=== PATIENT | female | born 1955 | race Caucasian/White ===

== ENCOUNTER 2017-12-06 12:02 | Inpatient (IN) | payer OTHER ==
[2017-12-06] MEDS ORDERED: SODIUM CHLORIDE 1,000 ML IV STA (12:22)
[2017-12-06] MEDS ORDERED: morphine CARPU-JECT 4 MG/1 ML DISP.SYRIN IVPUSH ONE ×3 (12:22→14:38)
[2017-12-06] MEDS ORDERED: ONDANSETRON 4 MG/2 ML VIAL IVPUSH ONE (12:22)
[2017-12-06] MEDS ORDERED: CIPROFLOXACIN 400 MG/D5W 400 MG/200 ML IVPB IVPB ONE (12:23)
--- NOTE | 2017-12-06 12:42 | PDOC ---
Attending Attestation - Resident Resident Name: Baron Galaviz - ED Attending Attestation I have performed the following: I have examined & evaluated the patient, The case was reviewed & discussed with the resident, I agree w/resident's findings & plan, Exceptions are as noted - HPI HPI: 12/06/17 12:42 Ms Pierre is a 62-year-old female with a history of recurrent diverticulitis who presents emergency department with a complaint of left lower quadrant pain. No fever or chills. She's noticed abdominal distention. - Physicial Exam PE: 12/06/17 12:50 GENERAL: The patient is in no acute distress. LUNGS: Breath sounds equal, clear to auscultation bilaterally. No wheezes, and no crackles. HEART:Regular rate and rhythm, normal S1 and S2 without murmur, rub or gallop. ABDOMEN: Soft, distended, LLQ tenderness to palpation EXTREMITIES: Normal range of motion NEUROLOGICAL: Cranial nerves II through XII grossly intact. Normal speech. No focal neurological deficits. MUSCULOSKELETAL: Back non-tender to palpation, no CVA tenderness SKIN: Warm, Dry, normal turgor, no rashes or lesions noted. - Medical Decision Making 12/06/17 12:51 62 yo F presenting to the ER with a complaint of abdominal pain H/o diverticulosis DD: Complicated vs Uncomplicated diverticulitis, SBO, Colitis, Will do: Labs CT Re assess 12/06/17 13:50 EKG: Sinus rhythm, rate of 71 bpm, axis is normal, intervals are normal, no ST elevations or depressions, T waves upright 12/06/17 13:52 Laboratory Tests 12/06/17 12/06/17 12/06/17 12:49 12:49 12:49 WBC 14.7 H Hgb 13.0 Hct 39.0 Plt Count 206 INR 0.99 BUN 14 Creatinine 0.5 L Lipase [address] P[address] CT demonstrates uncomplicated diverticulitis Will admit Given Abx
--- NOTE | 2017-12-06 12:58 | PDOC ---
History of Present Illness - General Chief Complaint: Pain, Acute Stated Complaint: ABD PAIN (PCP SENT) Time Seen by Provider: 12/06/17 12:12 History Source: Patient Exam Limitations: No Limitations - History of Present Illness Initial Comments: 12/06/17 12:52 Patient is a 62F with history of diverticulitis (x2, treated with outpatient abx by Dr Pinto, GI) and hysterectomy here today complaining of LLQ abdominal pain that started at midnight last night. Patient states that the pain onset insidiously and gradually worsened. She states that this feels like her prior episodes of diverticulitis. Patient denies fevers, chills, vomiting. Endorses nausea and abdominal distention. Denies pain with urination. Last bowel movement this morning. Pain is worse with inspiration, cough, movement. Past History - Past Medical History Allergies/Adverse Reactions: Allergies Allergy/AdvReac Type Severity Reaction Status Date / Time No Known Allergies Allergy Verified 12/06/17 12:06 COPD: No GI Disorders: Yes (diverticulitis) Hypercholesterolemia: Yes - Immunization History Immunization Up to Date: Yes - Suicide/Smoking/Psychosocial Hx Smoking History: Current every day smoker Number of Cigarettes Smoked Daily: 5 Information on smoking cessation initiated: No Review of Systems - Review of Systems Comments:: 12/06/17 12:55 GENERAL/CONSTITUTIONAL: No fever or chills. No weakness. HEAD, EYES, EARS, NOSE AND THROAT: No change in vision. No sore throat. CARDIOVASCULAR: No chest pain or shortness of breath RESPIRATORY: Positive for cough. Negative for wheezing, or hemoptysis. GASTROINTESTINAL: Positive for nausea. Negative for vomiting, diarrhea or constipation. GENITOURINARY: No dysuria, frequency, or change in urination. MUSCULOSKELETAL: No joint or muscle swelling or pain. No neck or back pain. SKIN: No rash NEUROLOGIC: No headache, vertigo, loss of consciousness, or change in strength/ sensation. HEMATOLOGIC/LYMPHATIC: No anemia, easy bleeding, or history of blood clots. ALLERGIC/IMMUNOLOGIC: No hives or skin allergy. *Physical Exam - Vital Signs Last Vital Signs Temp Pulse Resp BP Pulse Ox 97.8 F 90 18 177/98 100 12/06/17 12:06 12/06/17 12:06 12/06/17 12:06 12/06/17 12:06 12/06/17 12:06 - Physical Exam Comments: 12/06/17 12:58 GENERAL: Awake, alert, and fully oriented, in no acute distress HEAD: No signs of trauma, normocephalic, atraumatic EYES: PERRLA, EOMI, sclera anicteric, conjunctiva clear ENT: Auricles normal inspection, hearing grossly normal, nares patent, oropharynx clear without exudates. Moist mucosa NECK: Normal ROM, supple, no lymphadenopathy, JVD, or masses LUNGS: No distress, speaks full sentences, clear to auscultation bilaterally HEART: Regular rate and rhythm, normal S1 and S2, no murmurs, rubs or gallops, peripheral pulses normal and equal bilaterally. ABDOMEN: Distended, tender in LLQ, no rebound, positive for voluntary guarding. EXTREMITIES: Normal inspection, Normal range of motion, no edema. No clubbing or cyanosis. 2+ pulses bilaterally. NEUROLOGICAL: Cranial nerves II through XII grossly intact. Normal speech, no focal sensorimotor deficits SKIN: Warm, Dry, normal turgor, no rashes or lesions noted. ED Treatment Course - LABORATORY CBC & Chemistry Diagram: 12/06/17 12:49 12/06/17 12:49 - RADIOLOGY Radiology Studies Ordered: Category Date Time Status ABDOMEN & PELVIS CT WITH CONTR [CT] Stat CT Scan 12/06/17 12:25 Ordered CXRPORT [CHEST X-RAY PORTABLE*] [RAD] Stat Radiology 12/06/17 12:23 Ordered Medical Decision Making - Medical Decision Making 12/06/17 12:59 Patient is 62F with history of diverticulitis and hysterectomy here today complaining of 12 hours of LLQ pain. Pain consistent with prior episodes of diverticulitis. Exam consistent with diverticulitis, but also concerned for possible perforation. Will do abdominal workup, cxr, ekg. Will treat with fluids , morphine, zofran, metronidazole and cipro. Treating empirically for diverticulitis. 12/06/17 14:21 Laboratory Tests 12/06/17 12/06/17 12:49 12:49 WBC 14.7 H Hgb 13.0 Plt Count 206 BUN 14 Creatinine 0.5 L CBC shows leukocytosis to 15. CMP reassuring. Lipase negative. CXR shows no free air, no acute cardiopulmonary process. CT scan pending. 12/06/17 14:38 Pt reassessed, still having significant pain. Given 4mg more of morphine. 12/06/17 17:15 CT shows extensive diverticulitis. No evidence of perforation or diverticulitis. Will admit hospitalist. Consult put in for Dr Pinto. *DC/Admit/Observation/Transfer Diagnosis at time of Disposition: Diverticulitis - Discharge Dispostion Condition at time of disposition: Stable Decision to Admit order: Yes - Referrals Referrals: Joaquim Jackson [Primary Care Provider] - - Patient Instructions - Post Discharge Activity
[2017-12-06 13:03] LABS: BASO % 0.4 % (0-2.0); EOS % 2.5 % (0-4.5); LYMPH % 13.5 % (8-40); MCH 29.8 pg (25.7-33.7); MCHC 33.4 g/dl (32.0-36.0); MEAN CELL VOLUME 89.2 fl (80-96); MEAN PLT VOLUME 9.2 fl (7.5-11.1); MONO % 10.1 % (3.8-10.2); NEUT % 73.5 % (42.8-82.8); PLATELET COUNT 206 K/MM3 (134-434); RBC 4.37 M/mm3 (3.60-5.2); RDW 13.8 % (11.6-15.6); WHITE BLOOD COUNT 14.7 K/mm3 (4.0-10.0)
[2017-12-06] MEDS ORDERED: morphine SULFATE 4 MG/ML VIAL ONE ×3 (13:04→19:04)
[2017-12-06] MEDS ORDERED: ONDANSETRON 4 MG/2 ML VIAL ONE (13:04)
[2017-12-06 13:25] LABS: INR 0.99 (0.82-1.09); PROTHROMBIN TIME (PATIENT) 11.2 SEC (9.7-13.0)
[2017-12-06 13:41] LABS: ALBUMIN 3.8 g/dl (3.4-5.0); ANION GAP 7 (8-16); BLOOD UREA NITROGEN 14 mg/dL (7-18); CALCIUM 9.1 mg/dL (8.5-10.1); CHLORIDE 101 mmol/L (98-107); CO2 30 mmol/L (21-32); CREATININE 0.5 mg/dL (0.55-1.02); GLUCOSE,RANDOM 113 mg/dL (74-106); LIPASE 174 U/L (73-393); POTASSIUM 4.1 mmol/L (3.5-5.1); SGOT/AST 19 U/L (15-37); SGPT/ALT 27 U/L (12-78); SODIUM 138 mmol/L (136-145)
[2017-12-06 13:43] LABS: ALK PHOS 123 U/L (45-117); BILIRUBIN,TOTAL 0.3 mg/dL (0.2-1.0); TOT PROT 7.5 g/dl (6.4-8.2)
--- NOTE | 2017-12-06 15:04 | EKG ---
Test Reason : Blood Pressure : / mmHG Vent. Rate : 071 BPM Atrial Rate : 071 BPM P-R Int : 194 ms QRS Dur : 078 ms QT Int : 416 ms P-R-T Axes : 057 022 038 degrees QTc Int : 452 ms NORMAL SINUS RHYTHM POSSIBLE LEFT ATRIAL ENLARGEMENT BORDERLINE ECG NO PREVIOUS ECGS AVAILABLE Confirmed by SIMONE STEWART MD ([id number]) on 12/06/2017 3:03:30 PM Referred By: Confirmed By:SIMONE STEWART MD
[2017-12-06] MEDS ORDERED: morphine CARPU-JECT 4 MG/1 ML DISP.SYRIN IVPUSH PRN (18:26)
--- NOTE | 2017-12-06 20:06 | HP ---
Admitting History and Physical - Primary Care Physician PCP: Emre Grande - Admission Chief Complaint: abd pain History of Present Illness: 62F with history of diverticulitis (x2, treated with outpatient abx by Dr Pinto, GI) and hysterectomy here today complaining of LLQ abdominal pain that started at midnight last night. Patient states that the pain onset insidiously and gradually worsened. She states that this feels like her prior episodes of diverticulitis. Patient denies fevers, chills, vomiting. Endorses nausea and abdominal distention. Denies pain with urination. Last bowel movement this morning. Pain is worse with inspiration, cough, movement. - Past Medical History Gastrointestinal: Yes: Diverticulitis - Smoking History Smoking history: Current every day smoker Aproximately how many cigarettes per day: 5 Home Medications - Allergies Allergies/Adverse Reactions: Allergies Allergy/AdvReac Type Severity Reaction Status Date / Time No Known Allergies Allergy Verified 12/06/17 12:06 - Home Medications Home Medications: Ambulatory Orders Atorvastatin Ca [Lipitor] 10 mg PO HS 12/07/17 Physical Examination Vital Signs: Vital Signs Temperature 97.8 F 12/06/17 12:06 Pulse Rate 90 12/06/17 12:06 Respiratory Rate 18 12/06/17 12:06 Blood Pressure 177/98 12/06/17 12:06 O2 Sat by Pulse Oximetry (%) 100 12/06/17 12:06 Constitutional: Yes: No Distress HENT: Yes: Atraumatic Neck: Yes: Supple Cardiovascular: Yes: Regular Rate and Rhythm Respiratory: Yes: CTA Bilaterally Gastrointestinal: Yes: Normal Bowel Sounds, Tenderness (llq) Extremities: Yes: WNL Edema: No Peripheral Pulses WNL: Yes Neurological: Yes: Alert, Oriented Labs: CBC, BMP 12/06/17 12:49 12/06/17 12:49 Imaging - Results Cat Scan: Report Reviewed Problem List - Problems (1) Diverticulitis Assessment/Plan: npo, ivf, iv abx iv protonix gi consult id consult Code(s): K57.92 - DVTRCLI OF INTEST, PART UNSP, W/O PERF OR ABSCESS W/O BLEED Assessment/Plan Laboratory Tests 12/06/17 12/06/17 12/06/17 12:49 12:49 12:49 WBC 14.7 H RBC 4.37 Hgb 13.0 Hct 39.0 MCV 89.2 MCH 29.8 MCHC 33.4 RDW 13.8 Plt Count 206 MPV 9.2 Neutrophils % 73.5 Lymphocytes % 13.5 Monocytes % 10.1 Eosinophils % 2.5 Basophils % 0.4 PT with INR INR Sodium 138 Potassium 4.1 Chloride 101 Carbon Dioxide 30 Anion Gap 7 L BUN 14 Creatinine 0.5 L Creat Clearance w eGFR > 60 Random Glucose 113 H Calcium 9.1 Total Bilirubin 0.3 AST 19 ALT 27 Alkaline Phosphatase 123 H Total Protein 7.5 Albumin 3.8 Lipase 174 Blood Type B POSITIVE Antibody Screen Negative 12/06/17 12:49 WBC RBC Hgb Hct MCV MCH MCHC RDW Plt Count MPV Neutrophils % Lymphocytes % Monocytes % Eosinophils % Basophils % PT with INR 11.20 INR 0.99 Sodium Potassium Chloride Carbon Dioxide Anion Gap BUN Creatinine Creat Clearance w eGFR Random Glucose Calcium Total Bilirubin AST ALT Alkaline Phosphatase Total Protein Albumin Lipase Blood Type Antibody Screen Active Medications Generic Name Dose Route Start Last Admin Trade Name Freq PRN Reason Stop Dose Admin Morphine Sulfate 4 mg 12/06/17 18:26 12/06/17 19:06 Morphine Injection - IVPUSH 4 mg Q4H PRN Administration PAIN LEVEL 6-10 Active Medications Generic Name Dose Route Start Last Admin Trade Name Freq PRN Reason Stop Dose Admin Sodium Chloride 1,000 mls @ 75 mls/hr 12/06/17 20:15 12/08/17 15:49 Normal Saline - IV 75 mls/hr ASDIR NICOLE Administration Piperacillin Sod/Tazobactam 50 mls @ 100 mls/hr 12/06/17 21:15 12/08/17 09:19 Sod 3.375 gm/ Dextrose IVPB 100 mls/hr Q8H-IV NICOLE Administration Protocol Morphine Sulfate 2 mg 12/06/17 23:15 12/08/17 15:48 Morphine Sulfate IVPUSH 2 mg Q3H PRN Administration PAIN LEVEL 4-10
[2017-12-06 20:44] LABS: URINE APPEARANCE CLEAR; URINE BILIRUBIN NEGATIVE (<2.0 mg/dL); URINE BLOOD NEGATIVE (NEGATIVE); URINE COLOR STRAW; URINE GLUCOSE (UA) NEGATIVE (NEGATIVE); URINE KETONE NEGATIVE (NEGATIVE); URINE LEUK ESTERASE TRACE (NEGATIVE); URINE NITRITE NEGATIVE (NEGATIVE); URINE PROTEIN NEGATIVE (NEGATIVE); URINE UROBILINOGEN NEGATIVE mg/dL (0.2-1.0)
[2017-12-06 20:49] LABS: EPI CELLS RARE /HPF (FEW)
[2017-12-06] MEDS: SODIUM CHLORIDE 1,000 ML IV SCH (21:16)
[2017-12-06] MEDS ORDERED: PIPERACILLIN/TAZOBACTAM 3.375 GM VIAL IVPB ONE (21:20)
[2017-12-06] MEDS ORDERED: DEXTROSE 5%-WATER - 50 ML IVPB ONE (21:20)
[2017-12-06] MEDS: PIPERACILLIN/TAZOB 3.375 GM 3.375 GM in DEXTROSE 5%-WATER - 50 ML IVPB SCH (21:23)
[2017-12-06 21:52] VITALS: BMI 23.1
[2017-12-06] MEDS: morphine SULFATE 4 MG/ML VIAL IVPUSH PRN (23:21)
[2017-12-07] MEDS ORDERED: PIPERACILLIN/TAZOBACTAM 3.375 GM VIAL IVPB ONE ×3 (02:25→15:56)
[2017-12-07] MEDS ORDERED: DEXTROSE 5%-WATER - 50 ML IVPB ONE ×3 (02:26→15:56)
[2017-12-07] MEDS: PIPERACILLIN/TAZOB 3.375 GM 3.375 GM in DEXTROSE 5%-WATER - 50 ML IVPB SCH ×3 (03:10→17:18)
[2017-12-07 07:27] LABS: BASO % 0.3 % (0-2.0); EOS % 3.6 % (0-4.5); HEMOGLOBIN 12.6 GM/dL (10.7-15.3); LYMPH % 15.1 % (8-40); MCH 30.2 pg (25.7-33.7); MCHC 34.1 g/dl (32.0-36.0); MEAN CELL VOLUME 88.7 fl (80-96); MEAN PLT VOLUME 9.4 fl (7.5-11.1); MONO % 9.3 % (3.8-10.2); NEUT % 71.7 % (42.8-82.8); PLATELET COUNT 222 K/MM3 (134-434); RBC 4.17 M/mm3 (3.60-5.2); RDW 13.7 % (11.6-15.6); WHITE BLOOD COUNT 12.5 K/mm3 (4.0-10.0)
[2017-12-07 07:53] LABS: CHLORIDE 104 mmol/L (98-107); POTASSIUM 4.1 mmol/L (3.5-5.1); SODIUM 139 mmol/L (136-145)
[2017-12-07 08:04] LABS: ALBUMIN 3.4 g/dl (3.4-5.0); ALK PHOS 116 U/L (45-117); ANION GAP 8 (8-16); BILIRUBIN,TOTAL 0.7 mg/dL (0.2-1.0); BLOOD UREA NITROGEN 9 mg/dL (7-18); CALCIUM 8.7 mg/dL (8.5-10.1); CO2 27 mmol/L (21-32); CREATININE 0.7 mg/dL (0.55-1.02); GLUCOSE,RANDOM 108 mg/dL (74-106); SGOT/AST 14 U/L (15-37); SGPT/ALT 23 U/L (12-78); TOT PROT 6.8 g/dl (6.4-8.2)
[2017-12-07] MEDS: morphine SULFATE 4 MG/ML VIAL IVPUSH PRN ×3 (08:10→23:57)
--- NOTE | 2017-12-07 14:44 | CON.ID ---
Consult Consult Specialty:: infectious diseases Reason for Consultation:: diverticulitis - History of Present Illness Chief Complaint: abd pain History of Present Illness: 62F with history of diverticulitis x2, and hysterectomy here today complaining of LLQ abdominal pain that started at midnight last night. Patient states that the pain onset insidiously and gradually worsened. patient mentions that she had distension of her abdomen currently she is feeling a little better,but she is very tender . Patient denies fevers, chills, vomiting. Endorses nausea and abdominal distention. Denies pain with urination. Pain is worse with inspiration, cough, movement. otherwise patient is stable - History Source History Provided By: Patient Limitations to Obtaining History: No Limitations - Past Medical History Gastrointestinal: Yes: Diverticulitis - Alcohol/Substance Use Hx Alcohol Use: No - Smoking History Smoking history: Current every day smoker Aproximately how many cigarettes per day: 5 Home Medications - Allergies Allergies/Adverse Reactions: Allergies Allergy/AdvReac Type Severity Reaction Status Date / Time No Known Allergies Allergy Verified 12/06/17 12:06 - Home Medications Home Medications: Ambulatory Orders Atorvastatin Ca [Lipitor] 10 mg PO HS 12/07/17 Review of Systems - Review of Systems Constitutional: reports: No Symptoms Eyes: reports: No Symptoms HENT: reports: No Symptoms Neck: reports: No Symptoms Cardiovascular: reports: No Symptoms Respiratory: reports: No Symptoms Gastrointestinal: reports: Abdominal Pain, Bloating, Other Genitourinary: reports: No Symptoms Musculoskeletal: reports: No Symptoms Integumentary: reports: No Symptoms Neurological: reports: No Symptoms Endocrine: reports: No Symptoms Hematology/Lymphatic: reports: No Symptoms Psychiatric: reports: No Symptoms Physical Exam Vital Signs: Vital Signs Temperature 99.1 F 12/07/17 13:58 Pulse Rate 74 12/07/17 13:58 Respiratory Rate 18 12/07/17 13:58 Blood Pressure 147/76 12/07/17 13:58 O2 Sat by Pulse Oximetry (%) 98 12/06/17 20:40 Constitutional: Yes: Well Nourished, Calm, Moderate Distress Eyes: Yes: Conjunctiva Clear HENT: Yes: Atraumatic, Normocephalic Neck: Yes: Supple, Trachea Midline Cardiovascular: Yes: Regular Rate and Rhythm Respiratory: Yes: Regular, CTA Bilaterally Gastrointestinal: Yes: Soft, Hypoactive Bowel Sounds, Tenderness. No: Tenderness, Rebound Musculoskeletal: Yes: WNL Extremities: Yes: WNL Neurological: Yes: Alert, Oriented Psychiatric: Yes: Alert, Oriented Labs: CBC, BMP 12/07/17 06:30 12/07/17 06:30 Imaging - Results Chest X-ray: Report Reviewed, Image Reviewed Cat Scan: Report Reviewed, Image Reviewed Assessment/Plan Problem List - Problems (1) Diverticulitis Code(s): K57.92 - DVTRCLI OF INTEST, PART UNSP, W/O PERF OR ABSCESS W/O BLEED abd pain plan will start patient on zosyn npo hydration gi to see the patient rest continue as per the team
--- NOTE | 2017-12-07 18:25 | CON.GI ---
Consult Consult Specialty:: GI: Dr. Chan covering for Dr. Vega who resumes care Referred by:: Dr. Kwon Reason for Consultation:: Recurrent diverticulitis - History of Present Illness Chief Complaint: "This is my 3rd episode of Diverticulitis" History of Present Illness: 62F admitted through [facility] ER yesterday for progressively worsening left lower abdominal pain and bloating. She states that she has loose BM's last week that resolved and otherwise was in her usual state of health. She had been on antibiotics a month ago for dental work. In ER triage vitals revealed Ms. Pierre to be afebrile and hypertensive. Blood work revealed a WBC of 14.[address] scan of the abdomen and pelvis revealed an extensive diverticulitis of the mid to distal descending colon. She was admitted, started on Abx and IV fluids. She explains that she is followed by Dr. Jonas Joyce, [facility] who has treated her in the past for diverticulitis. She has had two other episodes , one 6 months ago and the other 6 months prior to that. She says that these episodes were treated on an outpatient basis with cipro and flagyl and that this most recent episode if the most severe in terms of pain. She had a colonoscopy [address] Joyce that was "OK". There is no family history of colorectal cancer or inflammatory bowel disease. Overall Ms. Pierre still describes the pain as intense but somewhat improved from admission. She denies rectal bleeding. Her last bowel movement was this past monday and was formed. - History Source History Provided By: Patient, Family Member ( present at bedside) Limitations to Obtaining History: No Limitations - Past Medical History Cardio/Vascular: Yes: Hyperlipdemia Gastrointestinal: Yes: Diverticulitis (recurrent with 2 epispdes prior to the over the last 1.5 years), Diverticulosis - Past Surgical History Past Surgical History: Yes: Hysterectomy (RAVI/BSO) Additional Surgical History: bone graft to gums - Alcohol/Substance Use Hx Alcohol Use: Yes (occasional) History of Substance Use: reports: None - Smoking History Smoking history: Current every day smoker Have you smoked in the past 12 months: Yes Aproximately how many cigarettes per day: 5 - Social History Usual Living Arrangement: With Spouse ADL: Independent Occupation: Works for [employer] - [employer] Place of : Other ([place]) History of Recent Travel: No Home Medications - Allergies Allergies/Adverse Reactions: Allergies Allergy/AdvReac Type Severity Reaction Status Date / Time No Known Allergies Allergy Verified 12/06/17 12:06 - Home Medications Home Medications: Ambulatory Orders Atorvastatin Ca [Lipitor] 10 mg PO HS 12/07/17 Family Disease History - Family Disease History Family Disease History: Other: Father (: 76: CAD/CT), Mother (: 80: fall with intracranial bleed), Brother (None), Sister (1, alive: healthy), Son ( None), Daughter (None) Other Family History: No family history of colorectal cancer or other GI malignancy Review of Systems - Review of Systems Constitutional: denies: Chills, Fever Cardiovascular: denies: Chest Pain Respiratory: denies: Cough, SOB Gastrointestinal: reports: Abdominal Pain, Bloating, Diarrhea (resolved last week), Nausea. denies: Constipation, Dysphagia, Melena, Rectal Bleeding, Vomiting, Vomiting Blood Physical Exam-GI Vital Signs: Vital Signs Temperature 99.1 F 12/07/17 13:58 Pulse Rate 74 12/07/17 13:58 Respiratory Rate 18 12/07/17 13:58 Blood Pressure 147/76 12/07/17 13:58 O2 Sat by Pulse Oximetry (%) 98 12/06/17 20:40 Constitutional: Yes: Calm Eyes: No: Sclera Icterus Cardiovascular: Yes: Regular Rate and Rhythm. No: Murmur Respiratory: Yes: CTA Bilaterally Gastrointestinal Inspection: Yes: Distention (Softly protuberant abdomen). No: Scars ...Auscultate: Yes: Normoactive Bowel Sounds ...Palpate: Yes: Guarding, Soft, Tenderness (marken TTP in the left lower abdomen), Tenderness, Rebound ...Percussion: No: Tympanitic Edema: No (No LE edema) Neurological: Yes: Alert, Oriented Labs: CBC, BMP 12/07/17 06:30 12/07/17 06:30 INR, PTT INR 0.99 (0.82-1.09) 12/06/17 12:49 Imaging - Results Cat Scan: Report Reviewed, Image Reviewed (appears that most extensive inflammatory changes are at the junction of the sigmoid / descending colon.) Problem List - Problems (1) Diverticulitis large intestine Assessment/Plan: Recurrent in nature: This is the 3rd and most significant episode Clinically Ms. Pierre still has a significant amount of abdominal pain on exam with rebound and guarding however describes improvement from initial presentation. Leukocytosis has also improved a bit: Advise: NPO IV hydration with fluid management per PMD. Ms. Pierre could likely handle more maintenance fluid Surgical consult placed to Dr. Zurita to have them on board and given severity of most recent episode, discuss possible elective resection when acute issues are resolved Broad spectrum IV abx: Currently on Zosyn with improving WBC's and ID following If diarrhea, given recent and periodic antibiotics through the year given dental work, check stool for C. Diff Daily labs: CBC, BMP, CRP (ordered for tomorrow) Close monitoring of abdominal exam When acute issues resolve, Ms. Pierre can follow-up with Dr. Jonas Joyce for reevaluation, discuss possible repeat colonoscopy Code(s): K57.32 - DVTRCLI OF LG INT W/O PERFORATION OR ABSCESS W/O BLEEDING Qualifiers: Diverticulitis bleeding: without bleeding Diverticulitis complication: without perforation or abscess Qualified Code(s): K57.32 - Diverticulitis of large intestine without perforation or abscess without bleeding
--- NOTE | 2017-12-07 18:32 | PN ---
Progress Note, Physician History of Present Illness: still has belly pain - Current Medication List Current Medications: Active Medications Sodium Chloride (Normal Saline -) 1,000 mls @ 75 mls/hr IV ASDIR NICOLE Last Admin: 12/06/17 21:16 Dose: 75 mls/hr Piperacillin Sod/Tazobactam (Sod 3.375 gm/ Dextrose) 50 mls @ 100 mls/hr IVPB Q8H-IV NICOLE PRN Reason: Protocol Last Admin: 12/07/17 17:18 Dose: 100 mls/hr Morphine Sulfate (Morphine Sulfate) 2 mg IVPUSH Q3H PRN PRN Reason: PAIN LEVEL 4-10 Last Admin: 12/07/17 16:01 Dose: 2 mg - Objective Vital Signs: Vital Signs Temperature 99.1 F 12/07/17 13:58 Pulse Rate 74 12/07/17 13:58 Respiratory Rate 18 12/07/17 13:58 Blood Pressure 147/76 12/07/17 13:58 O2 Sat by Pulse Oximetry (%) 98 12/06/17 20:40 Constitutional: Yes: No Distress HENT: Yes: Atraumatic Neck: Yes: Supple Cardiovascular: Yes: Regular Rate and Rhythm Respiratory: Yes: CTA Bilaterally Gastrointestinal: Yes: Normal Bowel Sounds, Tenderness (llq) Extremities: Yes: WNL Neurological: Yes: Alert, Oriented Labs: CBC, BMP 12/07/17 06:30 12/07/17 06:30 INR, PTT INR 0.99 (0.82-1.09) 12/06/17 12:49 Problem List - Problems (1) Diverticulitis Assessment/Plan: npo, ivf, iv abx iv protonix Code(s): K57.92 - DVTRCLI OF INTEST, PART UNSP, W/O PERF OR ABSCESS W/O BLEED
[2017-12-07] MEDS: SODIUM CHLORIDE 1,000 ML IV SCH (20:15)
[2017-12-08] MEDS ORDERED: DEXTROSE 5%-WATER - 50 ML IVPB ONE ×3 (00:46→17:30)
[2017-12-08] MEDS ORDERED: PIPERACILLIN/TAZOBACTAM 3.375 GM VIAL IVPB ONE ×3 (00:46→17:30)
[2017-12-08] MEDS: SODIUM CHLORIDE 1,000 ML IV SCH ×2 (02:42→15:49)
[2017-12-08] MEDS: PIPERACILLIN/TAZOB 3.375 GM 3.375 GM in DEXTROSE 5%-WATER - 50 ML IVPB SCH ×3 (02:42→17:41)
[2017-12-08] MEDS: morphine SULFATE 4 MG/ML VIAL IVPUSH PRN ×3 (07:48→22:23)
[2017-12-08 09:02] LABS: BASO % 0.4 % (0-2.0); EOS % 3.4 % (0-4.5); HEMATOCRIT 37.7 % (32.4-45.2); HEMOGLOBIN 12.7 GM/dL (10.7-15.3); LYMPH % 14.2 % (8-40); MCH 29.8 pg (25.7-33.7); MCHC 33.8 g/dl (32.0-36.0); MEAN CELL VOLUME 88.2 fl (80-96); MEAN PLT VOLUME 9.2 fl (7.5-11.1); MONO % 6.4 % (3.8-10.2); NEUT % 75.6 % (42.8-82.8); PLATELET COUNT 219 K/MM3 (134-434); RBC 4.27 M/mm3 (3.60-5.2); RDW 13.6 % (11.6-15.6); WHITE BLOOD COUNT 13.6 K/mm3 (4.0-10.0)
[2017-12-08 09:31] LABS: ANION GAP 9 (8-16); BLOOD UREA NITROGEN 7 mg/dL (7-18); CALCIUM 8.4 mg/dL (8.5-10.1); CHLORIDE 106 mmol/L (98-107); CO2 24 mmol/L (21-32); GLUCOSE,RANDOM 79 mg/dL (74-106); POTASSIUM 3.9 mmol/L (3.5-5.1); SODIUM 139 mmol/L (136-145)
[2017-12-08 09:34] LABS: CREATININE 0.5 mg/dL (0.55-1.02)
--- NOTE | 2017-12-08 13:59 | PN ---
Progress Note, Physician History of Present Illness: patient feeling better pain still present still very tender in the abd but better - Current Medication List Current Medications: Active Medications Sodium Chloride (Normal Saline -) 1,000 mls @ 75 mls/hr IV ASDIR NICOLE Last Admin: 12/08/17 02:42 Dose: 75 mls/hr Piperacillin Sod/Tazobactam (Sod 3.375 gm/ Dextrose) 50 mls @ 100 mls/hr IVPB Q8H-IV NICOLE PRN Reason: Protocol Last Admin: 12/08/17 09:19 Dose: 100 mls/hr Morphine Sulfate (Morphine Sulfate) 2 mg IVPUSH Q3H PRN PRN Reason: PAIN LEVEL 4-10 Last Admin: 12/08/17 07:48 Dose: 2 mg - Objective Vital Signs: Vital Signs Temperature 98 F 12/08/17 07:50 Pulse Rate 62 12/08/17 07:50 Respiratory Rate 18 12/08/17 07:50 Blood Pressure 138/82 12/08/17 07:50 O2 Sat by Pulse Oximetry (%) 97 12/07/17 21:00 Constitutional: Yes: Calm, Mild Distress Cardiovascular: Yes: Regular Rate and Rhythm Respiratory: Yes: Regular, CTA Bilaterally Gastrointestinal: Yes: Soft, Hypoactive Bowel Sounds, Tenderness. No: Tenderness, Rebound Musculoskeletal: Yes: WNL Extremities: Yes: WNL Neurological: Yes: Alert, Oriented Psychiatric: Yes: Alert, Oriented Labs: CBC, BMP 12/08/17 08:25 12/08/17 08:25 INR, PTT INR 0.99 (0.82-1.09) 12/06/17 12:49 Assessment/Plan Problem List - Problems (1) Diverticulitis Code(s): K57.92 - DVTRCLI OF INTEST, PART UNSP, W/O PERF OR ABSCESS W/O BLEED abd pain plan conitnue abx npo hydration monitor wbc rest continue as per the team
--- NOTE | 2017-12-08 17:03 | PN ---
Progress Note, Physician History of Present Illness: pain is better hungry - Current Medication List Current Medications: Active Medications Sodium Chloride (Normal Saline -) 1,000 mls @ 75 mls/hr IV ASDIR NICOLE Last Admin: 12/08/17 15:49 Dose: 75 mls/hr Piperacillin Sod/Tazobactam (Sod 3.375 gm/ Dextrose) 50 mls @ 100 mls/hr IVPB Q8H-IV NICOLE PRN Reason: Protocol Last Admin: 12/08/17 09:19 Dose: 100 mls/hr Morphine Sulfate (Morphine Sulfate) 2 mg IVPUSH Q3H PRN PRN Reason: PAIN LEVEL 4-10 Last Admin: 12/08/17 15:48 Dose: 2 mg - Objective Vital Signs: Vital Signs Temperature 98.7 F 12/08/17 14:11 Pulse Rate 68 12/08/17 14:11 Respiratory Rate 68 H 12/08/17 14:11 Blood Pressure 148/71 12/08/17 14:11 O2 Sat by Pulse Oximetry (%) 97 12/07/17 21:00 Constitutional: Yes: No Distress HENT: Yes: Atraumatic Neck: Yes: Supple Cardiovascular: Yes: Regular Rate and Rhythm Respiratory: Yes: CTA Bilaterally Gastrointestinal: Yes: Normal Bowel Sounds, Tenderness (llq ...better) Extremities: Yes: WNL Neurological: Yes: Alert, Oriented Labs: CBC, BMP 12/08/17 08:25 12/08/17 08:25 INR, PTT INR 0.99 (0.82-1.09) 12/06/17 12:49 Problem List - Problems (1) Diverticulitis Assessment/Plan: will give a trial of clear liquid diet Code(s): K57.92 - DVTRCLI OF INTEST, PART UNSP, W/O PERF OR ABSCESS W/O BLEED
--- NOTE | 2017-12-08 17:32 | PN ---
GI Progress Note Subjective: Gi NOte: LLQ pain is less intense. Has hunger. NO BM so far. Remains afebrile and WBC is decreasing. - Objective Vital Signs: Vital Signs Temperature 98.7 F 12/08/17 14:11 Pulse Rate 68 12/08/17 14:11 Respiratory Rate 68 H 12/08/17 14:11 Blood Pressure 148/71 12/08/17 14:11 O2 Sat by Pulse Oximetry (%) 97 12/07/17 21:00 Constitutional: Calm ...Auscultate: Yes: Normoactive Bowel Sounds ...Palpate: Yes: Soft, Tenderness (LLQ but no rebound) Labs: CBC, BMP 12/08/17 08:25 12/08/17 08:25 INR, PTT INR 0.99 (0.82-1.09) 12/06/17 12:49 Problem List - Problems (1) Diverticulitis large intestine Assessment/Plan: Appears to be responding to antibiotics. Clear liquids already ordered. Dr. Mcintosh will be covering this weekend until 12/11. . Code(s): K57.32 - DVTRCLI OF LG INT W/O PERFORATION OR ABSCESS W/O BLEEDING Qualifiers: Diverticulitis bleeding: without bleeding Diverticulitis complication: without perforation or abscess Qualified Code(s): K57.32 - Diverticulitis of large intestine without perforation or abscess without bleeding
--- NOTE | 2017-12-08 18:21 | PN ---
Progress Note (short form) - Note Progress Note: surgery pt seen and examined. full consult dictated 62f with 3rd bout of diverticulitis in 13 months, first hospitalization, non complicated, on liquids. wbc 13. thickened segment of sigmoid colon on ct. plan- multiple bouts within short time and now hospitalized in 62 f. last colonoscopy 2011. Pt wishes to cont medical management. Should consider colonoscopy in 6 weeks to r/o malignancy and elective sigmoid colectomy to prevent recurrence. Any surgery in the acute setting would require a colostomy.
--- NOTE | 2017-12-08 19:27 | CONS ---
DATE OF CONSULTATION: 12/08/2017 REASON FOR CONSULTATION: Recurrent diverticulitis. REQUESTING PHYSICIAN: Trey Chan, This is an inpatient consultation. BRIEF HISTORY: This is a 62-year-old female who has now been admitted for her third bout of diverticulitis since November of 2016. This is the first time she has required hospital admission. She was noted to have diverticulitis on CAT scan. She has been placed on intravenous antibiotics, Zosyn, and is currently being put on liquid diet per the GI service. Her last colonoscopy was in 2011. She denies any recent weight loss. Denies blood in her stool. Denies diarrhea. PAST MEDICAL HISTORY: Significant for hyperlipidemia. HOME MEDICATIONS: Include Lipitor. SOCIAL HISTORY: Positive for occasional alcohol consumption as well as occasional tobacco consumption. She has been encouraged to quit. PAST SURGICAL HISTORY: Includes a hysterectomy for fibroid disease many years ago. FAMILY HISTORY: Negative for malignancy in the immediate family. REVIEW OF SYSTEMS: General: Denies fatigue or malaise. Cardiac: Denies chest pain or palpitations. Respiratory: Denies shortness of breath or wheeze. Gastrointestinal: As in the HPI. Genitourinary: Denies dysuria. Musculoskeletal: Denies joint pain or joint swelling. Psychiatric: Denies anxiety, depression, or hearing voices. PHYSICAL EXAMINATION: General: This is a well-developed, well-nourished, 62-year-old female in no distress. Vital Signs: She is afebrile, has been since admission. HEENT: Her head is normocephalic. Her sclerae are anicteric. Neck: Supple. Chest: Clear. Abdomen: Soft. It is nondistended. She has mild tenderness in the left lower quadrant. She has no rebound. Extremities: No edema. LABORATORY DATA: Her white blood cell count is elevated at 13.6. There is no shift. Her chemistries are unremarkable with the exception of a C-reactive protein that is minimally elevated at 3.8. On review of her imaging, she has a CAT scan of her abdomen and pelvis which shows extensive diverticulitis of the descending colon without abscess formation, at its junction with the sigmoid colon. There is no perforation. There is no abscess noted. ASSESSMENT: This is a 62-year-old female with now 3 bouts of diverticulitis in a 13-month period, now becoming more serious, requiring hospitalization. She has an elevated white blood cell count and is being treated with intravenous antibiotics and already been by the medical service. At this point, the patient is not interested in operative management acutely because this would require a colostomy, and she wishes to continue with medical management. Her last colonoscopy was in 2011; so, there is a small possibility that this is actually a malignancy and not diverticulitis, but she is willing to take that risk. At this point, patient should strongly consider elective surgical resection in 6 weeks' time after colonoscopy if medical management is successful. This could be done to prevent future recurrences. I suspect her surgery could be done laparoscopically, although likely she will require a splenic flexure takedown in order to allow enough length in order to reconnect. Patient currently appears nontoxic and would recommend followup with myself or Dr. Eber Zurita after discharge to discuss possible elective surgery. Obviously, if she fails medical management, she will require surgery with an open sigmoid colectomy and colostomy. DO EVRE CAT/[id number] MTDD
[2017-12-09] MEDS ORDERED: PIPERACILLIN/TAZOBACTAM 3.375 GM VIAL IVPB ONE ×3 (00:49→16:16)
[2017-12-09] MEDS ORDERED: DEXTROSE 5%-WATER - 50 ML IVPB ONE ×3 (00:49→16:16)
[2017-12-09] MEDS: PIPERACILLIN/TAZOB 3.375 GM 3.375 GM in DEXTROSE 5%-WATER - 50 ML IVPB SCH ×3 (01:32→17:07)
[2017-12-09 08:22] LABS: BASO % 0.7 % (0-2.0); EOS % 3.8 % (0-4.5); HEMATOCRIT 34.6 % (32.4-45.2); HEMOGLOBIN 12.1 GM/dL (10.7-15.3); LYMPH % 17.9 % (8-40); MCH 30.8 pg (25.7-33.7); MCHC 34.8 g/dl (32.0-36.0); MEAN CELL VOLUME 88.3 fl (80-96); MEAN PLT VOLUME 9.1 fl (7.5-11.1); MONO % 9.4 % (3.8-10.2); NEUT % 68.2 % (42.8-82.8); PLATELET COUNT 199 K/MM3 (134-434); RBC 3.92 M/mm3 (3.60-5.2); RDW 13.6 % (11.6-15.6); WHITE BLOOD COUNT 8.4 K/mm3 (4.0-10.0)
[2017-12-09 08:35] LABS: ANION GAP 6 (8-16); BLOOD UREA NITROGEN 7 mg/dL (7-18); CALCIUM 8.4 mg/dL (8.5-10.1); CHLORIDE 106 mmol/L (98-107); CO2 28 mmol/L (21-32); CREATININE 0.5 mg/dL (0.55-1.02); GLUCOSE,RANDOM 88 mg/dL (74-106); POTASSIUM 4.1 mmol/L (3.5-5.1); SODIUM 140 mmol/L (136-145)
[2017-12-09] MEDS: SODIUM CHLORIDE 1,000 ML IV SCH ×3 (09:41→21:23)
--- NOTE | 2017-12-09 11:58 | PN ---
Progress Note, Physician History of Present Illness: No events overnight. +loose stool and mild, sharp, postprandial pain in LLQ last night. No pain this am. Tolerating full liquid diet otherwise. Leukocytosis resolved. Tmax 97.8. Mild LLQ tenderness on palpation w/o guarding , or rebound. - Current Medication List Current Medications: Active Medications Sodium Chloride (Normal Saline -) 1,000 mls @ 75 mls/hr IV ASDIR NICOLE Last Admin: 12/09/17 09:41 Dose: 75 mls/hr Piperacillin Sod/Tazobactam (Sod 3.375 gm/ Dextrose) 50 mls @ 100 mls/hr IVPB Q8H-IV NICOLE PRN Reason: Protocol Last Admin: 12/09/17 09:41 Dose: 100 mls/hr Morphine Sulfate (Morphine Sulfate) 2 mg IVPUSH Q3H PRN PRN Reason: PAIN LEVEL 4-10 Last Admin: 12/08/17 22:23 Dose: 2 mg - Objective Vital Signs: Vital Signs Temperature 97.8 F 12/09/17 06:00 Pulse Rate 76 12/09/17 09:00 Respiratory Rate 18 12/09/17 09:00 Blood Pressure 155/98 12/09/17 09:00 O2 Sat by Pulse Oximetry (%) 99 12/08/17 19:57 Constitutional: Yes: Well Nourished, No Distress, Calm Labs: CBC, BMP 12/09/17 07:30 12/09/17 07:30 INR, PTT INR 0.99 (0.82-1.09) 12/06/17 12:49 Laboratory Last Values WBC 8.4 K/mm3 (4.0-10.0) D 12/09/17 07:30 RBC 3.92 M/mm3 (3.60-5.2) 12/09/17 07:30 Hgb 12.1 GM/dL (10.7-15.3) 12/09/17 07:30 Hct 34.6 % (32.4-45.2) 12/09/17 07:30 MCV 88.3 fl (80-96) 12/09/17 07:30 MCH 30.8 pg (25.7-33.7) 12/09/17 07:30 MCHC 34.8 g/dl (32.0-36.0) 12/09/17 07:30 RDW 13.6 % (11.6-15.6) 12/09/17 07:30 Plt Count 199 K/MM3 (134-434) 12/09/17 07:30 MPV 9.1 fl (7.5-11.1) 12/09/17 07:30 Neutrophils % 68.2 % (42.8-82.8) 12/09/17 07:30 Lymphocytes % 17.9 % (8-40) D 12/09/17 07:30 Monocytes % 9.4 % (3.8-10.2) 12/09/17 07:30 Eosinophils % 3.8 % (0-4.5) 12/09/17 07:30 Basophils % 0.7 % (0-2.0) 12/09/17 07:30 PT with INR 11.20 SEC (9.7-13.0) 12/06/17 12:49 INR 0.99 (0.82-1.09) 12/06/17 12:49 Sodium 140 mmol/L (136-145) 12/09/17 07:30 Potassium 4.1 mmol/L (3.5-5.1) 12/09/17 07:30 Chloride 106 mmol/L (98-107) 12/09/17 07:30 Carbon Dioxide 28 mmol/L (21-32) 12/09/17 07:30 Anion Gap 6 (8-16) L 12/09/17 07:30 BUN 7 mg/dL (7-18) 12/09/17 07:30 Creatinine 0.5 mg/dL (0.55-1.02) L 12/09/17 07:30 Creat Clearance w eGFR > 60 (>60) 12/07/17 06:30 Random Glucose 88 mg/dL (74-106) 12/09/17 07:30 Calcium 8.4 mg/dL (8.5-10.1) L 12/09/17 07:30 Total Bilirubin 0.7 mg/dL (0.2-1.0) D 12/07/17 06:30 AST 14 U/L (15-37) L 12/07/17 06:30 ALT 23 U/L (12-78) 12/07/17 06:30 Alkaline Phosphatase 116 U/L (45-117) 12/07/17 06:30 C-Reactive Protein 1.8 MG/DL (0.00-0.3) H 12/09/17 07:30 Total Protein 6.8 g/dl (6.4-8.2) 12/07/17 06:30 Albumin 3.4 g/dl (3.4-5.0) 12/07/17 06:30 Lipase 174 U/L (73-393) 12/06/17 12:49 Urine Color Straw 12/06/17 20:30 Urine Appearance Clear 12/06/17 20:30 Urine pH 7.0 (5.0-8.0) 12/06/17 20:30 Ur Specific [place] 1.030 (1.001-1.035) 12/06/17 20:30 Urine Protein Negative (NEGATIVE) 12/06/17 20:30 Urine Glucose (UA) Negative (NEGATIVE) 12/06/17 20:30 Urine Ketones Negative (NEGATIVE) 12/06/17 20:30 Urine Blood Negative (NEGATIVE) 12/06/17 20:30 Urine Nitrite Negative (NEGATIVE) 12/06/17 20:30 Urine Bilirubin Negative (<2.0 mg/dL) 12/06/17 20:30 Urine Urobilinogen Negative mg/dL (0.2-1.0) 12/06/17 20:30 Ur Leukocyte Esterase Trace (NEGATIVE) 12/06/17 20:30 Urine WBC (Auto) 3 /hpf (3-5) 12/06/17 20:30 Urine RBC (Auto) 1 /hpf (0-3) 12/06/17 20:30 Ur Epithelial Cells Rare /HPF (FEW) 12/06/17 20:30 Blood Type B POSITIVE 12/06/17 12:49 Antibody Screen Negative 12/06/17 12:49 Problem List - Problems (1) Diverticulitis Code(s): K57.92 - DVTRCLI OF INTEST, PART UNSP, W/O PERF OR ABSCESS W/O BLEED (2) Diverticulitis large intestine Code(s): K57.32 - DVTRCLI OF LG INT W/O PERFORATION OR ABSCESS W/O BLEEDING Qualifiers: Diverticulitis bleeding: without bleeding Diverticulitis complication: without perforation or abscess Qualified Code(s): K57.32 - Diverticulitis of large intestine without perforation or abscess without bleeding Assessment/Plan As discussed with the patient and her nurse, will advance this evening and observe. CBC in am.
--- NOTE | 2017-12-09 13:48 | PN ---
Progress Note, Physician History of Present Illness: patient feeling better pain still present tenderness improving patient started on soft diet not very hungry - Current Medication List Current Medications: Active Medications Sodium Chloride (Normal Saline -) 1,000 mls @ 75 mls/hr IV ASDIR NICOLE Last Admin: 12/09/17 09:41 Dose: 75 mls/hr Piperacillin Sod/Tazobactam (Sod 3.375 gm/ Dextrose) 50 mls @ 100 mls/hr IVPB Q8H-IV NICOLE PRN Reason: Protocol Last Admin: 12/09/17 09:41 Dose: 100 mls/hr Morphine Sulfate (Morphine Sulfate) 2 mg IVPUSH Q3H PRN PRN Reason: PAIN LEVEL 4-10 Last Admin: 12/08/17 22:23 Dose: 2 mg - Objective Vital Signs: Vital Signs Temperature 97.8 F 12/09/17 06:00 Pulse Rate 76 12/09/17 09:00 Respiratory Rate 18 12/09/17 09:00 Blood Pressure 155/98 12/09/17 09:00 O2 Sat by Pulse Oximetry (%) 99 12/08/17 19:57 Constitutional: Yes: No Distress, Calm Cardiovascular: Yes: Regular Rate and Rhythm Respiratory: Yes: Regular, CTA Bilaterally Gastrointestinal: Yes: Soft, Hypoactive Bowel Sounds, Tenderness (improving) Musculoskeletal: Yes: WNL Extremities: Yes: WNL Neurological: Yes: Alert, Oriented Psychiatric: Yes: Alert, Oriented Labs: CBC, BMP 12/09/17 07:30 12/09/17 07:30 INR, PTT INR 0.99 (0.82-1.09) 12/06/17 12:49 Assessment/Plan Problem List - Problems (1) Diverticulitis Code(s): K57.92 - DVTRCLI OF INTEST, PART UNSP, W/O PERF OR ABSCESS W/O BLEED abd pain plan conitnue abx diet as tolerated wbc has normalized continue monitoring
--- NOTE | 2017-12-09 16:33 | PN ---
Progress Note, Physician History of Present Illness: feeling good - Current Medication List Current Medications: Active Medications Sodium Chloride (Normal Saline -) 1,000 mls @ 75 mls/hr IV ASDIR NICOLE Last Admin: 12/09/17 09:41 Dose: 75 mls/hr Piperacillin Sod/Tazobactam (Sod 3.375 gm/ Dextrose) 50 mls @ 100 mls/hr IVPB Q8H-IV NICOLE PRN Reason: Protocol Last Admin: 12/09/17 09:41 Dose: 100 mls/hr Morphine Sulfate (Morphine Sulfate) 2 mg IVPUSH Q3H PRN PRN Reason: PAIN LEVEL 4-10 Last Admin: 12/08/17 22:23 Dose: 2 mg - Objective Vital Signs: Vital Signs Temperature 98.3 F 12/09/17 15:03 Pulse Rate 58 L 12/09/17 15:03 Respiratory Rate 18 12/09/17 15:03 Blood Pressure 133/76 12/09/17 15:03 O2 Sat by Pulse Oximetry (%) 99 12/08/17 19:57 Constitutional: Yes: No Distress HENT: Yes: Atraumatic Neck: Yes: Supple Cardiovascular: Yes: Regular Rate and Rhythm Respiratory: Yes: CTA Bilaterally Gastrointestinal: Yes: Normal Bowel Sounds Extremities: Yes: WNL Peripheral Pulses WNL: Yes Neurological: Yes: Alert, Oriented Labs: CBC, BMP 12/09/17 07:30 12/09/17 07:30 INR, PTT INR 0.99 (0.82-1.09) 12/06/17 12:49 Problem List - Problems (1) Diverticulitis Assessment/Plan: on lactose free diet iv abx prn painmeds Code(s): K57.92 - DVTRCLI OF INTEST, PART UNSP, W/O PERF OR ABSCESS W/O BLEED
[2017-12-09] MEDS: morphine SULFATE 4 MG/ML VIAL IVPUSH PRN (21:23)
[2017-12-10] MEDS ORDERED: PIPERACILLIN/TAZOBACTAM 3.375 GM VIAL IVPB ONE ×3 (01:23→18:06)
[2017-12-10] MEDS ORDERED: DEXTROSE 5%-WATER - 50 ML IVPB ONE ×3 (01:23→18:06)
[2017-12-10] MEDS: PIPERACILLIN/TAZOB 3.375 GM 3.375 GM in DEXTROSE 5%-WATER - 50 ML IVPB SCH ×3 (01:26→18:09)
[2017-12-10 07:29] LABS: BASO % 0.7 % (0-2.0); EOS % 4.7 % (0-4.5); HEMATOCRIT 35.6 % (32.4-45.2); HEMOGLOBIN 11.9 GM/dL (10.7-15.3); LYMPH % 20.6 % (8-40); MCH 29.7 pg (25.7-33.7); MCHC 33.5 g/dl (32.0-36.0); MEAN CELL VOLUME 88.6 fl (80-96); MEAN PLT VOLUME 9.6 fl (7.5-11.1); MONO % 11.6 % (3.8-10.2); NEUT % 62.4 % (42.8-82.8); PLATELET COUNT 208 K/MM3 (134-434); RBC 4.01 M/mm3 (3.60-5.2); RDW 13.8 % (11.6-15.6); WHITE BLOOD COUNT 7.6 K/mm3 (4.0-10.0)
[2017-12-10] MEDS: morphine SULFATE 4 MG/ML VIAL IVPUSH PRN ×2 (10:18→21:30)
--- NOTE | 2017-12-10 11:36 | PN ---
Progress Note, Physician History of Present Illness: continues to improve no complaints - Current Medication List Current Medications: Active Medications Sodium Chloride (Normal Saline -) 1,000 mls @ 75 mls/hr IV ASDIR NICOLE Last Admin: 12/09/17 21:23 Dose: Not Given Piperacillin Sod/Tazobactam (Sod 3.375 gm/ Dextrose) 50 mls @ 100 mls/hr IVPB Q8H-IV NICOLE PRN Reason: Protocol Last Admin: 12/10/17 09:15 Dose: 100 mls/hr Morphine Sulfate (Morphine Sulfate) 2 mg IVPUSH Q3H PRN PRN Reason: PAIN SCALE 6-10 Last Admin: 12/10/17 10:18 Dose: 2 mg - Objective Vital Signs: Vital Signs Temperature 98.0 F 12/10/17 06:00 Pulse Rate 61 12/10/17 10:00 Respiratory Rate 18 12/10/17 10:00 Blood Pressure 142/77 12/10/17 10:00 O2 Sat by Pulse Oximetry (%) 99 12/09/17 22:00 Constitutional: Yes: No Distress, Calm Cardiovascular: Yes: Regular Rate and Rhythm Respiratory: Yes: Regular, CTA Bilaterally Gastrointestinal: Yes: Soft, Hypoactive Bowel Sounds Musculoskeletal: Yes: WNL Extremities: Yes: WNL Neurological: Yes: Alert, Oriented Psychiatric: Yes: Alert, Oriented Labs: CBC, BMP 12/10/17 06:00 12/09/17 07:30 INR, PTT INR 0.99 (0.82-1.09) 12/06/17 12:49 Assessment/Plan Problem List - Problems (1) Diverticulitis Code(s): K57.92 - DVTRCLI OF INTEST, PART UNSP, W/O PERF OR ABSCESS W/O BLEED abd pain plan conitnue abx diet as tolerated wbc has normalized continue monitoring will switch to oral abx tomorrow
--- NOTE | 2017-12-10 14:22 | PN ---
Progress Note, Physician History of Present Illness: not having good bm..nothing today - Current Medication List Current Medications: Active Medications Sodium Chloride (Normal Saline -) 1,000 mls @ 75 mls/hr IV ASDIR NICOLE Last Admin: 12/09/17 21:23 Dose: Not Given Piperacillin Sod/Tazobactam (Sod 3.375 gm/ Dextrose) 50 mls @ 100 mls/hr IVPB Q8H-IV NICOLE PRN Reason: Protocol Last Admin: 12/10/17 09:15 Dose: 100 mls/hr Morphine Sulfate (Morphine Sulfate) 2 mg IVPUSH Q3H PRN PRN Reason: PAIN SCALE 6-10 Last Admin: 12/10/17 10:18 Dose: 2 mg - Objective Vital Signs: Vital Signs Temperature 98.0 F 12/10/17 06:00 Pulse Rate 61 12/10/17 10:00 Respiratory Rate 18 12/10/17 10:00 Blood Pressure 142/77 12/10/17 10:00 O2 Sat by Pulse Oximetry (%) 99 12/09/17 22:00 Constitutional: Yes: No Distress HENT: Yes: Atraumatic Neck: Yes: Supple Cardiovascular: Yes: Regular Rate and Rhythm Respiratory: Yes: CTA Bilaterally Gastrointestinal: Yes: Distention, Hyperactive Bowel Sounds, Tenderness (minimal ) Extremities: Yes: WNL Edema: No Neurological: Yes: Alert, Oriented Labs: CBC, BMP 12/10/17 06:00 12/09/17 07:30 INR, PTT INR 0.99 (0.82-1.09) 12/06/17 12:49 Problem List - Problems (1) Diverticulitis Assessment/Plan: on lactose free diet iv abx prn painmeds Code(s): K57.92 - DVTRCLI OF INTEST, PART UNSP, W/O PERF OR ABSCESS W/O BLEED
--- NOTE | 2017-12-10 14:39 | PN ---
Progress Note, Physician History of Present Illness: No events overnight. +loose stool. Tolerated Chicken and rice last night. - Current Medication List Current Medications: Active Medications Sodium Chloride (Normal Saline -) 1,000 mls @ 75 mls/hr IV ASDIR NICOLE Last Admin: 12/09/17 21:23 Dose: Not Given Piperacillin Sod/Tazobactam (Sod 3.375 gm/ Dextrose) 50 mls @ 100 mls/hr IVPB Q8H-IV NICOLE PRN Reason: Protocol Last Admin: 12/10/17 09:15 Dose: 100 mls/hr Morphine Sulfate (Morphine Sulfate) 2 mg IVPUSH Q3H PRN PRN Reason: PAIN SCALE 6-10 Last Admin: 12/10/17 10:18 Dose: 2 mg - Objective Vital Signs: Vital Signs Temperature 98.0 F 12/10/17 06:00 Pulse Rate 61 12/10/17 10:00 Respiratory Rate 18 12/10/17 10:00 Blood Pressure 142/77 12/10/17 10:00 O2 Sat by Pulse Oximetry (%) 99 12/09/17 22:00 Constitutional: Yes: No Distress, Calm Gastrointestinal: Yes: Normal Bowel Sounds, Soft, Distention. No: Tenderness, Vomiting Labs: CBC, BMP 12/10/17 06:00 12/09/17 07:30 INR, PTT INR 0.99 (0.82-1.09) 12/06/17 12:49 Laboratory Last Values WBC 7.6 K/mm3 (4.0-10.0) 12/10/17 06:00 RBC 4.01 M/mm3 (3.60-5.2) 12/10/17 06:00 Hgb 11.9 GM/dL (10.7-15.3) 12/10/17 06:00 Hct 35.6 % (32.4-45.2) 12/10/17 06:00 MCV 88.6 fl (80-96) 12/10/17 06:00 MCH 29.7 pg (25.7-33.7) 12/10/17 06:00 MCHC 33.5 g/dl (32.0-36.0) 12/10/17 06:00 RDW 13.8 % (11.6-15.6) 12/10/17 06:00 Plt Count 208 K/MM3 (134-434) 12/10/17 06:00 MPV 9.6 fl (7.5-11.1) 12/10/17 06:00 Neutrophils % 62.4 % (42.8-82.8) 12/10/17 06:00 Lymphocytes % 20.6 % (8-40) 12/10/17 06:00 Monocytes % 11.6 % (3.8-10.2) H 12/10/17 06:00 Eosinophils % 4.7 % (0-4.5) H 12/10/17 06:00 Basophils % 0.7 % (0-2.0) 12/10/17 06:00 PT with INR 11.20 SEC (9.7-13.0) 12/06/17 12:49 INR 0.99 (0.82-1.09) 12/06/17 12:49 Sodium 140 mmol/L (136-145) 12/09/17 07:30 Potassium 4.1 mmol/L (3.5-5.1) 12/09/17 07:30 Chloride 106 mmol/L (98-107) 12/09/17 07:30 Carbon Dioxide 28 mmol/L (21-32) 12/09/17 07:30 Anion Gap 6 (8-16) L 12/09/17 07:30 BUN 7 mg/dL (7-18) 12/09/17 07:30 Creatinine 0.5 mg/dL (0.55-1.02) L 12/09/17 07:30 Creat Clearance w eGFR > 60 (>60) 12/07/17 06:30 Random Glucose 88 mg/dL (74-106) 12/09/17 07:30 Calcium 8.4 mg/dL (8.5-10.1) L 12/09/17 07:30 Total Bilirubin 0.7 mg/dL (0.2-1.0) D 12/07/17 06:30 AST 14 U/L (15-37) L 12/07/17 06:30 ALT 23 U/L (12-78) 12/07/17 06:30 Alkaline Phosphatase 116 U/L (45-117) 12/07/17 06:30 C-Reactive Protein 1.8 MG/DL (0.00-0.3) H 12/09/17 07:30 Total Protein 6.8 g/dl (6.4-8.2) 12/07/17 06:30 Albumin 3.4 g/dl (3.4-5.0) 12/07/17 06:30 Lipase 174 U/L (73-393) 12/06/17 12:49 Urine Color Straw 12/06/17 20:30 Urine Appearance Clear 12/06/17 20:30 Urine pH 7.0 (5.0-8.0) 12/06/17 20:30 Ur Specific [place] 1.030 (1.001-1.035) 12/06/17 20:30 Urine Protein Negative (NEGATIVE) 12/06/17 20:30 Urine Glucose (UA) Negative (NEGATIVE) 12/06/17 20:30 Urine Ketones Negative (NEGATIVE) 12/06/17 20:30 Urine Blood Negative (NEGATIVE) 12/06/17 20:30 Urine Nitrite Negative (NEGATIVE) 12/06/17 20:30 Urine Bilirubin Negative (<2.0 mg/dL) 12/06/17 20:30 Urine Urobilinogen Negative mg/dL (0.2-1.0) 12/06/17 20:30 Ur Leukocyte Esterase Trace (NEGATIVE) 12/06/17 20:30 Urine WBC (Auto) 3 /hpf (3-5) 12/06/17 20:30 Urine RBC (Auto) 1 /hpf (0-3) 12/06/17 20:30 Ur Epithelial Cells Rare /HPF (FEW) 12/06/17 20:30 Blood Type B POSITIVE 12/06/17 12:49 Antibody Screen Negative 12/06/17 12:49 Problem List - Problems (1) Diverticulitis Code(s): K57.92 - DVTRCLI OF INTEST, PART UNSP, W/O PERF OR ABSCESS W/O BLEED (2) Diverticulitis large intestine Code(s): K57.32 - DVTRCLI OF LG INT W/O PERFORATION OR ABSCESS W/O BLEEDING Qualifiers: Diverticulitis bleeding: without bleeding Diverticulitis complication: without perforation or abscess Qualified Code(s): K57.32 - Diverticulitis of large intestine without perforation or abscess without bleeding Assessment/Plan Reports improvement. Abdomen distended, but soft. +BMs and tolerating regular diet. Continue current care, ambulate, observe. Complete Abx as per ID. Colonoscopy in 6-8 weeks. Discussed with the patient.
[2017-12-10] MEDS: SODIUM CHLORIDE 1,000 ML IV SCH ×2 (18:10→21:29)
[2017-12-11] MEDS ORDERED: PIPERACILLIN/TAZOBACTAM 3.375 GM VIAL IVPB ONE ×3 (02:31→16:41)
[2017-12-11] MEDS ORDERED: DEXTROSE 5%-WATER - 50 ML IVPB ONE ×3 (02:31→16:41)
[2017-12-11] MEDS: PIPERACILLIN/TAZOB 3.375 GM 3.375 GM in DEXTROSE 5%-WATER - 50 ML IVPB SCH ×3 (02:37→17:03)
[2017-12-11] MEDS: SODIUM CHLORIDE 1,000 ML IV SCH ×3 (06:25→23:00)
[2017-12-11] MEDS: morphine SULFATE 4 MG/ML VIAL IVPUSH PRN ×3 (06:32→21:25)
--- NOTE | 2017-12-11 10:43 | PN ---
GI Progress Note Subjective: GI NOte: Dr. Mcinotsh's coverage is appreciated. Tolerating solids but has become very distended. No vomiting. Has had loose BMs but does not feel as though she is emptying well. - Objective Vital Signs: Vital Signs Temperature 98.1 F 12/11/17 06:00 Pulse Rate 72 12/11/17 06:00 Respiratory Rate 18 12/10/17 23:05 Blood Pressure 149/90 12/11/17 06:00 O2 Sat by Pulse Oximetry (%) 99 12/10/17 21:00 Laboratory Tests 12/08/17 12/09/17 12/10/17 08:25 07:30 06:00 WBC 13.6 H 7.6 C-Reactive Protein 1.8 H Constitutional: Calm Gastrointestinal Inspection: Yes: Distention ...Auscultate: Yes: Normoactive Bowel Sounds ...Palpate: Yes: Soft, Other (nontender) ...Percussion: Yes: Tympanitic Labs: CBC, BMP 12/10/17 06:00 12/09/17 07:30 INR, PTT INR 0.99 (0.82-1.09) 12/06/17 12:49 Problem List - Problems (1) Diverticulitis large intestine Assessment/Plan: Given the distension will get FUA to exclude perforation. Continue antibiotics . Code(s): K57.32 - DVTRCLI OF LG INT W/O PERFORATION OR ABSCESS W/O BLEEDING Qualifiers: Diverticulitis bleeding: without bleeding Diverticulitis complication: without perforation or abscess Qualified Code(s): K57.32 - Diverticulitis of large intestine without perforation or abscess without bleeding
--- NOTE | 2017-12-11 15:32 | PN ---
Progress Note, Physician History of Present Illness: patient was tolerating diet but has become very distended now no flatus according to her abd distended - Current Medication List Current Medications: Active Medications Sodium Chloride (Normal Saline -) 1,000 mls @ 75 mls/hr IV ASDIR NICOLE Last Admin: 12/11/17 06:25 Dose: 75 mls/hr Piperacillin Sod/Tazobactam (Sod 3.375 gm/ Dextrose) 50 mls @ 100 mls/hr IVPB Q8H-IV NICOLE PRN Reason: Protocol Last Admin: 12/11/17 09:03 Dose: 100 mls/hr Morphine Sulfate (Morphine Sulfate) 2 mg IVPUSH Q3H PRN PRN Reason: PAIN SCALE 6-10 Last Admin: 12/11/17 06:32 Dose: 2 mg Polyethylene Glycol (Miralax (For Daily Use) -) 17 gm PO BID NICOLE - Objective Vital Signs: Vital Signs Temperature 98.8 F 12/11/17 14:48 Pulse Rate 62 12/11/17 14:48 Respiratory Rate 18 12/11/17 09:00 Blood Pressure 153/90 12/11/17 14:48 O2 Sat by Pulse Oximetry (%) 99 12/11/17 09:00 Constitutional: Yes: Calm, Mild Distress Cardiovascular: Yes: Regular Rate and Rhythm Respiratory: Yes: Regular, CTA Bilaterally Gastrointestinal: Yes: Soft, Distention, Hypoactive Bowel Sounds Musculoskeletal: Yes: WNL Extremities: Yes: WNL Neurological: Yes: Alert, Oriented Psychiatric: Yes: Alert, Oriented Labs: CBC, BMP 12/10/17 06:00 12/09/17 07:30 INR, PTT INR 0.99 (0.82-1.09) 12/06/17 12:49 Assessment/Plan Problem List - Problems (1) Diverticulitis Code(s): K57.92 - DVTRCLI OF INTEST, PART UNSP, W/O PERF OR ABSCESS W/O BLEED abd pain patient abd distended plan will continue iv untill patient starts passing flatus then switch to oral abx augmentin gi on case repeat xray noted
[2017-12-11] MEDS ORDERED: BISACODYL 10 MG SUPP.RECT RC PRN (19:47)
--- NOTE | 2017-12-11 19:50 | PN ---
Progress Note, Physician History of Present Illness: not having good bm. - Current Medication List Current Medications: Active Medications Bisacodyl (Dulcolax Suppository -) 10 mg RC PRN PRN PRN Reason: CONSTIPATION Sodium Chloride (Normal Saline -) 1,000 mls @ 75 mls/hr IV ASDIR NICOLE Last Admin: 12/11/17 06:25 Dose: 75 mls/hr Piperacillin Sod/Tazobactam (Sod 3.375 gm/ Dextrose) 50 mls @ 100 mls/hr IVPB Q8H-IV NICOLE PRN Reason: Protocol Last Admin: 12/11/17 17:03 Dose: 100 mls/hr Morphine Sulfate (Morphine Sulfate) 2 mg IVPUSH Q3H PRN PRN Reason: PAIN SCALE 6-10 Last Admin: 12/11/17 17:23 Dose: 2 mg Polyethylene Glycol (Miralax (For Daily Use) -) 17 gm PO BID NICOLE - Objective Vital Signs: Vital Signs Temperature 98.8 F 12/11/17 14:48 Pulse Rate 62 12/11/17 14:48 Respiratory Rate 18 12/11/17 09:00 Blood Pressure 153/90 12/11/17 14:48 O2 Sat by Pulse Oximetry (%) 99 12/11/17 09:00 Constitutional: Yes: No Distress HENT: Yes: Atraumatic Neck: Yes: Supple Cardiovascular: Yes: Regular Rate and Rhythm Respiratory: Yes: CTA Bilaterally Gastrointestinal: Yes: Distention, Hyperactive Bowel Sounds Extremities: Yes: WNL Edema: No Peripheral Pulses WNL: Yes Neurological: Yes: Alert, Oriented Labs: CBC, BMP 12/10/17 06:00 12/09/17 07:30 INR, PTT INR 0.99 (0.82-1.09) 12/06/17 12:49 Problem List - Problems (1) Diverticulitis Assessment/Plan: iv abx prn painmeds had fua today will change to clear liquid diet prn dulcolax Code(s): K57.92 - DVTRCLI OF INTEST, PART UNSP, W/O PERF OR ABSCESS W/O BLEED
[2017-12-11] MEDS: POLYETHYLENE GLYCOL 3350 119 GM BTL PO SCH (21:22)
[2017-12-12] MEDS ORDERED: DEXTROSE 5%-WATER - 50 ML IVPB ONE ×3 (00:47→16:53)
[2017-12-12] MEDS ORDERED: PIPERACILLIN/TAZOBACTAM 3.375 GM VIAL IVPB ONE ×3 (00:47→16:53)
[2017-12-12] MEDS: PIPERACILLIN/TAZOB 3.375 GM 3.375 GM in DEXTROSE 5%-WATER - 50 ML IVPB SCH ×3 (01:12→17:33)
[2017-12-12] MEDS: morphine SULFATE 4 MG/ML VIAL IVPUSH PRN ×2 (06:00→22:08)
[2017-12-12 08:16] LABS: EOS % 5.1 % (0-4.5); HEMATOCRIT 37.3 % (32.4-45.2); HEMOGLOBIN 12.7 GM/dL (10.7-15.3); LYMPH % 19.5 % (8-40); MCH 29.8 pg (25.7-33.7); MEAN CELL VOLUME 87.8 fl (80-96); MEAN PLT VOLUME 9.1 fl (7.5-11.1); MONO % 10.7 % (3.8-10.2); NEUT % 63.7 % (42.8-82.8); PLATELET COUNT 225 K/MM3 (134-434); RBC 4.25 M/mm3 (3.60-5.2); WHITE BLOOD COUNT 9.1 K/mm3 (4.0-10.0)
[2017-12-12 08:47] LABS: CHLORIDE 109 mmol/L (98-107); SODIUM 140 mmol/L (136-145)
[2017-12-12] MEDS: POLYETHYLENE GLYCOL 3350 119 GM BTL PO SCH ×2 (09:49→21:15)
[2017-12-12 10:04] LABS: BLOOD UREA NITROGEN 10 mg/dL (7-18); CREATININE 0.6 mg/dL (0.55-1.02); GLUCOSE,RANDOM 97 mg/dL (74-106)
[2017-12-12 10:24] LABS: ANION GAP 5 (8-16); CO2 26 mmol/L (21-32)
--- NOTE | 2017-12-12 14:38 | PN ---
Progress Note, Physician History of Present Illness: stable still with abd distension started on liquid diet no complaints dirrhoea pain much better nearly resolved - Current Medication List Current Medications: Active Medications Bisacodyl (Dulcolax Suppository -) 10 mg RC PRN PRN PRN Reason: CONSTIPATION Sodium Chloride (Normal Saline -) 1,000 mls @ 75 mls/hr IV ASDIR NICOLE Last Admin: 12/11/17 23:00 Dose: 75 mls/hr Piperacillin Sod/Tazobactam (Sod 3.375 gm/ Dextrose) 50 mls @ 100 mls/hr IVPB Q8H-IV NICOLE PRN Reason: Protocol Last Admin: 12/12/17 09:50 Dose: 100 mls/hr Morphine Sulfate (Morphine Sulfate) 2 mg IVPUSH Q3H PRN PRN Reason: PAIN SCALE 6-10 Last Admin: 12/12/17 06:00 Dose: 2 mg Polyethylene Glycol (Miralax (For Daily Use) -) 17 gm PO BID NICOLE Last Admin: 12/12/17 09:49 Dose: 17 gm - Objective Vital Signs: Vital Signs Temperature 97.4 F L 12/12/17 14:00 Pulse Rate 55 L 12/12/17 14:00 Respiratory Rate 17 12/12/17 14:00 Blood Pressure 143/77 12/12/17 14:00 O2 Sat by Pulse Oximetry (%) 99 12/12/17 09:00 Constitutional: Yes: No Distress, Calm Cardiovascular: Yes: Regular Rate and Rhythm Respiratory: Yes: Regular, CTA Bilaterally Gastrointestinal: Yes: Normal Bowel Sounds, Soft, Distention Musculoskeletal: Yes: WNL Extremities: Yes: WNL Neurological: Yes: Alert, Oriented Psychiatric: Yes: Alert, Oriented Labs: CBC, BMP 12/12/17 07:42 12/12/17 07:42 INR, PTT INR 0.99 (0.82-1.09) 12/06/17 12:49 Assessment/Plan Problem List - Problems (1) Diverticulitis Code(s): K57.92 - DVTRCLI OF INTEST, PART UNSP, W/O PERF OR ABSCESS W/O BLEED abd pain patient abd distended plan can switch to oral abx tomorrow if patient continues to tolerate diet augmentin for another 5 days if patient going home tomorrow rest continue current mgmt monitor for abd distension
--- NOTE | 2017-12-12 15:59 | PN ---
Progress Note, Physician History of Present Illness: had 2 bms - Current Medication List Current Medications: Active Medications Bisacodyl (Dulcolax Suppository -) 10 mg RC PRN PRN PRN Reason: CONSTIPATION Sodium Chloride (Normal Saline -) 1,000 mls @ 75 mls/hr IV ASDIR NICOLE Last Admin: 12/11/17 23:00 Dose: 75 mls/hr Piperacillin Sod/Tazobactam (Sod 3.375 gm/ Dextrose) 50 mls @ 100 mls/hr IVPB Q8H-IV NICOLE PRN Reason: Protocol Last Admin: 12/12/17 09:50 Dose: 100 mls/hr Morphine Sulfate (Morphine Sulfate) 2 mg IVPUSH Q3H PRN PRN Reason: PAIN SCALE 6-10 Last Admin: 12/12/17 06:00 Dose: 2 mg Polyethylene Glycol (Miralax (For Daily Use) -) 17 gm PO BID NICOLE Last Admin: 12/12/17 09:49 Dose: 17 gm - Objective Vital Signs: Vital Signs Temperature 97.4 F L 12/12/17 14:00 Pulse Rate 55 L 12/12/17 14:00 Respiratory Rate 17 12/12/17 14:00 Blood Pressure 143/77 12/12/17 14:00 O2 Sat by Pulse Oximetry (%) 99 12/12/17 09:00 Constitutional: Yes: No Distress HENT: Yes: Atraumatic Neck: Yes: Supple Cardiovascular: Yes: Regular Rate and Rhythm Respiratory: Yes: CTA Bilaterally Gastrointestinal: Yes: Normal Bowel Sounds Extremities: Yes: WNL Neurological: Yes: Alert, Oriented Labs: CBC, BMP 12/12/17 07:42 12/12/17 07:42 INR, PTT INR 0.99 (0.82-1.09) 12/06/17 12:49 Problem List - Problems (1) Diverticulitis Assessment/Plan: switch to po abx prn painmeds will change to clear liquid diet prn dulcolax Code(s): K57.92 - DVTRCLI OF INTEST, PART UNSP, W/O PERF OR ABSCESS W/O BLEED
[2017-12-12] MEDS: SODIUM CHLORIDE 1,000 ML IV SCH ×2 (17:33→20:15)
--- NOTE | 2017-12-12 19:33 | PN ---
GI Progress Note Subjective: GI NOte: FUA revealed no obstruction or pneumoperitoneum. Hungry. Less bloated. Having BMs. Pain free. - Objective Vital Signs: Vital Signs Temperature 97.4 F L 12/12/17 14:00 Pulse Rate 55 L 12/12/17 14:00 Respiratory Rate 17 12/12/17 14:00 Blood Pressure 143/77 12/12/17 14:00 O2 Sat by Pulse Oximetry (%) 99 12/12/17 09:00 Laboratory Tests 12/08/17 12/12/17 12/12/17 08:25 07:42 07:42 WBC 9.1 C-Reactive Protein 3.8 H 0.4 H Constitutional: No Distress Gastrointestinal Inspection: Yes: Distention ...Auscultate: Yes: Normoactive Bowel Sounds ...Palpate: Yes: Soft, Other (nontender) ...Percussion: Yes: Tympanitic Labs: CBC, BMP 12/12/17 07:42 12/12/17 07:42 INR, PTT INR 0.99 (0.82-1.09) 12/06/17 12:49 Problem List - Problems (1) Diverticulitis large intestine Assessment/Plan: Resolved diverticulitis. Will restart solids. Advised low fiber x 1 week then reintroduce fiber starting with fruit. Advised to take Miralax BD to kep stools soft and until bloating from retained hard stool resolves. Continue oral antibiotics as outpatient. No GI objections to discharge in AM. Will followup in our office. Code(s): K57.32 - DVTRCLI OF LG INT W/O PERFORATION OR ABSCESS W/O BLEEDING Qualifiers: Diverticulitis bleeding: without bleeding Diverticulitis complication: without perforation or abscess Qualified Code(s): K57.32 - Diverticulitis of large intestine without perforation or abscess without bleeding
[2017-12-13] MEDS ORDERED: AMOX TR/POT CLAV 875MG/125MG TABLETS (FP) PO SCH (08:00)
[2017-12-13 08:33] VITALS: TEMP 97.7
[2017-12-13] MEDS: POLYETHYLENE GLYCOL 3350 119 GM BTL PO SCH (08:53)
[2017-12-13] MEDS: morphine SULFATE 4 MG/ML VIAL IVPUSH PRN (08:54)
--- NOTE | 2017-12-13 10:28 | DS ---
Physical Examination Vital Signs: Vital Signs Temperature 97.7 F 12/13/17 06:00 Pulse Rate 54 L 12/13/17 06:00 Respiratory Rate 18 12/13/17 06:00 Blood Pressure 130/78 12/13/17 06:00 O2 Sat by Pulse Oximetry (%) 99 12/12/17 19:59 Constitutional: Yes: No Distress HENT: Yes: Atraumatic Neck: Yes: Supple Cardiovascular: Yes: Regular Rate and Rhythm Respiratory: Yes: CTA Bilaterally Gastrointestinal: Yes: Normal Bowel Sounds Extremities: Yes: WNL Neurological: Yes: Alert, Oriented Labs: CBC, BMP 12/12/17 07:42 12/12/17 07:42 Discharge Summary Reason For Visit: DIVERTICULITIS Current Active Problems Diverticulitis (Acute) Diverticulitis large intestine (Acute) Condition: Stable - Instructions Diet, Activity, Other Instructions: low fiber diet Referrals: Joaquim Jackson [Primary Care Provider] - Jonas Joyce MD [Staff Physician] - Disposition: HOME - Home Medications Comprehensive Discharge Medication List: Ambulatory Orders Atorvastatin Ca [Lipitor] 10 mg PO HS 12/07/17 Amox-Tr/K Cl [Augmentin 875-125mg Tablet -] 1 tab PO BID@0800,1730 #14 tablet Polyethylene Glycol 3350 [Miralax 119 gm Btl -] 17 gm PO BID #1 bottle 12/12/17
[2017-12-13 11:02] VITALS: BP 146/76; PULSE 68
== END 2017-12-13 11:18 | disposition home or self-care (01) | DRG 392 ==
LOC: JER 12:02 → JERBED 17:17 → J6S 20:57
PROVIDERS: ADMIT Internal Medicine; ATTEND Internal Medicine
DX: K57.32 Diverticulitis of large intestine without perforation or abscess without bleeding (principal); R10.32 Left lower quadrant pain; F17.210 Nicotine dependence, cigarettes, uncomplicated
CPT/HCPCS: 36415; 71045-TC-FY; 74019-TC-FY; 74177-TC; 80048; 80053; 81003; 81015; 83690; 85025; 85610; 86140; 86850; 86900; 86901; 93005; 93010; 99283-25; J7030

== ENCOUNTER 2018-01-29 16:56 | Inpatient (IN) | payer OTHER ==
--- NOTE | 2018-01-29 17:39 | PDOC ---
Rapid Medical Evaluation Time Seen by Provider: 01/29/18 17:38 Medical Evaluation: Allergies Allergy/AdvReac Type Severity Reaction Status Date / Time No Known Allergies Allergy Verified 12/06/17 12:06 01/29/18 17:39 I have performed a brief in-person evaluation of this patient. The patient presents with a chief complaint of: abd pain with diarrhea/nausea, treated for diverticulitis a week ago Pertinent physical exam findings:+ tenderness in lower abd I have ordered the following:labs, saline lock, ua, SL zofran The patient will proceed to the ED for further evaluation. 01/29/18 17:42 Discharge Disposition - Diagnosis Abdominal pain Qualifiers: Abdominal location: generalized Qualified Code(s): R10.84 - Generalized abdominal pain - Referrals - Patient Instructions - Post Discharge Activity
[2018-01-29] MEDS ORDERED: ONDANSETRON *ODT* 4 MG TABLET SL ONE (17:42)
[2018-01-29] MEDS ORDERED: ONDANSETRON 4 MG TABLET PO ONE (17:52)
[2018-01-29 18:22] LABS: HEMATOCRIT 40.3 % (32.4-45.2); HEMOGLOBIN 13.9 GM/dL (10.7-15.3); MCHC 34.5 g/dl (32.0-36.0); MEAN PLT VOLUME 9.3 fl (7.5-11.1); PLATELET COUNT 188 K/MM3 (134-434); RBC 4.63 M/mm3 (3.60-5.2); WHITE BLOOD COUNT 16.8 K/mm3 (4.0-10.0)
--- NOTE | 2018-01-29 19:21 | PDOC ---
History of Present Illness - General Chief Complaint: Pain, Acute Stated Complaint: STOMACH PAIN Time Seen by Provider: 01/29/18 17:38 Past History - Past Medical History Allergies/Adverse Reactions: Allergies Allergy/AdvReac Type Severity Reaction Status Date / Time No Known Allergies Allergy Verified 01/29/18 17:39 Home Medications: Ambulatory Orders Atorvastatin Ca [Lipitor] 10 mg PO HS 12/07/17 Amox-Tr/K Cl [Augmentin 875-125mg Tablet -] 1 tab PO BID@0800,1730 #14 tablet Polyethylene Glycol 3350 [Miralax 119 gm Btl -] 17 gm PO BID #1 bottle 12/12/17 COPD: No GI Disorders: Yes (diverticulitis) Hypercholesterolemia: Yes - Immunization History Immunization Up to Date: Yes - Suicide/Smoking/Psychosocial Hx Smoking History: Current every day smoker Have you smoked in the past 12 months: Yes Number of Cigarettes Smoked Daily: 5 Information on smoking cessation initiated: No 'Breaking Loose' booklet given: 12/06/17 Hx Alcohol Use: No Drug/Substance Use Hx: No Substance Use Type: None Hx Substance Use Treatment: No *Physical Exam - Vital Signs Last Vital Signs Temp Pulse Resp BP Pulse Ox 98.2 F 110 H 19 156/126 99 01/29/18 17:39 01/29/18 17:39 01/29/18 17:39 01/29/18 17:39 01/29/18 17:39 ED Treatment Course - LABORATORY CBC & Chemistry Diagram: 01/29/18 18:10 01/29/18 18:10 - ADDITIONAL ORDERS Additional order review: Laboratory Results 01/29/18 18:10 Sodium Cancelled Potassium Cancelled Chloride Cancelled Carbon Dioxide Cancelled Anion Gap Cancelled BUN Cancelled Creatinine Cancelled Creat Clearance w eGFR Cancelled Random Glucose Cancelled Calcium Cancelled Total Bilirubin Cancelled AST Cancelled ALT Cancelled Alkaline Phosphatase Cancelled Total Protein Cancelled Albumin Cancelled 01/29/18 18:10 RBC 4.63 MCV 87.0 MCHC 34.5 RDW 14.0 MPV 9.3 - Medications Given in the ED: ED Medications Discontinued Medications Generic Name Dose Route Start Last Admin Trade Name Freq PRN Reason Stop Dose Admin Ondansetron HCl 8 mg 01/29/18 17:42 01/29/18 17:54 Zofran Odt - SL 01/29/18 17:43 8 mg ONCE ONE Administration *DC/Admit/Observation/Transfer Diagnosis at time of Disposition: Abdominal pain Qualifiers: Abdominal location: generalized Qualified Code(s): R10.84 - Generalized abdominal pain - Referrals Referrals: Joaquim Jackson [Primary Care Provider] - - Patient Instructions - Post Discharge Activity
--- NOTE | 2018-01-29 19:28 | PDOC ---
History of Present Illness - General Chief Complaint: Pain, Acute Stated Complaint: STOMACH PAIN Time Seen by Provider: 01/29/18 17:38 - History of Present Illness Initial Comments: 62F with history of diverticulitis (multiple episodes treated with PO vanc) and hysterectomy presenting with generalized abdominal pain, nausea, vomiting, and diarrhea that started at 5 days prior approximately two days after completing her PO Vancomycin. Describes the pain as crampy and similar to her C diff symptoms but much worse. She originally had C diff toward the end of November after being treated for diverticulitis but her diarrhea, nausea, and vomiting resolved one day after starting vancomycin and all of her symptoms remained control until the last day of PO vanc treatment one week prior. However, she had sudden onset crampy abdominal pain while on a vacation at the [place] two days later. Patient denies fevers, chills, chest pain, SOB, cough, urinary symptoms, or other issues. Endorses nausea and abdominal distention. Denies pain with urination. Last bowel movement this morning. Pain is worse with inspiration, cough, movement. 01/29/18 19:23 Past History - Past Medical History Allergies/Adverse Reactions: Allergies Allergy/AdvReac Type Severity Reaction Status Date / Time No Known Allergies Allergy Verified 01/29/18 17:39 Home Medications: Ambulatory Orders Atorvastatin Ca [Lipitor] 10 mg PO HS 12/07/17 Amox-Tr/K Cl [Augmentin 875-125mg Tablet -] 1 tab PO BID@0800,1730 #14 tablet Polyethylene Glycol 3350 [Miralax 119 gm Btl -] 17 gm PO BID #1 bottle 12/12/17 COPD: No GI Disorders: Yes (diverticulitis) Hypercholesterolemia: Yes - Immunization History Immunization Up to Date: Yes - Suicide/Smoking/Psychosocial Hx Smoking History: Current every day smoker Have you smoked in the past 12 months: Yes Number of Cigarettes Smoked Daily: 5 Information on smoking cessation initiated: No 'Breaking Loose' booklet given: 12/06/17 Hx Alcohol Use: No Drug/Substance Use Hx: No Substance Use Type: None Hx Substance Use Treatment: No Review of Systems - Review of Systems Constitutional: Yes: Fever, Loss of Appetite, Weakness. No: Chills HEENTM: No: Blurred Vision, Tearing Respiratory: No: Cough, Orthopnea, Shortness of Breath Cardiac (ROS): No: Chest Pain, Edema, Irregular Heart Rate ABD/GI: Yes: Diarrhea, Nausea, Vomiting : No: Dysuria, Discharge, Frequency Musculoskeletal: No: Back Pain Integumentary: No: Flushing, Lesions Neurological: No: Headache *Physical Exam - Vital Signs Last Vital Signs Temp Pulse Resp BP Pulse Ox 98.2 F 110 H 19 156/126 99 01/29/18 17:39 01/29/18 17:39 01/29/18 17:39 01/29/18 17:39 01/29/18 17:39 - Physical Exam General Appearance: Yes: Nourished, Appropriately Dressed. No: Apparent Distress HEENT: positive: EOMI, RAIN, Normal ENT Inspection, Normal Voice Neck: positive: Trachea midline, Normal Thyroid, Supple. negative: Tender, Rigid Respiratory/Chest: positive: Lungs Clear, Normal Breath Sounds. negative: Chest Tender, Respiratory Distress, Accessory Muscle Use Cardiovascular: positive: Regular Rhythm, Regular Rate Gastrointestinal/Abdominal: positive: Normal Bowel Sounds, Tender (mildly diffusely tender but no rebound, guarding, or rigidity), Flat, Soft Lymphatic: negative: Adenopathy, Tenderness Musculoskeletal: positive: Normal Inspection. negative: Decreased Range of Motion Extremity: positive: Normal Capillary Refill, Normal Inspection, Normal Range of Motion. negative: Tender Integumentary: positive: Normal Color, Dry, Warm Neurologic: positive: Fully Oriented, Alert, Normal Mood/Affect, Normal Response , Motor Strength 5/5 ED Treatment Course - LABORATORY CBC & Chemistry Diagram: 01/29/18 18:10 01/29/18 18:10 - ADDITIONAL ORDERS Additional order review: Laboratory Results 01/29/18 18:10 Sodium Cancelled Potassium Cancelled Chloride Cancelled Carbon Dioxide Cancelled Anion Gap Cancelled BUN Cancelled Creatinine Cancelled Creat Clearance w eGFR Cancelled Random Glucose Cancelled Calcium Cancelled Total Bilirubin Cancelled AST Cancelled ALT Cancelled Alkaline Phosphatase Cancelled Total Protein Cancelled Albumin Cancelled 01/29/18 18:10 RBC 4.63 MCV 87.0 MCHC 34.5 RDW 14.0 MPV 9.3 - Medications Given in the ED: ED Medications Discontinued Medications Generic Name Dose Route Start Last Admin Trade Name Freq PRN Reason Stop Dose Admin Ondansetron HCl 8 mg 01/29/18 17:42 01/29/18 17:54 Zoyamile Odt - SL 01/29/18 17:43 8 mg ONCE ONE Administration Medical Decision Making - Medical Decision Making 62 year old with known C diff who is unable to tolerate her home PO vancomycin. Segun culutres and cdiff antigen sent but WBC 16/.8 so will admit the patient. Discussed with Dr. Vega and he agrees that we can defer imaging as VSS and patient is non-toxic appearing. Given Flagyl IV and PO vanc with odansetran + reglan. Patient slightly improvwed but not enough to tllerate PO vanc. Fortunato signed out to [facility] in stable condition. 01/29/18 23:21 *DC/Admit/Observation/Transfer Diagnosis at time of Disposition: Abdominal pain - Referrals - Patient Instructions - Post Discharge Activity
[2018-01-29 19:44] LABS: URINE APPEARANCE SLCLOUDY; URINE BILIRUBIN NEGATIVE (<2.0 mg/dL); URINE COLOR AMBER; URINE GLUCOSE (UA) NEGATIVE (NEGATIVE); URINE KETONE 1+ (NEGATIVE); URINE NITRITE NEGATIVE (NEGATIVE)
[2018-01-29 19:51] LABS: URINE LEUK ESTERASE 1+ (NEGATIVE); URINE PROTEIN 1+ (NEGATIVE)
[2018-01-29 19:54] LABS: EPI CELLS RARE /HPF (FEW); URINE HYALINE CAST 1 /lpf; URINE MUCUS MANY
[2018-01-29] MEDS ORDERED: METOCLOPRAMIDE HCL INJECTION 10 MG/2 ML VIAL IVPUSH ONE (19:58)
[2018-01-29] MEDS ORDERED: ONDANSETRON 4 MG/2 ML VIAL IVPUSH ONE (19:58)
[2018-01-29] MEDS ORDERED: SODIUM CHLORIDE 0.9% 500 ML INFUS.BAG IV ONE (20:11)
[2018-01-29] MEDS ORDERED: METOCLOPRAMIDE HCL INJECTION 10 MG/2 ML VIAL ONE (20:14)
[2018-01-29] MEDS ORDERED: ONDANSETRON 4 MG/2 ML VIAL ONE (20:14)
--- NOTE | 2018-01-29 21:46 | PDOC ---
Attending Attestation - Resident Resident Name: Ban Donato - ED Attending Attestation I have performed the following: I have examined & evaluated the patient, The case was reviewed & discussed with the resident, I agree w/resident's findings & plan, Exceptions are as noted - HPI HPI: 01/29/18 21:45 62 yo female sent in for admission by her family psychologist, Dr. Barajas for C. difficile. She had been having nausea, vomiting, vomiting, diarrhea and abdominal pain 01/29/18 21:47 <BaronMelissa Vandana - Last Filed: 01/29/18 21:47> - HPI HPI: 01/29/18 23:44 The patient is a 62-year-old female with a past medical history of HLD and Diverticulitis presents to the emergency department with abdominal pain. Patient presents with abdominal pain, accompanied with nausea, nonbilious- bloody vomiting, and diarrhea for the past 5 days, states the pain is crampy in character. The patient reports a similar pain in the past and was dx with C- diff a the end of November. Patient reports she was prescribed Vancomycin, with immediate relief of nausea and vomiting. The patient reports the symptoms were managed, until a week prior when she completed the course of Vancomycin. Denies recent trauma or injury. Denies fever, chills, cough or a headache. Denies chest pain or shortness of breath. Denies abdominal pain. Denies constipation. Denies dysuria, hematuria, frequency or urgency to urinate. Denies vertigo or dizziness. Denies numbness, tingling or loss of sensation. Allergies: NKDA Social history: Current everyday smoker. Denies the use of alcohol or recreational drugs. Surgical history: Hysterectomy (RAVI/BSO) PCP: Emre Kruger - Physicial Exam PE: 01/30/18 02:16 GENERAL: Well developed, well nourished. Awake and alert. No acute distress. HEENT: Normocephalic, atraumatic. PERRLA, EOMI. No conjunctival pallor. Sclera are non- icteric. Moist mucous membranes. Oropharynx is clear. NECK: Supple. Full ROM. No JVD. Carotid pulses 2+ and symmetric, without bruits. No thyromegaly. No lymphadenopathy. CARDIOVASCULAR: Regular rate and rhythm. No murmurs, rubs, or gallops. Distal pulses are 2+ and symmetric. PULMONARY: No evidence of respiratory distress. Lungs clear to auscultation bilaterally. No wheezing, rales or rhonchi. ABDOMINAL: (+) LLQ tenderness Soft. Non-distended. No rebound or guarding. No organomegaly. Normoactive bowel sounds. MUSCULOSKELETAL Normal range of motion at all joints. No bony deformities or tenderness. No CVA tenderness. EXTREMITIES: No cyanosis. No clubbing. No edema. No calf tenderness. SKIN: Warm and dry. Normal capillary refill. No rashes. No jaundice. NEUROLOGICAL: Alert, awake, appropriate. Cranial nerves 2-12 intact. No deficits to light touch and temperature in face, upper extremities and lower extremities. No motor deficits in the in face, upper extremities and lower extremities. Normoreflexic in the upper and lower extremities. Normal speech. Toes are down- going bilaterally. Gait is normal without ataxia. PSYCHIATRIC: Cooperative. Good eye contact. Appropriate mood and affect. - Medical Decision Making 01/30/18 02:16 Documentation prepared by Mirta Ferguson, acting as medical physics professor for Melissa Draper MD. <Mirta Ferguson - Last Filed: 01/30/18 02:16>
--- NOTE | 2018-01-29 22:16 | HP ---
Admitting History and Physical - Primary Care Physician PCP: Emre Grande - Admission History of Present Illness: 62F with history of diverticulitis (multiple episodes treated with PO vanc) and hysterectomy presenting with generalized abdominal pain, nausea, vomiting, and diarrhea that started at 5 days prior approximately two days after completing her PO Vancomycin. Describes the pain as crampy and similar to her C diff symptoms but much worse. She originally had C diff toward the end of November after being treated for diverticulitis but her diarrhea, nausea, and vomiting resolved one day after starting vancomycin and all of her symptoms remained control until the last day of PO vanc treatment one week prior. However, she had sudden onset crampy abdominal pain while on a vacation at the [place] two days later. Patient denies fevers, chills, chest pain, SOB, cough, urinary symptoms, or other issues. Endorses nausea and abdominal distention. Denies pain with urination. Last bowel movement this morning. Pain is worse with inspiration, cough, movement. - Past Medical History Cardiovascular: Yes: Hyperlipdemia Gastrointestinal: Yes: Diverticulitis - Past Surgical History Past Surgical History: Yes: Hysterectomy (RAVI/BSO) - Smoking History Smoking history: Current every day smoker Have you smoked in the past 12 months: Yes Aproximately how many cigarettes per day: 5 - Alcohol/Substance Use Hx Alcohol Use: No History of Substance Use: reports: None - Social History ADL: Independent Occupation: Works for [employer] History of Recent Travel: No Home Medications - Allergies Allergies/Adverse Reactions: Allergies Allergy/AdvReac Type Severity Reaction Status Date / Time No Known Allergies Allergy Verified 01/29/18 17:39 - Home Medications Home Medications: Ambulatory Orders Atorvastatin Ca [Lipitor] 10 mg PO HS 12/07/17 Family Disease History - Family Disease History Family Disease History: Other: Father (: 76: CAD/[place]), Mother (: 80: fall with intracranial bleed), Brother (None), Sister (1, alive: healthy), Son ( None), Daughter (None) Physical Examination Vital Signs: Vital Signs Temperature 98.7 F 01/29/18 19:40 Pulse Rate 105 H 01/29/18 19:40 Respiratory Rate 18 01/29/18 19:40 Blood Pressure 149/85 01/29/18 19:40 O2 Sat by Pulse Oximetry (%) 97 01/29/18 19:40 Constitutional: Yes: No Distress HENT: Yes: Atraumatic Cardiovascular: Yes: Regular Rate and Rhythm Respiratory: Yes: CTA Bilaterally Gastrointestinal: Yes: Normal Bowel Sounds Extremities: Yes: WNL Edema: No Peripheral Pulses WNL: Yes Neurological: Yes: Alert Labs: CBC, BMP 01/29/18 18:10 01/29/18 20:08 Problem List - Problems (1) Abdominal pain Assessment/Plan: prn pain meds npo Code(s): R10.9 - UNSPECIFIED ABDOMINAL PAIN Qualifiers: Abdominal location: generalized Qualified Code(s): R10.84 - Generalized abdominal pain (2) Colitis Assessment/Plan: on meds ivf Code(s): K52.9 - NONINFECTIVE GASTROENTERITIS AND COLITIS, UNSPECIFIED (3) Clostridium difficile colitis Assessment/Plan: will start abx per id on po vanco Code(s): A04.72 - ENTEROCOLITIS D/T CLOSTRIDIUM DIFFICILE, NOT SPCF RECUR Assessment/Plan Laboratory Tests 01/29/18 01/29/18 01/29/18 18:10 18:10 18:25 WBC 16.8 H RBC 4.63 Hgb 13.9 Hct 40.3 MCV 87.0 MCH 30.0 MCHC 34.5 RDW 14.0 Plt Count 188 MPV 9.3 Sodium Cancelled Potassium Cancelled Chloride Cancelled Carbon Dioxide Cancelled Anion Gap Cancelled BUN Cancelled Creatinine Cancelled Creat Clearance w eGFR Cancelled Random Glucose Cancelled Lactic Acid Calcium Cancelled Total Bilirubin Cancelled AST Cancelled ALT Cancelled Alkaline Phosphatase Cancelled Total Protein Cancelled Albumin Cancelled Lipase Urine Color Taina Urine Appearance Slcloudy Urine pH 5.0 D Ur Specific [place] 1.026 Urine Protein 1+ H Urine Glucose (UA) Negative Urine Ketones 1+ H Urine Blood 2+ H Urine Nitrite Negative Urine Bilirubin Negative Urine Urobilinogen 2.0 H Ur Leukocyte Esterase 1+ H Urine WBC (Auto) 12 Urine RBC (Auto) 7 Ur Epithelial Cells Rare Hyaline Casts 1 Urine Mucus Many 01/29/18 01/29/18 20:05 20:08 WBC RBC Hgb Hct MCV MCH MCHC RDW Plt Count MPV Sodium Cancelled Potassium Cancelled Chloride Cancelled Carbon Dioxide Cancelled Anion Gap Cancelled BUN Cancelled Creatinine Cancelled Creat Clearance w eGFR Cancelled Random Glucose Cancelled Lactic Acid 0.6 Calcium Cancelled Total Bilirubin Cancelled AST Cancelled ALT Cancelled Alkaline Phosphatase Cancelled Total Protein Cancelled Albumin Cancelled Lipase Cancelled Urine Color Urine Appearance Urine pH Ur Specific [place] Urine Protein Urine Glucose (UA) Urine Ketones Urine Blood Urine Nitrite Urine Bilirubin Urine Urobilinogen Ur Leukocyte Esterase Urine WBC (Auto) Urine RBC (Auto) Ur Epithelial Cells Hyaline Casts Urine Mucus Active Medications Generic Name Dose Route Start Last Admin Trade Name Freq PRN Reason Stop Dose Admin Vancomycin HCl 125 mg 01/30/18 00:00 Vancomycin Oral Solution PO Q6HPO NICOLE
[2018-01-29] MEDS ORDERED: ONDANSETRON 4 MG/2 ML VIAL IVPB PRN (22:18)
[2018-01-29] MEDS ORDERED: VANCOMYCIN 500 MG VIAL (RESTRICTED TO ID ONLY) ONE (22:39)
[2018-01-30] MEDS ORDERED: ACETAMINOPHEN 1000 MG/100 ML VIAL (NON FORMULARY) IVPB ONE (01:09)
[2018-01-30] MEDS ORDERED: ACETAMINOPHEN INJECTION 100 ML IVPB ONE (01:17)
[2018-01-30] MEDS: VANCOMYCIN 250 MG/5 ML ORAL SOLUTION PO SCH ×4 (02:14→19:53)
[2018-01-30 03:59] LABS: ALK PHOS 126 U/L (45-117); ANION GAP 9 (8-16); BILIRUBIN,TOTAL 0.4 mg/dL (0.2-1.0); BLOOD UREA NITROGEN 8 mg/dL (7-18); CALCIUM 7.7 mg/dL (8.5-10.1); CHLORIDE 110 mmol/L (98-107); CO2 22 mmol/L (21-32); CREATININE 0.5 mg/dL (0.55-1.02); GLUCOSE,RANDOM 101 mg/dL (74-106); LIPASE 127 U/L (73-393); POTASSIUM 3.3 mmol/L (3.5-5.1); SGOT/AST 28 U/L (15-37); SGPT/ALT 37 U/L (12-78); SODIUM 141 mmol/L (136-145); TOT PROT 6.2 g/dl (6.4-8.2)
[2018-01-30] MEDS ORDERED: morphine CARPU-JECT 4 MG/1 ML DISP.SYRIN IVPUSH ONE (07:52)
[2018-01-30] MEDS ORDERED: morphine SULFATE 4 MG/ML VIAL ONE (07:56)
[2018-01-30] MEDS ORDERED: SODIUM CHLORIDE 1,000 ML IV SCH (10:00)
--- NOTE | 2018-01-30 10:01 | CONSULT ---
Consult Consult Specialty:: GI Referred by:: Dr Donato Reason for Consultation:: C difficile colitis - History of Present Illness Chief Complaint: Pt seen by me for C difficile colitis last month (documented stool test). Was given Rx for 10 days of p.o. Vancomycin but she only took 5 days of medication, states she "lost" the remaining capsules. She called on to say she had recurrence of copious diarrhea. When she indicated she had not taken the full course of Vancomycin I represcribed Vancomycin 125 mg po qid. Apparently she did not improve and came to E.R. yesterday. I spoke last evening with ER staff and advised resumption of Vanco p.o. as well as administration of metronidazole IV as WBC>15K. History of Present Illness: See chief complaint - History Source History Provided By: Patient - Past Medical History Cardio/Vascular: Yes: Hyperlipdemia Gastrointestinal: Yes: Diverticulitis - Past Surgical History Past Surgical History: Yes: Hysterectomy (RAVI/BSO) - Alcohol/Substance Use Hx Alcohol Use: No History of Substance Use: reports: None - Smoking History Smoking history: Current every day smoker Have you smoked in the past 12 months: Yes Aproximately how many cigarettes per day: 5 - Social History Usual Living Arrangement: With Spouse ADL: Independent Occupation: Works for [employer] History of Recent Travel: No Home Medications - Allergies Allergies/Adverse Reactions: Allergies Allergy/AdvReac Type Severity Reaction Status Date / Time No Known Allergies Allergy Verified 01/29/18 17:39 - Home Medications Home Medications: Ambulatory Orders Atorvastatin Ca [Lipitor] 10 mg PO HS 12/07/17 Family Disease History - Family Disease History Family Disease History: Other: Father (: 76: CAD/[place]), Mother (: 80: fall with intracranial bleed), Brother (None), Sister (1, alive: healthy), Son ( None), Daughter (None) Review of Systems - Review of Systems Constitutional: reports: Loss of Appetite Gastrointestinal: reports: Diarrhea, Indigestion Physical Exam Vital Signs: Vital Signs Temperature 98.8 F 01/30/18 02:12 Pulse Rate 78 01/30/18 07:10 Respiratory Rate 16 01/30/18 07:10 Blood Pressure 130/79 01/30/18 07:10 O2 Sat by Pulse Oximetry (%) 99 07/10/18 07:10 Gastrointestinal: Yes: Tenderness (Now diffusely tender but without rebound. Soft without rigidity.) Labs: CBC, BMP 01/29/18 18:10 01/30/18 03:30 Problem List - Problems (1) Clostridium difficile colitis Code(s): A04.72 - ENTEROCOLITIS D/T CLOSTRIDIUM DIFFICILE, NOT SPCF RECUR Assessment/Plan C difficile colitis, moderately severe. Rx: Vanco po, metronidazole IV. Monitor VS, abdominal exam, CBC. IV hydration. NPO except for meds.
--- NOTE | 2018-01-30 11:00 | CON.GI ---
Consult Consult Specialty:: GI Referred by:: Christiane Reason for Consultation:: C difficile colitis - History of Present Illness History of Present Illness: Pt seen by me in November for diverticulitis, treated with amoxicillin/clavulanic acid successfully. In mid December she developed diarrhea, found to be C. difficile positive. Was given Rx for Vancomycin 125 mg qid x 10 days. She only took about 1/2 the pills as she said she lost some, and as she was feeling better she did not notify me of that fact until 01/26/18 when she called to report recurrence of her diarrhea. At that point I reinitiated the course of Vancomycin, but apparently she worsened over the next couple of days and came to the ER yesterday with diarrhea and nausea. I spoke to ER physician last evening and advised admission as WBC>15K and patient was not better on outpatient treatment ; I advised resumption of Vancomycin 125 mg q6h and IV metronidazole. - History Source History Provided By: Patient Limitations to Obtaining History: No Limitations - Past Medical History Cardio/Vascular: Yes: Hyperlipdemia Gastrointestinal: Yes: Diverticulitis - Past Surgical History Past Surgical History: Yes: Hysterectomy (RAVI/BSO) - Alcohol/Substance Use Hx Alcohol Use: No History of Substance Use: reports: None - Smoking History Smoking history: Current every day smoker Have you smoked in the past 12 months: Yes Aproximately how many cigarettes per day: 5 - Social History Usual Living Arrangement: With Spouse ADL: Independent Occupation: Works for [employer] History of Recent Travel: No Home Medications - Allergies Allergies/Adverse Reactions: Allergies Allergy/AdvReac Type Severity Reaction Status Date / Time No Known Allergies Allergy Verified 01/29/18 17:39 - Home Medications Home Medications: Ambulatory Orders Atorvastatin Ca [Lipitor] 10 mg PO HS 12/07/17 Family Disease History - Family Disease History Family Disease History: Other: Father (: 76: CAD/[place]), Mother (: 80: fall with intracranial bleed), Brother (None), Sister (1, alive: healthy), Son ( None), Daughter (None) Review of Systems - Review of Systems Constitutional: reports: Loss of Appetite Physical Exam-GI Vital Signs: Vital Signs Temperature 98.8 F 01/30/18 02:12 Pulse Rate 78 01/30/18 07:10 Respiratory Rate 16 01/30/18 07:10 Blood Pressure 130/79 01/30/18 07:10 O2 Sat by Pulse Oximetry (%) 99 01/30/18 07:10 ...Auscultate: Yes: Normoactive Bowel Sounds ...Palpate: Yes: Tenderness (Soft but diffusely tender without rebound and without guarding.) Labs: CBC, BMP 01/29/18 18:10 01/30/18 03:30 Problem List - Problems (1) Clostridium difficile colitis Assessment/Plan: As above, treat with po Vancomycin, IV metronidazole. Monitor abdominal exam, WBC. IV hydration. Code(s): A04.72 - ENTEROCOLITIS D/T CLOSTRIDIUM DIFFICILE, NOT SPCF RECUR
--- NOTE | 2018-01-30 12:02 | EKG ---
Test Reason : Blood Pressure : / mmHG Vent. Rate : 091 BPM Atrial Rate : 091 BPM P-R Int : 180 ms QRS Dur : 082 ms QT Int : 400 ms P-R-T Axes : 059 038 043 degrees QTc Int : 492 ms NORMAL SINUS RHYTHM POSSIBLE LEFT ATRIAL ENLARGEMENT PROLONGED QT ABNORMAL ECG Confirmed by MD LORIN, SADIQ ([id number]) on 01/30/2018 12:01:41 PM Referred By: Confirmed By:SADIQ PADGETT MD
[2018-01-30 12:17] LABS: BASO % 0.3 % (0-2.0); EOS % 1.5 % (0-4.5); HEMATOCRIT 36.3 % (32.4-45.2); LYMPH % 7.7 % (8-40); MCH 29.5 pg (25.7-33.7); MCHC 33.1 g/dl (32.0-36.0); MEAN PLT VOLUME 8.8 fl (7.5-11.1); MONO % 10.2 % (3.8-10.2); NEUT % 80.3 % (42.8-82.8); PLATELET COUNT 146 K/MM3 (134-434); RBC 4.08 M/mm3 (3.60-5.2); RDW 14.5 % (11.6-15.6); WHITE BLOOD COUNT 11.9 K/mm3 (4.0-10.0)
--- NOTE | 2018-01-30 14:21 | CON.ID ---
Consult Consult Specialty:: infectious diseases Reason for Consultation:: cdiff colitis - History of Present Illness History of Present Illness: 62F with history of diverticulitis x2, and hysterectomy here today complaining of abdominal pain associated wiht nausea vomiting and dirrhoea which started about 5 days back. looked up the gi note and according to gi patient is a non compliant patient who did not complete the course of abx She only took about 1/2 the pills as she said she lost some, and as she was feeling better Then on 01/26/18 she had recurrence of her diarrhea and she went to her gi doctor and was restarted on oral vanco Patient did not feel much better and came to the hospital and on workup was found to have leukocytosis patient was started on oral vanco and flagyl today her wbc has decreased - History Source History Provided By: Patient Limitations to Obtaining History: No Limitations - Past Medical History Cardio/Vascular: Yes: Hyperlipdemia Gastrointestinal: Yes: Diverticulitis - Past Surgical History Past Surgical History: Yes: Hysterectomy (RAVI/BSO) - Alcohol/Substance Use Hx Alcohol Use: No History of Substance Use: reports: None - Smoking History Smoking history: Current every day smoker Have you smoked in the past 12 months: Yes Aproximately how many cigarettes per day: 5 - Social History Usual Living Arrangement: With Spouse ADL: Independent Occupation: Works for [employer] History of Recent Travel: No Home Medications - Allergies Allergies/Adverse Reactions: Allergies Allergy/AdvReac Type Severity Reaction Status Date / Time No Known Allergies Allergy Verified 01/29/18 17:39 - Home Medications Home Medications: Ambulatory Orders Atorvastatin Ca [Lipitor] 10 mg PO HS 12/07/17 Family Disease History - Family Disease History Family Disease History: Other: Father (: 76: CAD/[place]), Mother (: 80: fall with intracranial bleed), Brother (None), Sister (1, alive: healthy), Son ( None), Daughter (None) Review of Systems - Review of Systems Constitutional: reports: No Symptoms Eyes: reports: No Symptoms HENT: reports: No Symptoms Neck: reports: No Symptoms Cardiovascular: reports: No Symptoms Respiratory: reports: No Symptoms Gastrointestinal: reports: Abdominal Pain, Bloating, Diarrhea Genitourinary: reports: No Symptoms Musculoskeletal: reports: No Symptoms Integumentary: reports: No Symptoms Neurological: reports: No Symptoms Endocrine: reports: No Symptoms Hematology/Lymphatic: reports: No Symptoms Psychiatric: reports: No Symptoms Physical Exam Vital Signs: Vital Signs Temperature 98.5 F 01/30/18 14:06 Pulse Rate 85 01/30/18 14:06 Respiratory Rate 20 01/30/18 14:06 Blood Pressure 142/86 01/30/18 14:06 O2 Sat by Pulse Oximetry (%) 98 01/30/18 14:06 Constitutional: Yes: Calm, Mild Distress Neck: Yes: Supple Cardiovascular: Yes: Regular Rate and Rhythm Respiratory: Yes: Regular, CTA Bilaterally Gastrointestinal: Yes: Distention, Hypoactive Bowel Sounds, Tenderness Musculoskeletal: Yes: WNL Extremities: Yes: WNL Neurological: Yes: Alert, Oriented Psychiatric: Yes: Alert, Oriented Labs: CBC, BMP 01/30/18 12:00 01/30/18 03:30 Assessment/Plan Problem List - Problems (1) Abdominal pain Code(s): R10.9 - UNSPECIFIED ABDOMINAL PAIN Qualifiers: Abdominal location: generalized Qualified Code(s): R10.84 - Generalized abdominal pain (2) Colitis Code(s): K52.9 - NONINFECTIVE GASTROENTERITIS AND COLITIS, UNSPECIFIED (3) Clostridium difficile colitis Code(s): A04.72 - ENTEROCOLITIS D/T CLOSTRIDIUM DIFFICILE, NOT SPCF RECUR plan iv fluids continue po vanco and flagyl ctscan of the abd monitor wbc rest as per the team gi on boards
[2018-01-30 14:43] VITALS: BMI 21.7
--- NOTE | 2018-01-30 15:24 | PN ---
Progress Note, Physician History of Present Illness: feeling better - Current Medication List Current Medications: Active Medications Sodium Chloride (Normal Saline -) 1,000 mls @ 125 mls/hr IV ASDIR [facility] Last Admin: 01/30/18 10:20 Dose: 125 mls/hr Ondansetron HCl (Zofran Injection) 4 mg IVPB Q4H PRN PRN Reason: NAUSEA AND/OR VOMITING Vancomycin HCl (Vancomycin Oral Solution) 125 mg PO Q6HPO [facility] Last Admin: 01/30/18 12:07 Dose: 125 mg - Objective Vital Signs: Vital Signs Temperature 98.8 F 01/30/18 14:35 Pulse Rate 97 H 01/30/18 14:35 Respiratory Rate 18 01/30/18 14:35 Blood Pressure 117/81 01/30/18 14:35 O2 Sat by Pulse Oximetry (%) 98 01/30/18 14:43 Constitutional: Yes: No Distress HENT: Yes: Atraumatic Neck: Yes: Supple Cardiovascular: Yes: Regular Rate and Rhythm Respiratory: Yes: CTA Bilaterally Gastrointestinal: Yes: Normal Bowel Sounds Extremities: Yes: WNL Labs: CBC, BMP 01/30/18 12:00 01/30/18 03:30 Problem List - Problems (1) Abdominal pain Assessment/Plan: improving Code(s): R10.9 - UNSPECIFIED ABDOMINAL PAIN Qualifiers: Abdominal location: generalized Qualified Code(s): R10.84 - Generalized abdominal pain (2) Colitis Code(s): K52.9 - NONINFECTIVE GASTROENTERITIS AND COLITIS, UNSPECIFIED (3) Clostridium difficile colitis Assessment/Plan: will start abx per id on po vanco Code(s): A04.72 - ENTEROCOLITIS D/T CLOSTRIDIUM DIFFICILE, NOT SPCF RECUR
[2018-01-30] MEDS: MORPHINE SULFATE 2 MG/ML VIAL IVPUSH PRN ×2 (16:14→21:54)
--- NOTE | 2018-01-30 18:11 | PN ---
GI Progress Note Subjective: GI Addendum: Very distended. nauseated after liquids. Had not had a solid BM since her November hospitalization for diverticulitis. - Objective Vital Signs: Vital Signs Temperature 98.5 F 01/30/18 16:15 Pulse Rate 89 01/30/18 16:15 Respiratory Rate 18 01/30/18 16:15 Blood Pressure 137/72 01/30/18 16:15 O2 Sat by Pulse Oximetry (%) 98 01/30/18 14:43 Constitutional: Calm Gastrointestinal Inspection: Yes: Distention ...Auscultate: Yes: Hyperactive Bowel Sounds, Other (high pitched) ...Palpate: Yes: Soft, Other (nontender) ...Percussion: Yes: Tympanitic Labs: CBC, BMP 01/30/18 12:00 01/30/18 03:30 Problem List - Problems (1) Distended abdomen Assessment/Plan: Suspect partial bowel obstruction due to a sigmoid diverticular stricture. Will order CT and keep NPO until get results Code(s): R14.0 - ABDOMINAL DISTENSION (GASEOUS) (2) Altered bowel function Code(s): R19.8 - OTH SYMPTOMS AND SIGNS INVOLVING THE DGSTV SYS AND ABDOMEN (3) Clostridium difficile colitis Code(s): A04.72 - ENTEROCOLITIS D/T CLOSTRIDIUM DIFFICILE, NOT SPCF RECUR (4) Diverticulitis Code(s): K57.92 - DVTRCLI OF INTEST, PART UNSP, W/O PERF OR ABSCESS W/O BLEED
[2018-01-30] MEDS: D5-1/2NS+10 MEQ KCL - 10 MEQ/1,000 ML INFUS.BAG IV SCH (18:17)
[2018-01-31] MEDS: VANCOMYCIN 250 MG/5 ML ORAL SOLUTION PO SCH ×4 (00:03→17:59)
[2018-01-31] MEDS: MORPHINE SULFATE 2 MG/ML VIAL IVPUSH PRN ×4 (02:09→21:07)
[2018-01-31] MEDS: D5-1/2NS+10 MEQ KCL - 10 MEQ/1,000 ML INFUS.BAG IV SCH ×2 (04:04→16:41)
[2018-01-31 08:29] LABS: BASO % 0.3 % (0-2.0); EOS % 1.6 % (0-4.5); HEMATOCRIT 34.4 % (32.4-45.2); HEMOGLOBIN 11.6 GM/dL (10.7-15.3); LYMPH % 8.9 % (8-40); MCHC 33.8 g/dl (32.0-36.0); MEAN CELL VOLUME 88.7 fl (80-96); MEAN PLT VOLUME 9.2 fl (7.5-11.1); MONO % 12.5 % (3.8-10.2); NEUT % 76.7 % (42.8-82.8); PLATELET COUNT 135 K/MM3 (134-434); RBC 3.88 M/mm3 (3.60-5.2); RDW 14.4 % (11.6-15.6); WHITE BLOOD COUNT 11.7 K/mm3 (4.0-10.0)
[2018-01-31 09:42] LABS: ANION GAP 8 (8-16); CHLORIDE 106 mmol/L (98-107); CO2 25 mmol/L (21-32); CREATININE 0.4 mg/dL (0.55-1.02); GLUCOSE,RANDOM 102 mg/dL (74-106); POTASSIUM 3.3 mmol/L (3.5-5.1); SODIUM 139 mmol/L (136-145)
[2018-01-31 10:02] LABS: BLOOD UREA NITROGEN 2 mg/dL (7-18)
--- NOTE | 2018-01-31 11:13 | PN ---
Progress Note, Physician History of Present Illness: patient feeling slightly better still with abd distension dirrhoea imaging studies noted leukocytosis resolving - Current Medication List Current Medications: Active Medications Potassium Chloride/Dextrose/Sod Cl (D5-1/2ns+10 Meq Kcl -) 10 meq in 1,000 mls @ 125 mls/hr IV [facility]IR [facility] Last Admin: 01/31/18 04:04 Dose: 125 mls/hr Morphine Sulfate (Morphine Sulfate) 2 mg IVPUSH Q4H PRN PRN Reason: PAIN LEVEL 4 - 6 Last Admin: 01/31/18 08:50 Dose: 2 mg Ondansetron HCl (Zofran Injection) 4 mg IVPB Q4H PRN PRN Reason: NAUSEA AND/OR VOMITING Vancomycin HCl (Vancomycin Oral Solution) 125 mg PO Q6HPO [facility] Last Admin: 01/31/18 05:54 Dose: 125 mg - Objective Vital Signs: Vital Signs Temperature 98.2 F 01/31/18 06:36 Pulse Rate 80 01/31/18 06:36 Respiratory Rate 20 01/31/18 06:36 Blood Pressure 147/72 01/31/18 06:36 O2 Sat by Pulse Oximetry (%) 98 01/30/18 21:00 Constitutional: Yes: Calm, Mild Distress Cardiovascular: Yes: Regular Rate and Rhythm Respiratory: Yes: Regular, CTA Bilaterally Gastrointestinal: Yes: Soft, Hypoactive Bowel Sounds Musculoskeletal: Yes: WNL Extremities: Yes: WNL Neurological: Yes: Alert, Oriented Psychiatric: Yes: Alert, Oriented Labs: CBC, BMP 01/31/18 06:30 01/31/18 06:00 - ....Imaging X-ray: Report Reviewed, Image Reviewed Cat Scan: Report Reviewed, Image Reviewed Assessment/Plan Problem List - Problems (1) Abdominal pain Code(s): R10.9 - UNSPECIFIED ABDOMINAL PAIN Qualifiers: Abdominal location: generalized Qualified Code(s): R10.84 - Generalized abdominal pain (2) Colitis Code(s): K52.9 - NONINFECTIVE GASTROENTERITIS AND COLITIS, UNSPECIFIED (3) Clostridium difficile colitis Code(s): A04.72 - ENTEROCOLITIS D/T CLOSTRIDIUM DIFFICILE, NOT SPCF RECUR plan iv fluids continue po vanco and flagyl monitor wbc rest as per the team gi on board
--- NOTE | 2018-01-31 12:03 | PN ---
GI Progress Note Subjective: GI NOte: No significant stricture or obstruction on CT but has pancolitis. C diff negative but recent history implicates it so will continue Vancomycin and Flagyl. Still having diarrhea but some may be attributable to the CT contrast. Has mild crampy pains. - Objective Vital Signs: Vital Signs Temperature 98.2 F 01/31/18 06:36 Pulse Rate 80 01/31/18 06:36 Respiratory Rate 20 01/31/18 06:36 Blood Pressure 147/72 01/31/18 06:36 O2 Sat by Pulse Oximetry (%) 98 01/30/18 21:00 CBC,CMP WBC 11.7 K/mm3 (4.0-10.0) H 01/31/18 06:30 RBC 3.88 M/mm3 (3.60-5.2) 01/31/18 06:30 Hgb 11.6 GM/dL (10.7-15.3) 01/31/18 06:30 Hct 34.4 % (32.4-45.2) 01/31/18 06:30 MCV 88.7 fl (80-96) 01/31/18 06:30 MCH 30.0 pg (25.7-33.7) 01/31/18 06:30 MCHC 33.8 g/dl (32.0-36.0) 01/31/18 06:30 RDW 14.4 % (11.6-15.6) 01/31/18 06:30 Plt Count 135 K/MM3 (134-434) 01/31/18 06:30 MPV 9.2 fl (7.5-11.1) 01/31/18 06:30 Absolute Neuts (auto) 9.0 # 01/31/18 06:30 Neutrophils % 76.7 % (42.8-82.8) 01/31/18 06:30 Lymphocytes % 8.9 % (8-40) 01/31/18 06:30 Monocytes % 12.5 % (3.8-10.2) H 01/31/18 06:30 Eosinophils % 1.6 % (0-4.5) 01/31/18 06:30 Basophils % 0.3 % (0-2.0) 01/31/18 06:30 Nucleated RBC % 0 % (0-0) 01/31/18 06:30 Sodium 139 mmol/L (136-145) 01/31/18 06:00 Potassium 3.3 mmol/L (3.5-5.1) L 01/31/18 06:00 Chloride 106 mmol/L (98-107) 01/31/18 06:00 Carbon Dioxide 25 mmol/L (21-32) 01/31/18 06:00 Anion Gap 8 (8-16) 01/31/18 06:00 BUN 2 mg/dL (7-18) L* 01/31/18 06:00 Creatinine 0.4 mg/dL (0.55-1.02) L 01/31/18 06:00 Creat Clearance w eGFR > 60 (>60) 01/31/18 06:00 Random Glucose 102 mg/dL (74-106) 01/31/18 06:00 Lactic Acid 0.6 mmol/L (0.0-2.0) 01/29/18 20:05 Calcium 8.0 mg/dL (8.5-10.1) L 01/31/18 06:00 Total Bilirubin 0.4 mg/dL (0.2-1.0) 01/30/18 03:30 AST 28 U/L (15-37) 01/30/18 03:30 ALT 37 U/L (12-78) 01/30/18 03:30 Alkaline Phosphatase 126 U/L (45-117) H 01/30/18 03:30 C-Reactive Protein 13.5 MG/DL (0.00-0.3) H 01/31/18 06:00 Total Protein 6.2 g/dl (6.4-8.2) L 01/30/18 03:30 Albumin 3.0 g/dl (3.4-5.0) L 01/30/18 03:30 Lipase 127 U/L (73-393) 01/30/18 03:30 Constitutional: Calm Gastrointestinal Inspection: Yes: Distention ...Auscultate: Yes: Hyperactive Bowel Sounds ...Palpate: Yes: Soft, Other (midl diffuse tenderness but no peritoneal signs) ...Percussion: Yes: Tympanitic Labs: CBC, BMP 01/31/18 06:30 01/31/18 06:00 Problem List - Problems (1) Distended abdomen Code(s): R14.0 - ABDOMINAL DISTENSION (GASEOUS) (2) Altered bowel function Code(s): R19.8 - OTH SYMPTOMS AND SIGNS INVOLVING THE DGSTV SYS AND ABDOMEN (3) Clostridium difficile colitis Assessment/Plan: Will continue course of therapy for colitis with Vanco and Flagyl but will start diet Code(s): A04.72 - ENTEROCOLITIS D/T CLOSTRIDIUM DIFFICILE, NOT SPCF RECUR (4) Diverticulitis Code(s): K57.92 - DVTRCLI OF INTEST, PART UNSP, W/O PERF OR ABSCESS W/O BLEED
[2018-01-31] MEDS: metroNIDAZOLE 250 MG TABLET PO SCH ×3 (12:34→21:07)
--- NOTE | 2018-01-31 15:47 | PN ---
Progress Note, Physician History of Present Illness: feeling better - Current Medication List Current Medications: Active Medications Potassium Chloride/Dextrose/Sod Cl (D5-1/2ns+10 Meq Kcl -) 10 meq in 1,000 mls @ 125 mls/hr IV ASDIR [facility] Last Admin: 01/31/18 04:04 Dose: 125 mls/hr Metronidazole (Flagyl -) 500 mg PO TID [facility] Last Admin: 01/31/18 14:37 Dose: Not Given Morphine Sulfate (Morphine Sulfate) 2 mg IVPUSH Q4H PRN PRN Reason: PAIN LEVEL 4 - 6 Last Admin: 01/31/18 08:50 Dose: 2 mg Ondansetron HCl (Zofran Injection) 4 mg IVPB Q4H PRN PRN Reason: NAUSEA AND/OR VOMITING Vancomycin HCl (Vancomycin Oral Solution) 125 mg PO Q6HPO [facility] Last Admin: 01/31/18 12:34 Dose: 125 mg - Objective Vital Signs: Vital Signs Temperature 97.6 F 01/31/18 15:05 Pulse Rate 86 01/31/18 15:05 Respiratory Rate 20 01/31/18 15:05 Blood Pressure 152/88 01/31/18 15:05 O2 Sat by Pulse Oximetry (%) 96 01/31/18 09:00 Constitutional: Yes: No Distress HENT: Yes: Atraumatic Neck: Yes: Supple Cardiovascular: Yes: Regular Rate and Rhythm Respiratory: Yes: CTA Bilaterally Gastrointestinal: Yes: Normal Bowel Sounds Extremities: Yes: WNL Neurological: Yes: Alert, Oriented Labs: CBC, BMP 01/31/18 06:30 01/31/18 06:00 Problem List - Problems (1) Abdominal pain Assessment/Plan: improving tolerating diet some pain Code(s): R10.9 - UNSPECIFIED ABDOMINAL PAIN Qualifiers: Abdominal location: generalized Qualified Code(s): R10.84 - Generalized abdominal pain (2) Colitis Code(s): K52.9 - NONINFECTIVE GASTROENTERITIS AND COLITIS, UNSPECIFIED (3) Clostridium difficile colitis Assessment/Plan: on abx per id on po vanco Code(s): A04.72 - ENTEROCOLITIS D/T CLOSTRIDIUM DIFFICILE, NOT SPCF RECUR
[2018-02-01] MEDS: VANCOMYCIN 250 MG/5 ML ORAL SOLUTION PO SCH ×4 (00:23→18:24)
[2018-02-01] MEDS: MORPHINE SULFATE 2 MG/ML VIAL IVPUSH PRN ×4 (01:22→20:15)
[2018-02-01] MEDS: D5-1/2NS+10 MEQ KCL - 10 MEQ/1,000 ML INFUS.BAG IV SCH ×2 (02:05→18:21)
[2018-02-01] MEDS: metroNIDAZOLE 250 MG TABLET PO SCH ×3 (05:26→21:02)
--- NOTE | 2018-02-01 09:09 | PN ---
Progress Note, Physician - Current Medication List Current Medications: Active Medications Potassium Chloride/Dextrose/Sod Cl (D5-1/2ns+10 Meq Kcl -) 10 meq in 1,000 mls @ 125 mls/hr IV ASDIR [facility] Last Admin: 02/01/18 02:05 Dose: 125 mls/hr Metronidazole (Flagyl -) 500 mg PO TID [facility] Last Admin: 02/01/18 05:26 Dose: 500 mg Morphine Sulfate (Morphine Sulfate) 2 mg IVPUSH Q4H PRN PRN Reason: PAIN LEVEL 4 - 6 Last Admin: 02/01/18 01:22 Dose: 2 mg Ondansetron HCl (Zofran Injection) 4 mg IVPB Q4H PRN PRN Reason: NAUSEA AND/OR VOMITING Vancomycin HCl (Vancomycin Oral Solution) 125 mg PO Q6HPO [facility] Last Admin: 02/01/18 05:26 Dose: 125 mg - Objective Vital Signs: Vital Signs Temperature 97.4 F L 02/01/18 06:13 Pulse Rate 74 02/01/18 06:13 Respiratory Rate 20 02/01/18 06:13 Blood Pressure 129/82 02/01/18 06:13 O2 Sat by Pulse Oximetry (%) 96 01/31/18 20:28 Labs: CBC, BMP 01/31/18 06:30 01/31/18 06:00
--- NOTE | 2018-02-01 17:29 | PN ---
Progress Note, Physician History of Present Illness: eating better less pain in belly had a bm - Current Medication List Current Medications: Active Medications Potassium Chloride/Dextrose/Sod Cl (D5-1/2ns+10 Meq Kcl -) 10 meq in 1,000 mls @ 125 mls/hr IV ASDIR [facility] Last Admin: 02/01/18 02:05 Dose: 125 mls/hr Metronidazole (Flagyl -) 500 mg PO TID [facility] Last Admin: 02/01/18 14:49 Dose: 500 mg Morphine Sulfate (Morphine Sulfate) 2 mg IVPUSH Q4H PRN PRN Reason: PAIN LEVEL 4 - 6 Last Admin: 02/01/18 14:49 Dose: 2 mg Ondansetron HCl (Zofran Injection) 4 mg IVPB Q4H PRN PRN Reason: NAUSEA AND/OR VOMITING Vancomycin HCl (Vancomycin Oral Solution) 125 mg PO Q6HPO [facility] Last Admin: 02/01/18 12:47 Dose: 125 mg - Objective Vital Signs: Vital Signs Temperature 97.7 F 02/01/18 15:08 Pulse Rate 73 02/01/18 15:08 Respiratory Rate 18 02/01/18 15:08 Blood Pressure 150/67 02/01/18 15:08 O2 Sat by Pulse Oximetry (%) 97 02/01/18 09:00 Constitutional: Yes: No Distress HENT: Yes: Atraumatic Neck: Yes: Supple Cardiovascular: Yes: Regular Rate and Rhythm Respiratory: Yes: CTA Bilaterally Gastrointestinal: Yes: Normal Bowel Sounds, Distention (mild) Extremities: Yes: WNL Neurological: Yes: Alert, Oriented Labs: CBC, BMP 01/31/18 06:30 01/31/18 06:00 Problem List - Problems (1) Abdominal pain Assessment/Plan: prn pain meds on low residue diet Code(s): R10.9 - UNSPECIFIED ABDOMINAL PAIN Qualifiers: Abdominal location: generalized Qualified Code(s): R10.84 - Generalized abdominal pain (2) Colitis Assessment/Plan: on po abx gi on board Code(s): K52.9 - NONINFECTIVE GASTROENTERITIS AND COLITIS, UNSPECIFIED (3) Clostridium difficile colitis Assessment/Plan: on abx per id Code(s): A04.72 - ENTEROCOLITIS D/T CLOSTRIDIUM DIFFICILE, NOT SPCF RECUR
--- NOTE | 2018-02-01 22:38 | PN ---
GI Progress Note Subjective: GI NOte: Remains distended and reluctant to eat as this precipitates diarrhea. Had 9 BMs today. Continues to require IV fluids. Despite negative C diff assays continue to believe that she had C diff colitis which has caused current loss of colon tone and mucosal integrity. - Objective Vital Signs: Vital Signs Temperature 98.7 F 02/01/18 19:36 Pulse Rate 73 02/01/18 19:36 Respiratory Rate 18 02/01/18 19:36 Blood Pressure 145/72 02/01/18 19:36 O2 Sat by Pulse Oximetry (%) 97 02/01/18 09:00 CBC,CMP WBC 11.7 K/mm3 (4.0-10.0) H 01/31/18 06:30 RBC 3.88 M/mm3 (3.60-5.2) 01/31/18 06:30 Hgb 11.6 GM/dL (10.7-15.3) 01/31/18 06:30 Hct 34.4 % (32.4-45.2) 01/31/18 06:30 MCV 88.7 fl (80-96) 01/31/18 06:30 MCH 30.0 pg (25.7-33.7) 01/31/18 06:30 MCHC 33.8 g/dl (32.0-36.0) 01/31/18 06:30 RDW 14.4 % (11.6-15.6) 01/31/18 06:30 Plt Count 135 K/MM3 (134-434) 01/31/18 06:30 MPV 9.2 fl (7.5-11.1) 01/31/18 06:30 Absolute Neuts (auto) 9.0 # 01/31/18 06:30 Neutrophils % 76.7 % (42.8-82.8) 01/31/18 06:30 Lymphocytes % 8.9 % (8-40) 01/31/18 06:30 Monocytes % 12.5 % (3.8-10.2) H 01/31/18 06:30 Eosinophils % 1.6 % (0-4.5) 01/31/18 06:30 Basophils % 0.3 % (0-2.0) 01/31/18 06:30 Nucleated RBC % 0 % (0-0) 01/31/18 06:30 Sodium 139 mmol/L (136-145) 01/31/18 06:00 Potassium 3.3 mmol/L (3.5-5.1) L 01/31/18 06:00 Chloride 106 mmol/L (98-107) 01/31/18 06:00 Carbon Dioxide 25 mmol/L (21-32) 01/31/18 06:00 Anion Gap 8 (8-16) 01/31/18 06:00 BUN 2 mg/dL (7-18) L* 01/31/18 06:00 Creatinine 0.4 mg/dL (0.55-1.02) L 01/31/18 06:00 Creat Clearance w eGFR > 60 (>60) 01/31/18 06:00 Random Glucose 102 mg/dL (74-106) 01/31/18 06:00 Lactic Acid 0.6 mmol/L (0.0-2.0) 01/29/18 20:05 Calcium 8.0 mg/dL (8.5-10.1) L 01/31/18 06:00 Total Bilirubin 0.4 mg/dL (0.2-1.0) 01/30/18 03:30 AST 28 U/L (15-37) 01/30/18 03:30 ALT 37 U/L (12-78) 01/30/18 03:30 Alkaline Phosphatase 126 U/L (45-117) H 01/30/18 03:30 C-Reactive Protein 13.5 MG/DL (0.00-0.3) H 01/31/18 06:00 Total Protein 6.2 g/dl (6.4-8.2) L 01/30/18 03:30 Albumin 3.0 g/dl (3.4-5.0) L 01/30/18 03:30 Lipase 127 U/L (73-393) 01/30/18 03:30 Constitutional: Anxious Gastrointestinal Inspection: Yes: Distention ...Auscultate: Yes: Hyperactive Bowel Sounds ...Palpate: Yes: Soft, Other (nontender) Labs: CBC, BMP 01/31/18 06:30 01/31/18 06:00 Problem List - Problems (1) Distended abdomen Assessment/Plan: Resolving C diff colitis with resultanat ileus. Unable to eat adequately enough to sustain herself and requires continued IV fluids and observation. Will repeat FUA in AM. Code(s): R14.0 - ABDOMINAL DISTENSION (GASEOUS) (2) Altered bowel function Code(s): R19.8 - OTH SYMPTOMS AND SIGNS INVOLVING THE DGSTV SYS AND ABDOMEN (3) Clostridium difficile colitis Code(s): A04.72 - ENTEROCOLITIS D/T CLOSTRIDIUM DIFFICILE, NOT SPCF RECUR (4) Diverticulitis Code(s): K57.92 - DVTRCLI OF INTEST, PART UNSP, W/O PERF OR ABSCESS W/O BLEED
[2018-02-02] MEDS: MORPHINE SULFATE 2 MG/ML VIAL IVPUSH PRN ×3 (00:29→18:52)
[2018-02-02] MEDS: VANCOMYCIN 250 MG/5 ML ORAL SOLUTION PO SCH ×4 (00:30→17:58)
[2018-02-02] MEDS: D5-1/2NS+10 MEQ KCL - 10 MEQ/1,000 ML INFUS.BAG IV SCH ×3 (03:20→22:09)
[2018-02-02] MEDS: metroNIDAZOLE 250 MG TABLET PO SCH ×3 (05:34→21:46)
[2018-02-02 07:58] LABS: BASO % 0.4 % (0-2.0); HEMATOCRIT 31.6 % (32.4-45.2); HEMOGLOBIN 10.6 GM/dL (10.7-15.3); LYMPH % 20.6 % (8-40); MCHC 33.6 g/dl (32.0-36.0); MEAN CELL VOLUME 89.2 fl (80-96); MEAN PLT VOLUME 9.4 fl (7.5-11.1); MONO % 18.8 % (3.8-10.2); NEUT % 55.2 % (42.8-82.8); PLATELET COUNT 133 K/MM3 (134-434); RBC 3.55 M/mm3 (3.60-5.2); RDW 14.4 % (11.6-15.6); WHITE BLOOD COUNT 6.3 K/mm3 (4.0-10.0)
[2018-02-02 08:11] LABS: ALBUMIN 2.7 g/dl (3.4-5.0); ANION GAP 7 (8-16); BLOOD UREA NITROGEN 3 mg/dL (7-18); CALCIUM 8.2 mg/dL (8.5-10.1); CHLORIDE 107 mmol/L (98-107); CO2 28 mmol/L (21-32); CREATININE 0.5 mg/dL (0.55-1.02); GLUCOSE,RANDOM 129 mg/dL (74-106); MAGNESIUM 1.8 mg/dL (1.8-2.4); SGOT/AST 25 U/L (15-37); SGPT/ALT 27 U/L (12-78); SODIUM 142 mmol/L (136-145); TOT PROT 5.6 g/dl (6.4-8.2)
[2018-02-02 08:12] LABS: ALK PHOS 112 U/L (45-117); BILIRUBIN,TOTAL < 0.1 mg/dL (0.2-1.0)
--- NOTE | 2018-02-02 14:27 | PN ---
Progress Note, Physician History of Present Illness: improving still distended but softer - Current Medication List Current Medications: Active Medications Potassium Chloride/Dextrose/Sod Cl (D5-1/2ns+10 Meq Kcl -) 10 meq in 1,000 mls @ 125 mls/hr IV ASDIR [facility] Last Admin: 02/02/18 03:20 Dose: 125 mls/hr Metronidazole (Flagyl -) 500 mg PO TID [facility] Last Admin: 02/02/18 13:21 Dose: 500 mg Morphine Sulfate (Morphine Sulfate) 2 mg IVPUSH Q4H PRN PRN Reason: PAIN LEVEL 4 - 6 Last Admin: 02/02/18 10:56 Dose: 2 mg Ondansetron HCl (Zofran Injection) 4 mg IVPB Q4H PRN PRN Reason: NAUSEA AND/OR VOMITING Vancomycin HCl (Vancomycin Oral Solution) 125 mg PO Q6HPO [facility] Last Admin: 02/02/18 11:36 Dose: 125 mg - Objective Vital Signs: Vital Signs Temperature 97.7 F 02/02/18 11:45 Pulse Rate 77 02/02/18 11:45 Respiratory Rate 20 02/02/18 11:45 Blood Pressure 150/80 02/02/18 11:45 O2 Sat by Pulse Oximetry (%) 97 02/01/18 21:00 Constitutional: Yes: No Distress, Calm Cardiovascular: Yes: Regular Rate and Rhythm Respiratory: Yes: Regular, CTA Bilaterally Gastrointestinal: Yes: Soft, Distention, Hypoactive Bowel Sounds Musculoskeletal: Yes: WNL Extremities: Yes: WNL Neurological: Yes: Alert, Oriented Psychiatric: Yes: Alert, Oriented Labs: CBC, BMP 02/02/18 06:00 02/02/18 06:00 Assessment/Plan Problem List - Problems (1) Abdominal pain Code(s): R10.9 - UNSPECIFIED ABDOMINAL PAIN Qualifiers: Abdominal location: generalized Qualified Code(s): R10.84 - Generalized abdominal pain (2) Colitis Code(s): K52.9 - NONINFECTIVE GASTROENTERITIS AND COLITIS, UNSPECIFIED (3) Clostridium difficile colitis Code(s): A04.72 - ENTEROCOLITIS D/T CLOSTRIDIUM DIFFICILE, NOT SPCF RECUR plan continue current mgmt rest as per the team
--- NOTE | 2018-02-02 16:22 | PN ---
Progress Note, Physician History of Present Illness: having lose bms wants pain med - Current Medication List Current Medications: Active Medications Potassium Chloride/Dextrose/Sod Cl (D5-1/2ns+10 Meq Kcl -) 10 meq in 1,000 mls @ 125 mls/hr IV ASDIR [facility] Last Admin: 02/02/18 03:20 Dose: 125 mls/hr Metronidazole (Flagyl -) 500 mg PO TID [facility] Last Admin: 02/02/18 13:21 Dose: 500 mg Ondansetron HCl (Zofran Injection) 4 mg IVPB Q4H PRN PRN Reason: NAUSEA AND/OR VOMITING Vancomycin HCl (Vancomycin Oral Solution) 125 mg PO Q6HPO [facility] Last Admin: 02/02/18 11:36 Dose: 125 mg - Objective Vital Signs: Vital Signs Temperature 97.7 F 02/02/18 11:45 Pulse Rate 77 02/02/18 11:45 Respiratory Rate 20 02/02/18 11:45 Blood Pressure 150/80 02/02/18 11:45 O2 Sat by Pulse Oximetry (%) 97 02/01/18 21:00 Constitutional: Yes: No Distress HENT: Yes: Atraumatic Neck: Yes: Supple Cardiovascular: Yes: Regular Rate and Rhythm Respiratory: Yes: CTA Bilaterally Gastrointestinal: Yes: Distention, Hypoactive Bowel Sounds Extremities: Yes: WNL Peripheral Pulses WNL: Yes Neurological: Yes: Alert, Oriented Labs: CBC, BMP 02/02/18 06:00 02/02/18 06:00 Problem List - Problems (1) Abdominal pain Assessment/Plan: prn pain meds on full liquid diet now Code(s): R10.9 - UNSPECIFIED ABDOMINAL PAIN Qualifiers: Abdominal location: generalized Qualified Code(s): R10.84 - Generalized abdominal pain (2) Colitis Assessment/Plan: on po abx full liquid diet xray ileus will cut down on narcotics Code(s): K52.9 - NONINFECTIVE GASTROENTERITIS AND COLITIS, UNSPECIFIED (3) Clostridium difficile colitis Assessment/Plan: on abx per id Code(s): A04.72 - ENTEROCOLITIS D/T CLOSTRIDIUM DIFFICILE, NOT SPCF RECUR
--- NOTE | 2018-02-02 20:11 | PN ---
GI Progress Note Subjective: GI NOte: Still distended and having cramp pain but stool began to have some form this AM. FUA most c/w ileus. - Objective Vital Signs: Vital Signs Temperature 98.4 F 02/02/18 16:20 Pulse Rate 74 02/02/18 16:20 Respiratory Rate 20 02/02/18 16:20 Blood Pressure 152/68 02/02/18 16:20 O2 Sat by Pulse Oximetry (%) 97 02/02/18 09:00 Laboratory Tests 02/02/18 06:00 BUN 3 L Creatinine 0.5 L C-Reactive Protein 4.6 H Albumin 2.7 L Constitutional: Calm Gastrointestinal Inspection: Yes: Distention ...Auscultate: Yes: Hypoactive Bowel Sounds ...Palpate: Yes: Soft, Other (nontender) ...Percussion: Yes: Tympanitic Labs: CBC, BMP 02/02/18 06:00 02/02/18 06:00 Problem List - Problems (1) Distended abdomen Assessment/Plan: Post C diff colitis ileus. Back on liquids. Agree with stopping narcotics which aggravate the ileus. Continue IV fluids, vanco, flagyl and observation. CRP is dropping as is albumin. Code(s): R14.0 - ABDOMINAL DISTENSION (GASEOUS) (2) Altered bowel function Code(s): R19.8 - OTH SYMPTOMS AND SIGNS INVOLVING THE DGSTV SYS AND ABDOMEN (3) Clostridium difficile colitis Code(s): A04.72 - ENTEROCOLITIS D/T CLOSTRIDIUM DIFFICILE, NOT SPCF RECUR (4) Diverticulitis Code(s): K57.92 - DVTRCLI OF INTEST, PART UNSP, W/O PERF OR ABSCESS W/O BLEED
[2018-02-02] MEDS ORDERED: ACETAMINOPHEN 325 MG TABLET (FP) PO ONE (21:12)
[2018-02-02] MEDS ORDERED: MELATONIN 1 MG TABLET PO ONE (21:13)
[2018-02-03] MEDS: VANCOMYCIN 250 MG/5 ML ORAL SOLUTION PO SCH ×4 (00:55→17:54)
[2018-02-03] MEDS: MORPHINE SULFATE 2 MG/ML VIAL IVPUSH PRN (03:16)
[2018-02-03] MEDS: D5-1/2NS+10 MEQ KCL - 10 MEQ/1,000 ML INFUS.BAG IV SCH (06:23)
[2018-02-03] MEDS: metroNIDAZOLE 250 MG TABLET PO SCH (06:23)
--- NOTE | 2018-02-03 09:43 | PN ---
GI Progress Note Subjective: GI NOte: Feeling much better. Stools have some form. Had only 1 BM so far today. Less distended. Hungry. - Objective Vital Signs: Vital Signs Temperature 97.6 F 02/03/18 06:50 Pulse Rate 66 02/03/18 06:50 Respiratory Rate 20 02/03/18 06:50 Blood Pressure 140/91 02/03/18 06:50 O2 Sat by Pulse Oximetry (%) 98 02/02/18 21:00 Constitutional: Calm Gastrointestinal Inspection: Yes: Distention ...Auscultate: Yes: Normoactive Bowel Sounds ...Palpate: Yes: Soft, Other (nontender) ...Percussion: Yes: Tympanitic Labs: CBC, BMP 02/02/18 06:00 02/02/18 06:00 Problem List - Problems (1) Distended abdomen Assessment/Plan: Post C diff colitis ileus. Will try low fiber diet If tolerated can stop IV fluids and consider discharge in AM on Vanco. Code(s): R14.0 - ABDOMINAL DISTENSION (GASEOUS) (2) Altered bowel function Code(s): R19.8 - OTH SYMPTOMS AND SIGNS INVOLVING THE DGSTV SYS AND ABDOMEN (3) Clostridium difficile colitis Code(s): A04.72 - ENTEROCOLITIS D/T CLOSTRIDIUM DIFFICILE, NOT SPCF RECUR (4) Diverticulitis Code(s): K57.92 - DVTRCLI OF INTEST, PART UNSP, W/O PERF OR ABSCESS W/O BLEED
--- NOTE | 2018-02-03 11:53 | PN ---
Progress Note, Physician History of Present Illness: stable no new issues abd distension less - Current Medication List Current Medications: Active Medications Potassium Chloride/Dextrose/Sod Cl (D5-1/2ns+10 Meq Kcl -) 10 meq in 1,000 mls @ 125 mls/hr IV ASDIR [facility] Last Admin: 02/03/18 06:23 Dose: 125 mls/hr Metronidazole (Flagyl -) 500 mg PO TID [facility] Last Admin: 02/03/18 06:23 Dose: 500 mg Ondansetron HCl (Zofran Injection) 4 mg IVPB Q4H PRN PRN Reason: NAUSEA AND/OR VOMITING Vancomycin HCl (Vancomycin Oral Solution) 125 mg PO Q6HPO [facility] Last Admin: 02/03/18 06:24 Dose: 125 mg - Objective Vital Signs: Vital Signs Temperature 98.4 F 02/03/18 10:35 Pulse Rate 72 02/03/18 10:35 Respiratory Rate 20 02/03/18 10:35 Blood Pressure 157/94 02/03/18 10:35 O2 Sat by Pulse Oximetry (%) 98 02/02/18 21:00 Constitutional: Yes: No Distress, Calm Cardiovascular: Yes: Regular Rate and Rhythm Respiratory: Yes: Regular, CTA Bilaterally Gastrointestinal: Yes: Soft, Other Musculoskeletal: Yes: WNL Extremities: Yes: WNL Neurological: Yes: Alert, Oriented Labs: CBC, BMP 02/02/18 06:00 02/02/18 06:00 Assessment/Plan Problem List - Problems (1) Abdominal pain Code(s): R10.9 - UNSPECIFIED ABDOMINAL PAIN Qualifiers: Abdominal location: generalized Qualified Code(s): R10.84 - Generalized abdominal pain (2) Colitis Code(s): K52.9 - NONINFECTIVE GASTROENTERITIS AND COLITIS, UNSPECIFIED (3) Clostridium difficile colitis Code(s): A04.72 - ENTEROCOLITIS D/T CLOSTRIDIUM DIFFICILE, NOT SPCF RECUR plan will discontinue flagyl continue vanco
[2018-02-03 16:49] VITALS: BP 150/92; PULSE 71; TEMP 98.1
--- NOTE | 2018-02-03 18:19 | PN ---
Progress Note, Physician History of Present Illness: feeling better had good bm passing gas - Current Medication List Current Medications: Active Medications Potassium Chloride/Dextrose/Sod Cl (D5-1/2ns+10 Meq Kcl -) 10 meq in 1,000 mls @ 125 mls/hr IV ASDIR [facility] Last Admin: 02/03/18 06:23 Dose: 125 mls/hr Ondansetron HCl (Zofran Injection) 4 mg IVPB Q4H PRN PRN Reason: NAUSEA AND/OR VOMITING Vancomycin HCl (Vancomycin Oral Solution) 125 mg PO Q6HPO [facility] Last Admin: 02/03/18 17:54 Dose: 125 mg - Objective Vital Signs: Vital Signs Temperature 98.1 F 02/03/18 16:48 Pulse Rate 71 02/03/18 16:48 Respiratory Rate 20 02/03/18 16:48 Blood Pressure 150/92 02/03/18 16:48 O2 Sat by Pulse Oximetry (%) 100 02/03/18 09:00 Constitutional: Yes: No Distress HENT: Yes: Atraumatic Neck: Yes: Supple Cardiovascular: Yes: Regular Rate and Rhythm Respiratory: Yes: CTA Bilaterally Gastrointestinal: Yes: Normal Bowel Sounds, Other (not distended pt says now she is normal) Extremities: Yes: WNL Edema: No Peripheral Pulses WNL: Yes Neurological: Yes: Alert, Oriented Labs: CBC, BMP 02/02/18 06:00 02/02/18 06:00 Problem List - Problems (1) Abdominal pain Assessment/Plan: no pain on low fiber diet diet passing gas had bm Code(s): R10.9 - UNSPECIFIED ABDOMINAL PAIN Qualifiers: Abdominal location: generalized Qualified Code(s): R10.84 - Generalized abdominal pain (2) Colitis Assessment/Plan: on po vanco only resolved Code(s): K52.9 - NONINFECTIVE GASTROENTERITIS AND COLITIS, UNSPECIFIED (3) Clostridium difficile colitis Assessment/Plan: on abx per id Code(s): A04.72 - ENTEROCOLITIS D/T CLOSTRIDIUM DIFFICILE, NOT SPCF RECUR
--- NOTE | 2018-02-03 19:10 | DS ---
Physical Examination Vital Signs: Vital Signs Temperature 98.1 F 02/03/18 16:48 Pulse Rate 71 02/03/18 16:48 Respiratory Rate 20 02/03/18 16:48 Blood Pressure 150/92 02/03/18 16:48 O2 Sat by Pulse Oximetry (%) 100 02/03/18 09:00 Constitutional: Yes: No Distress HENT: Yes: Atraumatic Neck: Yes: Supple Cardiovascular: Yes: Regular Rate and Rhythm Respiratory: Yes: CTA Bilaterally Gastrointestinal: Yes: Normal Bowel Sounds Extremities: Yes: WNL Neurological: Yes: Alert, Oriented Labs: CBC, BMP 02/02/18 06:00 02/02/18 06:00 Discharge Summary Reason For Visit: COLITIS DUE TO CLOSTRIDIUM DIFFICILE Current Active Problems Abdominal pain (Acute) Altered bowel function (Acute) Clostridium difficile colitis (Acute) Colitis (Acute) Distended abdomen (Acute) - Instructions Diet, Activity, Other Instructions: low fiber diet Referrals: Emre Grande MD [Staff Physician] - Perry Vega MD [Staff Physician] - Joaquim Jackson [Primary Care Provider] - - Home Medications Comprehensive Discharge Medication List: Ambulatory Orders Atorvastatin Ca [Lipitor] 10 mg PO HS 12/07/17 Vancomycin Oral Solution 125 mg PO Q6HPO ml 02/03/18 dc home pt has vanco pills
== END 2018-02-03 19:59 | disposition home or self-care (01) | DRG 372 ==
LOC: JER 16:56 → JERBED 21:23 → J8W 01-30 14:16
PROVIDERS: ADMIT Internal Medicine; ATTEND Internal Medicine
DX: A04.72 Enterocolitis due to Clostridium difficile, not specified as recurrent (principal); K57.92 Diverticulitis of intestine, part unspecified, without perforation or abscess without bleeding; F17.210 Nicotine dependence, cigarettes, uncomplicated; E78.5 Hyperlipidemia, unspecified
CPT/HCPCS: 36415; 74019-TC-FY; 74177-TC; 80048; 80053; 81003; 81015; 83605; 83690; 83735; 84999; 85025; 85027; 86140; 87045; 87046; 87324; 87449; 93005; 93010; 99283-25; J0131; J7030; Q0162

== ENCOUNTER 2018-06-17 10:45 | Emergency (ER) | payer OTHER ==
[2018-06-17 10:52] VITALS: BMI 21.1
[2018-06-17] MEDS ORDERED: SODIUM CHLORIDE 1,000 ML IV STA (11:02)
--- NOTE | 2018-06-17 11:14 | PDOC ---
History of Present Illness - General Chief Complaint: Pain, Acute Stated Complaint: STOMACH PAIN Time Seen by Provider: 06/17/18 10:50 History Source: Patient Exam Limitations: No Limitations - History of Present Illness Initial Comments: 62 y/o F hx of hysterectomy, diverticulitis 12/08 (tx Augmentin), C. diff 01/08 ( tx with Vancomycin), recently admitted 02/07 for pancolitis (discharged on Vancomycin; stool cxs from that visit were negative) presents with LLQ abdominal pain from last night along with bloating and 1 episode of watery diarrhea today. States symptoms feel like her prior diverticulitis. Mentions she is still taking Vancomycin and is being weaned off of the antibiotic by her GI doctor, Dr. Jonas Joyce (currently taking it twice a week and will start taking it once a week from this week). Denies fever, chills, sob, cp, n/v, urinary complaints, black/bloody stools. 06/17/18 11:11 Past History - Past Medical History Allergies/Adverse Reactions: Allergies Allergy/AdvReac Type Severity Reaction Status Date / Time No Known Allergies Allergy Verified 06/17/18 10:46 Home Medications: Ambulatory Orders Atorvastatin Ca [Lipitor] 10 mg PO HS 12/07/17 COPD: No GI Disorders: Yes (diverticulitis, colitis) Hypercholesterolemia: Yes - Immunization History Immunization Up to Date: Yes - Suicide/Smoking/Psychosocial Hx Smoking History: Current every day smoker Have you smoked in the past 12 months: Yes Number of Cigarettes Smoked Daily: 5 Information on smoking cessation initiated: No 'Breaking Loose' booklet given: 01/30/18 Hx Alcohol Use: No Drug/Substance Use Hx: No Substance Use Type: None Hx Substance Use Treatment: No Abd/GI Specific PMHX - Complaint Specific PMHX Colitis: Yes Diverticulitis: Yes Review of Systems - Review of Systems Comments:: See HPI 06/17/18 11:17 *Physical Exam - Vital Signs Last Vital Signs Temp Pulse Resp BP Pulse Ox 98.2 F 95 H 20 193/105 H 99 06/17/18 10:47 06/17/18 10:47 06/17/18 10:47 06/17/18 10:47 06/17/18 10:47 - Physical Exam General Appearance: No: Apparent Distress Respiratory/Chest: positive: Lungs Clear, Normal Breath Sounds. negative: Respiratory Distress Cardiovascular: positive: Regular Rhythm, Regular Rate, S1, S2. negative: Murmur Gastrointestinal/Abdominal: positive: Distended, Tenderness (Along LUQ and LLQ ( LLQ >LUQ)). negative: Increased Bowel Sounds, Decreased BS, Guarding, Rebound, Mass Musculoskeletal: negative: CVA Tenderness Integumentary: positive: Normal Color Neurologic: positive: Fully Oriented, Alert, Normal Mood/Affect ED Treatment Course - LABORATORY CBC & Chemistry Diagram: 06/17/18 11:15 06/17/18 11:15 - RADIOLOGY Radiology Studies Ordered: Category Date Time Status ABDOMEN & PELVIS CT WITH CONTR [CT] Stat CT Scan 06/17/18 11:01 Ordered Medical Decision Making - Medical Decision Making 62 y/o F hx of diverticulitis, colitis, C. diff presents with LUQ/LLQ abd pain and watery diarrhea x 1 day. Consider diverticulitis, infectious colitis (such as C. diff); less suspicious for ischemic colitis, pancreatitis. Consider SBO though with no vomiting and having diarrhea. Plan: CBC, CMP, lipase, stool culture, c. diff, IVF, CT abd/pelvis 06/17/18 11:18 Abnormal Lab Results 06/17/18 11:15 BUN 22 H Random Glucose 108 H AST 39 H Alkaline Phosphatase 118 H Labs unremarkable with normal WBC UA neg CT abd/pelvis shows diverticulosis but no evidence of diverticulitis, colitis or other acute pathology Stool cultures sent and pending Patient advised to f/u with her GI doctor and PCP (works at [employer]) Patient tolerated PO challenge and would prefer to go home 06/17/18 14:39 *DC/Admit/Observation/Transfer Diagnosis at time of Disposition: Diverticulosis - Discharge Dispostion Disposition: HOME Condition at time of disposition: Good Decision to Admit order: No - Referrals Referrals: Jonas Joyce MD [Staff Physician] - 3 days - Patient Instructions Printed Discharge Instructions: DI for Diverticulosis Additional Instructions: Thank you for choosing [facility]. It was a pleasure taking care of you. You were seen here for abdominal pain and diarrhea. You had CT scan done which showed no evidence of infection, but showed you had diverticulosis Encourage staying hydrated (drink at least 2 Liters of water a day) You had stool cultures sent; if they are abnormal, you will be notified Please follow-up with your GI doctor. Return to the Emergency Department if your symptoms worsen or persist, you have fever, shortness of breath, chest pain, severe abdominal pain, vomiting, black or bloody stools, unable to keep down food or water or other concerning symptoms. - Post Discharge Activity
[2018-06-17 11:39] LABS: BASO % 0.5 % (0-2.0); EOS % 3.8 % (0-4.5); HEMATOCRIT 40.4 % (32.4-45.2); HEMOGLOBIN 14.2 GM/dL (10.7-15.3); LYMPH % 22.4 % (8-40); MCH 30.5 pg (25.7-33.7); MCHC 35.1 g/dl (32.0-36.0); MEAN CELL VOLUME 86.9 fl (80-96); MEAN PLT VOLUME 9.4 fl (7.5-11.1); MONO % 9.4 % (3.8-10.2); NEUT % 63.9 % (42.8-82.8); PLATELET COUNT 193 K/MM3 (134-434); RBC 4.65 M/mm3 (3.60-5.2); RDW 14.1 % (11.6-15.6); WHITE BLOOD COUNT 9.7 K/mm3 (4.0-10.0)
[2018-06-17] MEDS ORDERED: ACETAMINOPHEN 1000 MG/100 ML VIAL (NON FORMULARY) IVPB ONE (11:56)
[2018-06-17 12:13] LABS: ALK PHOS 118 U/L (45-117); ANION GAP 9 MMOL/L (8-16); BILIRUBIN,TOTAL 0.4 mg/dL (0.2-1); BLOOD UREA NITROGEN 22 mg/dL (7-18); CALCIUM 9.3 mg/dL (8.5-10.1); CHLORIDE 105 mmol/L (98-107); CO2 26 mmol/L (21-32); CREATININE 0.6 mg/dL (0.55-1.3); GLUCOSE,RANDOM 108 mg/dL (74-106); LIPASE 264 U/L (73-393); POTASSIUM 4.5 mmol/L (3.5-5.1); SGOT/AST 39 U/L (15-37); SGPT/ALT 43 U/L (13-61); SODIUM 139 mmol/L (136-145); TOT PROT 7.8 g/dl (6.4-8.2)
[2018-06-17] MEDS ORDERED: ACETAMINOPHEN INJECTION 100 ML IVPB ONE (12:22)
[2018-06-17] MEDS ORDERED: ONDANSETRON 4 MG/2 ML VIAL IVPUSH ONE (12:47)
[2018-06-17] MEDS ORDERED: morphine CARPU-JECT 4 MG/1 ML DISP.SYRIN IVPUSH ONE (12:48)
[2018-06-17] MEDS ORDERED: ONDANSETRON 4 MG/2 ML VIAL ONE (13:00)
[2018-06-17] MEDS ORDERED: morphine SULFATE 4 MG/ML VIAL ONE (13:00)
[2018-06-17 13:26] LABS: URINE APPEARANCE CLEAR; URINE BILIRUBIN NEGATIVE (<2.0 mg/dL); URINE COLOR LTYELLOW; URINE GLUCOSE (UA) NEGATIVE (NEGATIVE); URINE KETONE NEGATIVE (NEGATIVE); URINE LEUK ESTERASE TRACE (NEGATIVE); URINE NITRITE NEGATIVE (NEGATIVE); URINE PROTEIN NEGATIVE (NEGATIVE); URINE UROBILINOGEN NEGATIVE mg/dL (0.2-1.0)
[2018-06-17 13:47] LABS: EPI CELLS RARE /HPF (FEW); GRANULAR CASTS 1 /lpf
[2018-06-17 14:47] VITALS: BP 161/99; PULSE 78; TEMP 98.4
== END 2018-06-17 15:00 | disposition home or self-care (01) ==
LOC: JER 10:45
PROC: 3E0337Z Introduction of Electrolytic and Water Balance Substance into Peripheral Vein, Percutaneous Approach (ICD-10-PCS; principal; 2018-06-17)
PROC: 3E033NZ Introduction of Analgesics, Hypnotics, Sedatives into Peripheral Vein, Percutaneous Approach (ICD-10-PCS; 2018-06-17)
PROC: 3E0333Z Introduction of Anti-inflammatory into Peripheral Vein, Percutaneous Approach (ICD-10-PCS; 2018-06-17)
PROC: 3E033GC Introduction of Other Therapeutic Substance into Peripheral Vein, Percutaneous Approach (ICD-10-PCS; 2018-06-17)
DX: K57.90 Diverticulosis of intestine, part unspecified, without perforation or abscess without bleeding (principal); Z87.19 Personal history of other diseases of the digestive system; Z86.19 Personal history of other infectious and parasitic diseases
CPT/HCPCS: 36415; 74177-TC; 80053; 81003; 81015; 83690; 85025; 87045; 87046; 87186; 87324; 87449; 99283-25; J0131; J7030; Q9967

== ENCOUNTER 2019-03-06 03:49 | Inpatient (IN) | payer OTHER ==
[2019-03-06] MEDS ORDERED: morphine CARPU-JECT 4 MG/1 ML DISP.SYRIN IVPUSH ONE ×3 (04:20→06:04)
[2019-03-06] MEDS ORDERED: SODIUM CHLORIDE 1,000 ML IV STA (04:20)
[2019-03-06] MEDS ORDERED: ONDANSETRON 4 MG/2 ML VIAL IVPUSH ONE (04:20)
[2019-03-06] MEDS ORDERED: morphine SULFATE 4 MG/ML VIAL ONE ×3 (04:23→06:13)
[2019-03-06] MEDS ORDERED: ONDANSETRON 4 MG/2 ML VIAL ONE (04:23)
--- NOTE | 2019-03-06 04:55 | PDOC ---
History of Present Illness - General Chief Complaint: Pain Stated Complaint: LLQ PAIN Time Seen by Provider: 03/06/19 04:15 History Source: Patient Exam Limitations: No Limitations - History of Present Illness Initial Comments: 03/06/19 04:51 Patient is a 63F with history of diverticulitis and hysterectomy here today complaining of LLQ abdominal pain that started yesterday. Endorses associated nausea, denies vomiting, fevers, chills. Last bowel movement yesterday. Denies diarrhea, constipation. States that this feels like her prior episodes of diverticulitis. Denies dysuria. Denies chest pain, shortness of breath. Pain is generalized ache with stabbing pain when pain worsens. Past History - Past Medical History Allergies/Adverse Reactions: Allergies Allergy/AdvReac Type Severity Reaction Status Date / Time No Known Allergies Allergy Verified 03/06/19 04:33 Home Medications: Ambulatory Orders Atorvastatin Ca [Lipitor] 10 mg PO HS 12/07/17 COPD: No GI Disorders: Yes (diverticulitis, colitis) Hypercholesterolemia: Yes - Immunization History Immunization Up to Date: Yes - Suicide/Smoking/Psychosocial Hx Smoking History: Never smoked Have you smoked in the past 12 months: Yes Number of Cigarettes Smoked Daily: 5 'Breaking Loose' booklet given: 01/30/18 Hx Alcohol Use: No Drug/Substance Use Hx: No Substance Use Type: None Hx Substance Use Treatment: No Review of Systems - Review of Systems Able to Perform ROS?: Yes Comments:: 03/06/19 04:53 GENERAL/CONSTITUTIONAL: No fever or chills. No weakness. HEAD, EYES, EARS, NOSE AND THROAT: No change in vision. No ear pain or discharge. No sore throat. CARDIOVASCULAR: No chest pain or shortness of breath RESPIRATORY: No cough, wheezing, or hemoptysis. GASTROINTESTINAL: +nausea, no vomiting, diarrhea or constipation. GENITOURINARY: No dysuria, frequency, or change in urination. MUSCULOSKELETAL: No joint or muscle swelling or pain. No neck or back pain. SKIN: No rash NEUROLOGIC: No headache, vertigo, loss of consciousness, or change in strength/ sensation. ENDOCRINE: No increased thirst. No abnormal weight change HEMATOLOGIC/LYMPHATIC: No anemia, easy bleeding, or history of blood clots. ALLERGIC/IMMUNOLOGIC: No hives or skin allergy. *Physical Exam - Vital Signs Last Vital Signs Temp Pulse Resp BP Pulse Ox 98.1 F 87 18 144/91 97 03/06/19 04:25 03/06/19 04:25 03/06/19 04:25 03/06/19 04:25 03/06/19 04:25 - Physical Exam Comments: 03/06/19 04:54 GENERAL: Awake, alert, and fully oriented, in pain HEAD: No signs of trauma, normocephalic, atraumatic EYES: PERRLA, EOMI, sclera anicteric, conjunctiva clear ENT: Auricles normal inspection, hearing grossly normal, nares patent, oropharynx clear without exudates. Moist mucosa NECK: Normal ROM, supple, no lymphadenopathy, JVD, or masses LUNGS: No distress, speaks full sentences, clear to auscultation bilaterally HEART: Regular rate and rhythm, normal S1 and S2, no murmurs, rubs or gallops, peripheral pulses normal and equal bilaterally. ABDOMEN: Tender with rebound, worse in LLQ, some distention but soft EXTREMITIES: Normal inspection, Normal range of motion, no edema. No clubbing or cyanosis. NEUROLOGICAL: Cranial nerves II through XII grossly intact. Normal speech, no focal sensorimotor deficits SKIN: Warm, Dry, normal turgor, no rashes or lesions noted. ED Treatment Course - LABORATORY CBC & Chemistry Diagram: 03/06/19 04:39 03/06/19 04:44 - RADIOLOGY Radiology Studies Ordered: Category Date Time Status ABDOMEN & PELVIS CT W/O CONTR [CT] Stat CT Scan 03/06/19 04:21 Ordered - Medications Given in the ED: ED Medications Discontinued Medications Generic Name Dose Route Start Last Admin Trade Name Nehal PRN Reason Stop Dose Admin Morphine Sulfate 4 mg 03/06/19 04:20 03/06/19 04:38 Morphine Injection - IVPUSH 03/06/19 04:21 4 mg ONCE ONE Administration Ondansetron HCl 4 mg 03/06/19 04:20 03/06/19 04:39 Zofran Injection IVPUSH 03/06/19 04:21 4 mg ONCE ONE Administration Medical Decision Making - Medical Decision Making 03/06/19 04:54 Patient is 63F with history of diverticulitis, hysterectomy here today complaining of llq pain. Vitals normal and stable. DDx includes, but is not limited to: diverticulitis, uti, sbo. Will do abdominal labs, ct, ua. Will treat with fluids, morphine, zofran. 03/06/19 05:05 EKG shows NSR with rate of 70. No st elevations/depressions. Normal axis. Normal intervals. No significant t wave abnormalities. 03/06/19 05:37 CBC shows leukocytosis CMP reassuring. Lipase pending. Patient's pain not controlled pain not controlled by morphine x2. 03/06/19 06:10 CT shows diverticulitis, still in pain. Given morphine. Given ceftriaxone and flagyl. Case d/w armando Catherine for med/surg. *DC/Admit/Observation/Transfer Diagnosis at time of Disposition: Diverticulitis - Discharge Dispostion Condition at time of disposition: Fair Decision to Admit order: Yes - Referrals Referrals: Joaquim Jackson [Primary Care Provider] - - Patient Instructions - Post Discharge Activity
[2019-03-06 05:03] LABS: BASO % 0.7 % (0-2.0); EOS % 1.8 % (0-4.5); HEMATOCRIT 41.3 % (32.4-45.2); HEMOGLOBIN 13.8 GM/dL (10.7-15.3); LYMPH % 10.6 % (8-40); MCH 29.8 pg (25.7-33.7); MCHC 33.4 g/dl (32.0-36.0); MEAN CELL VOLUME 89.2 fl (80-96); MEAN PLT VOLUME 9.7 fl (7.5-11.1); MONO % 8.7 % (3.8-10.2); NEUT % 78.2 % (42.8-82.8); PLATELET COUNT 256 K/MM3 (134-434); RBC 4.63 M/mm3 (3.60-5.2); RDW 14.1 % (11.6-15.6); WHITE BLOOD COUNT 19.7 K/mm3 (4.0-10.0)
[2019-03-06 05:23] LABS: ALBUMIN 3.9 g/dl (3.4-5.0); BILIRUBIN,TOTAL 0.3 mg/dL (0.2-1); BLOOD UREA NITROGEN 18.1 mg/dL (7-18); CALCIUM 10.2 mg/dL (8.5-10.1); CREATININE 0.7 mg/dL (0.55-1.3); POTASSIUM 4.3 mmol/L (3.5-5.1); TOT PROT 7.5 g/dl (6.4-8.2)
[2019-03-06 05:38] LABS: INR 0.93 (0.83-1.09)
[2019-03-06] MEDS ORDERED: CEFTRIAXONE 1,000 MG in DEXTROSE 5%-WATER - 50 ML IVPB ONE (06:08)
[2019-03-06] MEDS ORDERED: CEFTRIAXONE 1 GM/50 ML BAG ONE (06:14)
--- NOTE | 2019-03-06 06:16 | PDOC ---
Documentation entered by Oneal Trammell SCRIBE, acting as scribe for Mar Lane DO. Mar Lane DO: This documentation has been prepared by the Valeri torres Elijah, SCRIBE, under my direction and personally reviewed by me in its entirety. I confirm that the documentation accurately reflects all work , treatment, procedures, and medical decision making performed by me. Attending Attestation - Resident Resident Name: Baron Galaviz - ED Attending Attestation I have performed the following: I have examined & evaluated the patient, The case was reviewed & discussed with the resident, I agree w/resident's findings & plan - HPI HPI: 03/06/19 04:35 Patient is a 63 year old female with a significant past medical history of diverticulitis who presents to the ED with Left Lower Quadrant pain. Patient associates some nausea and notes the pain is similar to pain she normally has with her diverticulitis. Denies Vomiting. Allergies: NKA PCP: Dr. Jackson - Physicial Exam PE: 03/06/19 04:36 Agree with Resident's Exam. - Medical Decision Making 03/06/19 20:51 63-year-old female with left lower quadrant abdominal pain CT scan is consistent with acute diverticulitis without abscess Due to persistent pain and medical service for further evaluation
[2019-03-06] MEDS ORDERED: ACETAMINOPHEN 1000 MG/100 ML VIAL (NON FORMULARY) IVPB ONE ×2 (07:23→22:27)
[2019-03-06] MEDS ORDERED: ACETAMINOPHEN INJECTION 100 ML IVPB ONE (07:23)
--- NOTE | 2019-03-06 07:37 | HP ---
CHIEF COMPLAINT:LLQ pain PCP: GI- Dr. Hartman HISTORY OF PRESENT ILLNESS: 63 y/o female with PMH of HLD and previous episodes of diverticulitis (last one being in november 2017) presents to the ED with acute onset LLQ pain. She states that she was eating dinner around 5;30- had green and salad, around 30 minutes later started to develop pain and thought she had to move her bowels, so she did (was a little on the loose side though not osmar diarrhea) and the pain continued throughout the night and got very severe almost reaching a 10/10 , she had some associated nausea no vomiting . she came to the hospital due to the severity of the pain- she states that this is very similar to her previous episodes of diverticulitis. she had a colonoscopy a few months ago with dr. hartman which was normal. she denies any fevers,chills, recent travel or sick contacts ER course was notable for: (1)vitals wnl; wbc 19.2 (2) ab/plevis CT showed focal sigmoid inflammation consistent w/ mild diverticulitis (3given ceftriaxone/flagyl/ morphine (x3), IV tylenol fluids Recent Travel: denies PAST MEDICAL HISTORY: see above PAST SURGICAL HISTORY: hysterectomy Social History: Smoking:smokes 1/2 ppd Alcohol:social Drugs: denies Family History: mother has "blood issues" Allergies No Known Allergies Allergy (Verified 03/06/19 04:33) HOME MEDICATIONS: Home Medications Medication Instructions Recorded Atorvastatin Ca [Lipitor] 10 mg PO HS 12/07/17 REVIEW OF SYSTEMS CONSTITUTIONAL: Absent: fever, chills, diaphoresis, generalized weakness, malaise, loss of appetite, weight change HEENT: Absent: rhinorrhea, nasal congestion, throat pain, throat swelling, difficulty swallowing, mouth swelling, ear pain, eye pain, visual changes CARDIOVASCULAR: Absent: chest pain, syncope, palpitations, irregular heart rate, lightheadedness , peripheral edema RESPIRATORY: Absent: cough, shortness of breath, dyspnea with exertion, orthopnea, wheezing, stridor, hemoptysis GASTROINTESTINAL: Present: abdominal pain, nausea Absent: abdominal distension,vomiting, diarrhea , constipation, melena, hematochezia GENITOURINARY: Absent: dysuria, frequency, urgency, hesitancy, hematuria, flank pain, genital pain MUSCULOSKELETAL: Absent: myalgia, arthralgia, joint swelling, back pain, neck pain SKIN: Absent: rash, itching, pallor HEMATOLOGIC/IMMUNOLOGIC: Absent: easy bleeding, easy bruising, lymphadenopathy, frequent infections ENDOCRINE: Absent: unexplained weight gain, unexplained weight loss, heat intolerance, cold intolerance NEUROLOGIC: Absent: headache, focal weakness or paresthesias, dizziness, unsteady gait, seizure, mental status changes, bladder or bowel incontinence PSYCHIATRIC: Absent: anxiety, depression, suicidal or homicidal ideation, hallucinations. PHYSICAL EXAMINATION Vital Signs - 24 hr 03/06/19 03/06/19 04:25 04:50 Temperature 98.1 F Pulse Rate 87 Respiratory 18 Rate Blood Pressure 144/91 O2 Sat by Pulse 97 97 Oximetry (%) GENERAL: Awake, alert, and fully oriented, in slight acute distress. EYES: PEERLA: EOMI: no scleral icterus NECK:no JVD: no lymphadenopathy LUNGS: CTA B/L;no rales, rhonchi or wheezing HEART: Regular rate and rhythm, normal S1 and S2 without murmur, rub or gallop. ABDOMEN: Soft, severe LLQ tenderness upon palpation; slight distention +BS in all 4 quadrants EXTREMITIES: warm; well perfused no clubbing/cyanosis or edema NEUROLOGICAL: Cranial nerves II-XII intact. Normal speech. Normal gait. PSYCHIATRIC: Cooperative. Good eye contact. Appropriate mood and affect. SKIN: Warm, dry, normal turgor, no rashes or lesions noted, normal capillary refill. Laboratory Results - last 24 hr 03/06/19 03/06/19 03/06/19 04:39 04:44 04:44 WBC 19.7 H RBC 4.63 Hgb 13.8 Hct 41.3 MCV 89.2 MCH 29.8 MCHC 33.4 RDW 14.1 Plt Count 256 D MPV 9.7 Absolute Neuts (auto) 15.4 H Neutrophils % 78.2 D Lymphocytes % 10.6 D Monocytes % 8.7 Eosinophils % 1.8 Basophils % 0.7 Nucleated RBC % 0 PT with INR INR Sodium 139 Potassium 4.3 Chloride 105 Carbon Dioxide 27 Anion Gap 7 L BUN 18.1 H Creatinine 0.7 Est GFR (CKD-EPI)AfAm 106.87 Est GFR (CKD-EPI)NonAf 92.21 Random Glucose 106 Calcium 10.2 H Total Bilirubin 0.3 AST 23 ALT 31 Alkaline Phosphatase 179 H C-Reactive Protein 1.2 H Total Protein 7.5 Albumin 3.9 Lipase 320 Cancelled 03/06/19 04:44 WBC RBC Hgb Hct MCV MCH MCHC RDW Plt Count MPV Absolute Neuts (auto) Neutrophils % Lymphocytes % Monocytes % Eosinophils % Basophils % Nucleated RBC % PT with INR 11.00 INR 0.93 Sodium Potassium Chloride Carbon Dioxide Anion Gap BUN Creatinine Est GFR (CKD-EPI)AfAm Est GFR (CKD-EPI)NonAf Random Glucose Calcium Total Bilirubin AST ALT Alkaline Phosphatase C-Reactive Protein Total Protein Albumin Lipase ASSESSMENT/PLAN: 63 y/o female with PMH of HLD and previous episodes of diverticulitis (last one being in november 2017) presents to the ED with acute onset LLQ pain found to have mild diverticulitis on CT scan. #Diverticulitis patient found to have sigmoid inflammation consistent w/ diverticulitis on CT scan -already received ceftriaxone/flagyl in ED- -c/w levaquin 500 daily/flagyl 00 q8H -zofran PRN for nausea -morphine 2q6H PRN for pain -LR @75mls/hr #HLD -will c/w lipitor 10 HS F/E/N LR @75mls/hr monitor electrolytes clears DVT PPX: lovenox Problem List - Problem (1) Diverticulitis Code(s): K57.92 - DVTRCLI OF INTEST, PART UNSP, W/O PERF OR ABSCESS W/O BLEED Visit type - Emergency Visit Emergency Visit: Yes ED Registration Date: 03/06/19 Care time: The patient presented to the Emergency Department on the above date and was hospitalized for further evaluation of their emergent condition. - New Patient This patient is new to me today: Yes Date on this admission: 03/06/19 - Critical Care Critical Care patient: No ATTENDING PHYSICIAN STATEMENT I saw and evaluated the patient. I reviewed the resident's note and discussed the case with the resident. I agree with the resident's findings and plan as documented. SUBJECTIVE: OBJECTIVE: ASSESSMENT AND PLAN:
[2019-03-06] MEDS ORDERED: ONDANSETRON 4 MG/2 ML VIAL IVPUSH PRN (07:54)
[2019-03-06] MEDS ORDERED: MORPHINE SULFATE 2 MG/ML VIAL IVPUSH PRN (07:59)
[2019-03-06] MEDS ORDERED: LACTATED RINGERS SOLUTION 1,000 ML IV SCH (08:00)
--- NOTE | 2019-03-06 10:36 | EKG ---
Test Reason : Blood Pressure : / mmHG Vent. Rate : 070 BPM Atrial Rate : 070 BPM P-R Int : 190 ms QRS Dur : 088 ms QT Int : 420 ms P-R-T Axes : 056 029 042 degrees QTc Int : 453 ms NORMAL SINUS RHYTHM NORMAL ECG WHEN COMPARED WITH ECG OF 29-JAN-2018 22:19, NO SIGNIFICANT CHANGE WAS FOUND Confirmed by SIMONE STEWART MD ([id number]) on 03/06/2019 10:36:45 AM Referred By: Confirmed By:SIMONE STEWART MD
[2019-03-06 11:02] VITALS: BMI 22.6
[2019-03-06] MEDS: ENOXAPARIN NA (PORCINE) 40 MG/0.4 ML DISP.SYRIN SQ SCH (11:42)
--- NOTE | 2019-03-06 15:34 | PN ---
Teaching Attending Note Name of Resident: Leann Benitez ATTENDING PHYSICIAN STATEMENT I saw and evaluated the patient. I reviewed the resident's note and discussed the case with the resident. I agree with the resident's findings and plan as documented. SUBJECTIVE: Patient is a 63 y/o female with PMHx of HLD and multiple episodes of diverticulitis (last one was in november 2017) presents to the ED with acute onset LLQ pain. she had a colonoscopy a few months ago with dr. hartman which was normal. she denies any fevers,chills, recent travel or sick contacts OBJECTIVE: Vital Signs Temperature 97.8 F 03/06/19 14:38 Pulse Rate 62 03/06/19 14:38 Respiratory Rate 20 03/06/19 14:38 Blood Pressure 109/62 03/06/19 14:38 O2 Sat by Pulse Oximetry (%) 97 03/06/19 07:54 GENERAL: The patient is awake, alert, and fully oriented, in no acute distress. HEAD: Normal with no signs of trauma. EYES: PERRL, extraocular movements intact, sclera anicteric, conjunctiva clear. No ptosis. ENT: Ears normal, nares patent, oropharynx clear without exudates, moist mucous membranes. NECK: Trachea midline, full range of motion, supple. LUNGS: Breath sounds equal, clear to auscultation bilaterally, no wheezes, no crackles, no accessory muscle use. HEART: Regular rate and rhythm, S1, S2 without murmur, rub or gallop. ABDOMEN: difuse tenderness LLQ > RLQ , mild distention, normoactive bowel sounds, no guarding, no rebound, no hepatosplenomegaly, no masses. EXTREMITIES: 2+ pulses, warm, well-perfused, no edema. NEUROLOGICAL: Cranial nerves II through XII grossly intact. Normal speech, gait not observed. PSYCH: Normal mood, normal affect. SKIN: Warm, dry, normal turgor, no rashes or lesions noted CBCD WBC 19.7 K/mm3 (4.0-10.0) H 03/06/19 04:39 RBC 4.63 M/mm3 (3.60-5.2) 03/06/19 04:39 Hgb 13.8 GM/dL (10.7-15.3) 03/06/19 04:39 Hct 41.3 % (32.4-45.2) 03/06/19 04:39 MCV 89.2 fl (80-96) 03/06/19 04:39 MCHC 33.4 g/dl (32.0-36.0) 03/06/19 04:39 RDW 14.1 % (11.6-15.6) 03/06/19 04:39 Plt Count 256 K/MM3 (134-434) D 03/06/19 04:39 MPV 9.7 fl (7.5-11.1) 03/06/19 04:39 CMP Sodium 139 mmol/L (136-145) 03/06/19 04:44 Potassium 4.3 mmol/L (3.5-5.1) 03/06/19 04:44 Chloride 105 mmol/L (98-107) 03/06/19 04:44 Carbon Dioxide 27 mmol/L (21-32) 03/06/19 04:44 Anion Gap 7 MMOL/L (8-16) L 03/06/19 04:44 BUN 18.1 mg/dL (7-18) H 03/06/19 04:44 Creatinine 0.7 mg/dL (0.55-1.3) 03/06/19 04:44 Random Glucose 106 mg/dL (74-106) 03/06/19 04:44 Calcium 10.2 mg/dL (8.5-10.1) H 03/06/19 04:44 Total Bilirubin 0.3 mg/dL (0.2-1) 03/06/19 04:44 AST 23 U/L (15-37) 03/06/19 04:44 ALT 31 U/L (13-61) 03/06/19 04:44 Alkaline Phosphatase 179 U/L (45-117) H 03/06/19 04:44 Total Protein 7.5 g/dl (6.4-8.2) 03/06/19 04:44 Albumin 3.9 g/dl (3.4-5.0) 03/06/19 04:44 Current Medications Generic Name Dose Route Start Last Admin Trade Name Freq PRN Reason Stop Dose Admin Enoxaparin Sodium 40 mg 03/06/19 10:00 03/06/19 11:42 Lovenox - SQ 40 mg DAILY NICOLE Administration Metronidazole 500 mg in 100 mls @ 100 mls/hr 03/06/19 14:00 03/06/19 13:26 Flagyl 500mg Premixed Ivpb - IVPB 100 mls/hr Q8H-IV NICOLE Administration Levofloxacin 500 mg in 100 mls @ 100 mls/hr 03/07/19 10:00 Levaquin 500 Mg Premixed Ivpb - IVPB DAILY NICOLE Protocol Sodium Chloride 1,000 mls @ 125 mls/hr 03/06/19 15:30 Normal Saline - IV 03/07/19 23:29 ASDIR NICOLE Morphine Sulfate 2 mg 03/06/19 07:59 03/06/19 11:41 Morphine Sulfate IVPUSH 2 mg Q6H PRN Administration PAIN LEVEL 4 - 6 Ondansetron HCl 4 mg 03/06/19 07:54 Zofran Injection IVPUSH Q6H PRN NAUSEA Home Medications Medication Instructions Recorded Atorvastatin Ca [Lipitor] 10 mg PO HS 12/07/17 ASSESSMENT AND PLAN: Patient is a 63 y/o female with PMHx of HLD with multiple episodes of diverticulitis (last one being in november 2017) presents to the ED with acute onset LLQ pain and was admitted with acute diverticulitis on CT scan. # Acute diverticulitis : will start on IV Flagyl/Rocephin continue, GI consult Dr. Archer , IVF , morphine continue #HLD: will c/w lipitor 10 HS DVT PPX: lovenox
[2019-03-06] MEDS: MORPHINE SULFATE 2 MG/ML VIAL IVPUSH PRN ×2 (16:25→20:29)
[2019-03-06] MEDS: SODIUM CHLORIDE 1,000 ML IV SCH (16:25)
[2019-03-06 16:28] LABS: PH,URINE 5.5 (5.0-8.0); URINE APPEARANCE CLEAR; URINE BILIRUBIN NEGATIVE (NEGATIVE); URINE COLOR YELLOW; URINE GLUCOSE (UA) NEGATIVE (NEGATIVE); URINE KETONE NEGATIVE (NEGATIVE); URINE LEUK ESTERASE NEGATIVE (NEGATIVE); URINE NITRITE NEGATIVE (NEGATIVE); URINE PROTEIN NEGATIVE (NEGATIVE); URINE UROBILINOGEN 0.2 mg/dL (0.2-1.0)
--- NOTE | 2019-03-06 16:52 | CON.GI ---
Consult Consult Specialty:: GI Referred by:: Hospitalist service Reason for Consultation:: Diverticulitis - History of Present Illness Chief Complaint: LLQ abdominal pain and constipation since yesterday. Pt well known to me from multiple episodes of diverticulitis and also recurrent C. difficile, requiring prolonged treatment with tapering courses of Vancomycin p.o. Last episode of clinical diverticulitis was in August; no antibiotic was given and it resolved spontaneously. This episode is obviously more severe with more severe pain and a WBC of 19.7K. History of Present Illness: see chief complaint - History Source History Provided By: Patient Limitations to Obtaining History: No Limitations - Past Medical History Cardio/Vascular: Yes: Hyperlipdemia Gastrointestinal: Yes: Diverticulitis, Other (recurrent C. difficile colitis) - Past Surgical History Past Surgical History: Yes: Hysterectomy (RAVI/BSO) - Alcohol/Substance Use Hx Alcohol Use: No History of Substance Use: reports: None - Smoking History Smoking history: Never smoked Have you smoked in the past 12 months: Yes Aproximately how many cigarettes per day: 5 - Social History Usual Living Arrangement: With Spouse ADL: Independent Occupation: Works for [employer] History of Recent Travel: No Home Medications - Allergies Allergies/Adverse Reactions: Allergies Allergy/AdvReac Type Severity Reaction Status Date / Time No Known Allergies Allergy Verified 03/06/19 04:33 - Home Medications Home Medications: Ambulatory Orders Atorvastatin Ca [Lipitor] 20 mg PO HS 12/07/17 Family Disease History - Family Disease History Family Disease History: Other: Father (: 76: CAD/MA), Mother (: 80: fall with intracranial bleed), Brother (None), Sister (1, alive: healthy), Son ( None), Daughter (None) Physical Exam-GI Vital Signs: Vital Signs Temperature 97.8 F 03/06/19 14:38 Pulse Rate 62 03/06/19 14:38 Respiratory Rate 20 03/06/19 14:38 Blood Pressure 109/62 03/06/19 14:38 O2 Sat by Pulse Oximetry (%) 97 03/06/19 07:54 ...Palpate: Yes: Tenderness (Markedly tender LLQ.) Labs: CBC, BMP 03/06/19 04:39 03/06/19 04:44 INR, PTT INR 0.93 (0.83-1.09) 03/06/19 04:44 Imaging - Results Cat Scan: Report Reviewed, Image Reviewed (Agree with interpretation of acute sigmoid diverticulitis without abscess formation.) Assessment/Plan Recurrent diverticulitis. This may be her 5th episode in the past 2 years and her second hospitalization for this condition. Her last hospitalization resulted in a months-long dillon with C. difficile before it was finally eradicated. She remains at extremely high risk for recurrent C difficile now that she is back on broad-spectrum antibiotics, but given her elevated WBC and obvious marked tenderness, I agree that she needs antibiotic treatment now. I would, however, opt to minimize the duration of treatment as much as possible, perhaps to 5 days of antibiotics if she shows improvement. I have also suggested to her that, after she has recovered fully, we consider an elective sigmoid resection.
[2019-03-07] MEDS: SODIUM CHLORIDE 1,000 ML IV SCH (01:58)
[2019-03-07] MEDS: MORPHINE SULFATE 2 MG/ML VIAL IVPUSH PRN ×4 (02:28→20:42)
[2019-03-07 08:09] LABS: BASO % 0.8 % (0-2.0); EOS % 3.7 % (0-4.5); HEMATOCRIT 33.6 % (32.4-45.2); HEMOGLOBIN 11.2 GM/dL (10.7-15.3); LYMPH % 18.5 % (8-40); MCHC 33.5 g/dl (32.0-36.0); MEAN CELL VOLUME 89.7 fl (80-96); MEAN PLT VOLUME 9.3 fl (7.5-11.1); MONO % 8.2 % (3.8-10.2); NEUT % 68.8 % (42.8-82.8); PLATELET COUNT 171 K/MM3 (134-434); RBC 3.74 M/mm3 (3.60-5.2); RDW 14.1 % (11.6-15.6); WHITE BLOOD COUNT 7.6 K/mm3 (4.0-10.0)
[2019-03-07 08:36] LABS: BILIRUBIN,TOTAL 0.7 mg/dL (0.2-1); BLOOD UREA NITROGEN 7.1 mg/dL (7-18); CALCIUM 8.3 mg/dL (8.5-10.1); CREATININE 0.5 mg/dL (0.55-1.3); MAGNESIUM 2.2 mg/dL (1.8-2.4); PHOSPHOROUS 2.9 mg/dL (2.5-4.9); POTASSIUM 3.8 mmol/L (3.5-5.1); TOT PROT 5.7 g/dl (6.4-8.2)
[2019-03-07] MEDS: ENOXAPARIN NA (PORCINE) 40 MG/0.4 ML DISP.SYRIN SQ SCH (09:01)
--- NOTE | 2019-03-07 14:38 | PN ---
Progress Note (short form) - Note Progress Note: Much less pain today. WBC down to normal range; abdomen soft but still with some LLQ tenderness. Not as severe as yesterday,though. Will begin clear liquids tonight. If tolerated and WBC still low tomorrow could advance to full liquid diet and aim for discharge 03/09.
--- NOTE | 2019-03-07 15:09 | PN ---
Physical Exam: SUBJECTIVE: Patient seen and examined by the bedside, AOx3. OBJECTIVE: Vital Signs Period Temp Pulse Resp BP Sys/[place] Pulse Ox Last 24 Hr 97.7 F-98.7 F 65-67 18-86 110-138/63-86 97 GENERAL: The patient is awake, alert, and fully oriented, in no acute distress. HEAD: Normal with no signs of trauma. EYES: PERRL, extraocular movements intact, sclera anicteric, conjunctiva clear. No ptosis. ENT: Ears normal, nares patent, oropharynx clear without exudates, moist mucous membranes. NECK: Trachea midline, full range of motion, supple. LUNGS: Breath sounds equal, clear to auscultation bilaterally, no wheezes, no crackles, no accessory muscle use. HEART: Regular rate and rhythm, S1, S2 without murmur, rub or gallop. ABDOMEN: Slightly distended, soft, tenderness in LLQ EXTREMITIES: 2+ pulses, warm, well-perfused, no edema. NEUROLOGICAL: Cranial nerves II through XII grossly intact. Normal speech, gait not observed. PSYCH: Normal mood, normal affect. SKIN: Warm, dry, normal turgor, no rashes or lesions noted Laboratory Results - last 24 hr 03/06/19 03/06/19 03/07/19 12:03 21:18 07:04 WBC 7.6 RBC 3.74 Hgb 11.2 Hct 33.6 D MCV 89.7 MCH 30.0 MCHC 33.5 RDW 14.1 Plt Count 171 D MPV 9.3 Absolute Neuts (auto) 5.3 Neutrophils % 68.8 Lymphocytes % 18.5 D Monocytes % 8.2 Eosinophils % 3.7 D Basophils % 0.8 Nucleated RBC % 0 Sodium Potassium Chloride Carbon Dioxide Anion Gap BUN Creatinine Est GFR (CKD-EPI)AfAm Est GFR (CKD-EPI)NonAf POC Glucometer 90 Random Glucose Calcium Phosphorus Magnesium Total Bilirubin AST ALT Alkaline Phosphatase Total Protein Albumin Urine Color Yellow Urine Appearance Clear Urine pH 5.5 Ur Specific [place] 1.016 Urine Protein Negative Urine Glucose (UA) Negative Urine Ketones Negative Urine Blood Negative Urine Nitrite Negative Urine Bilirubin Negative Urine Urobilinogen 0.2 Ur Leukocyte Esterase Negative 03/07/19 07:04 WBC RBC Hgb Hct MCV MCH MCHC RDW Plt Count MPV Absolute Neuts (auto) Neutrophils % Lymphocytes % Monocytes % Eosinophils % Basophils % Nucleated RBC % Sodium 141 Potassium 3.8 Chloride 108 H Carbon Dioxide 27 Anion Gap 6 L BUN 7.1 Creatinine 0.5 L Est GFR (CKD-EPI)AfAm 119.38 Est GFR (CKD-EPI)NonAf 103.00 POC Glucometer Random Glucose 82 Calcium 8.3 L Phosphorus 2.9 Magnesium 2.2 Total Bilirubin 0.7 AST 17 ALT 21 Alkaline Phosphatase 132 H Total Protein 5.7 L Albumin 3.0 L Urine Color Urine Appearance Urine pH Ur Specific [place] Urine Protein Urine Glucose (UA) Urine Ketones Urine Blood Urine Nitrite Urine Bilirubin Urine Urobilinogen Ur Leukocyte Esterase Active Medications Generic Name Dose Route Start Last Admin Trade Name Freq PRN Reason Stop Dose Admin Enoxaparin Sodium 40 mg 03/06/19 10:00 03/07/19 09:01 Lovenox - SQ 40 mg DAILY NICOLE Administration Metronidazole 500 mg in 100 mls @ 100 mls/hr 03/06/19 14:00 03/07/19 09:01 Flagyl 500mg Premixed Ivpb - IVPB 100 mls/hr Q8H-IV NICOLE Administration Levofloxacin 500 mg in 100 mls @ 100 mls/hr 03/07/19 10:00 03/07/19 09:01 Levaquin 500 Mg Premixed Ivpb - IVPB 100 mls/hr DAILY NICOLE Administration Protocol Sodium Chloride 1,000 mls @ 125 mls/hr 03/06/19 15:30 03/07/19 01:58 Normal Saline - IV 03/07/19 23:29 125 mls/hr ASDIR NICOLE Administration Morphine Sulfate 2 mg 03/06/19 15:37 03/07/19 09:00 Morphine Sulfate IVPUSH 2 mg Q4H PRN Administration PAIN LEVEL 4 - 6 Ondansetron HCl 4 mg 03/06/19 07:54 Zofran Injection IVPUSH Q6H PRN NAUSEA ASSESSMENT/PLAN: 63 YO F with PMH significant for HLD and 3 previous episodes of diverticulitis ( last one being in November 2017). She presented to the ER with LLQ pain. The pain began after she had a soft BM Monday evening. It was sudden in onset, has been constant, 10/10 in intensity, described as a sharp pain, not radiating anywhere , with no aggravating or relieving factors. ER course was notable for: (1) WBC 19.2 T98.0 (2) CT abdomen:focal sigmoid inflammation consistent w/ mild diverticulitis (3) Ceftriaxone/flagyl/ morphine (x3) #Diverticulitis - CT Abdomen: sigmoid inflammation consistent w/ diverticulitis - GI Dr. Joyce: shorter (5 day) abx course due to high risk C Diff, discuss elective sigmoid resection after recovery, will advance to clears tonight - Levaquin 500, Flagyl 500mg - Zofran PRN for nausea, Morphine 2mg q6H PRN - Last colonoscopy 6 months ago, polyps, F/U due - N/S@125mls/hr #HLD - continue home med Lipitor 10mg once off NPO #FEN -monitor electrolytes -NPO, will advance to clears tonight DVT PPX: lovenox 40 Visit type - Emergency Visit Emergency Visit: Yes ED Registration Date: 03/06/19 Care time: The patient presented to the Emergency Department on the above date and was hospitalized for further evaluation of their emergent condition. - New Patient This patient is new to me today: Yes Date on this admission: 03/07/19 - Critical Care Critical Care patient: No - Discharge Referral Referred to [facility] Med P.C.: No ATTENDING PHYSICIAN STATEMENT I saw and evaluated the patient. I reviewed the resident's note and discussed the case with the resident. I agree with the resident's findings and plan as documented. SUBJECTIVE: OBJECTIVE: ASSESSMENT AND PLAN:
--- NOTE | 2019-03-07 19:55 | PN ---
Teaching Attending Note Name of Resident: Clint Stuart ATTENDING PHYSICIAN STATEMENT I saw and evaluated the patient. I reviewed the resident's note and discussed the case with the resident. I agree with the resident's findings and plan as documented. SUBJECTIVE: PaTIENT IS feeling better improving OBJECTIVE: Vital Signs Temperature 98.5 F 03/07/19 19:35 Pulse Rate 68 03/07/19 19:35 Respiratory Rate 19 03/07/19 19:35 Blood Pressure 140/76 03/07/19 19:35 O2 Sat by Pulse Oximetry (%) 97 03/06/19 22:00 GENERAL: The patient is awake, alert, and fully oriented, in no acute distress. HEAD: Normal with no signs of trauma. EYES: PERRL, extraocular movements intact, sclera anicteric, conjunctiva clear. No ptosis. ENT: Ears normal, nares patent, oropharynx clear without exudates, moist mucous membranes. NECK: Trachea midline, full range of motion, supple. LUNGS: Breath sounds equal, clear to auscultation bilaterally, no wheezes, no crackles, no accessory muscle use. HEART: Regular rate and rhythm, S1, S2 without murmur, rub or gallop. ABDOMEN: difuse tenderness improving LLQ > RLQ , mild distention, normoactive bowel sounds, no guarding, no rebound, no hepatosplenomegaly, no masses. EXTREMITIES: 2+ pulses, warm, well-perfused, no edema. NEUROLOGICAL: Cranial nerves II through XII grossly intact. Normal speech, gait not observed. PSYCH: Normal mood, normal affect. SKIN: Warm, dry, normal turgor, no rashes or lesions noted CBCD WBC 7.6 K/mm3 (4.0-10.0) 03/07/19 07:04 RBC 3.74 M/mm3 (3.60-5.2) 03/07/19 07:04 Hgb 11.2 GM/dL (10.7-15.3) 03/07/19 07:04 Hct 33.6 % (32.4-45.2) D 03/07/19 07:04 MCV 89.7 fl (80-96) 03/07/19 07:04 MCHC 33.5 g/dl (32.0-36.0) 03/07/19 07:04 RDW 14.1 % (11.6-15.6) 03/07/19 07:04 Plt Count 171 K/MM3 (134-434) D 03/07/19 07:04 MPV 9.3 fl (7.5-11.1) 03/07/19 07:04 CMP Sodium 141 mmol/L (136-145) 03/07/19 07:04 Potassium 3.8 mmol/L (3.5-5.1) 03/07/19 07:04 Chloride 108 mmol/L (98-107) H 03/07/19 07:04 Carbon Dioxide 27 mmol/L (21-32) 03/07/19 07:04 Anion Gap 6 MMOL/L (8-16) L 03/07/19 07:04 BUN 7.1 mg/dL (7-18) 03/07/19 07:04 Creatinine 0.5 mg/dL (0.55-1.3) L 03/07/19 07:04 Random Glucose 82 mg/dL (74-106) 03/07/19 07:04 Calcium 8.3 mg/dL (8.5-10.1) L 03/07/19 07:04 Total Bilirubin 0.7 mg/dL (0.2-1) 03/07/19 07:04 AST 17 U/L (15-37) 03/07/19 07:04 ALT 21 U/L (13-61) 03/07/19 07:04 Alkaline Phosphatase 132 U/L (45-117) H 03/07/19 07:04 Total Protein 5.7 g/dl (6.4-8.2) L 03/07/19 07:04 Albumin 3.0 g/dl (3.4-5.0) L 03/07/19 07:04 Current Medications Generic Name Dose Route Start Last Admin Trade Name Freq PRN Reason Stop Dose Admin Enoxaparin Sodium 40 mg 03/06/19 10:00 03/07/19 09:01 Lovenox - SQ 40 mg DAILY NICOLE Administration Metronidazole 500 mg in 100 mls @ 100 mls/hr 03/06/19 14:00 03/07/19 17:54 Flagyl 500mg Premixed Ivpb - IVPB 100 mls/hr Q8H-IV NICOLE Administration Levofloxacin 500 mg in 100 mls @ 100 mls/hr 03/07/19 10:00 03/07/19 09:01 Levaquin 500 Mg Premixed Ivpb - IVPB 100 mls/hr DAILY NICOLE Administration Protocol Sodium Chloride 1,000 mls @ 125 mls/hr 03/06/19 15:30 03/07/19 01:58 Normal Saline - IV 03/07/19 23:29 125 mls/hr ASDIR NICOLE Administration Morphine Sulfate 2 mg 03/06/19 15:37 03/07/19 15:51 Morphine Sulfate IVPUSH 2 mg Q4H PRN Administration PAIN LEVEL 4 - 6 Ondansetron HCl 4 mg 03/06/19 07:54 Zofran Injection IVPUSH Q6H PRN NAUSEA Home Medications Medication Instructions Recorded Atorvastatin Ca [Lipitor] 20 mg PO HS 12/07/17 CT scan: reviewed ASSESSMENT AND PLAN: Patient is a 63yo female with with PMH significant for HLD and 3 previous episodes of diverticulitis (last one being in November 2017). She presented to the ER with LLQ pain and was staeted on IV antibiotics. # Acute Diverticulitis on Flagyl and rocephin continue improving #HLD: will c/w lipitor 10 HS DVT PPX: lovenox
[2019-03-08] MEDS: MORPHINE SULFATE 2 MG/ML VIAL IVPUSH PRN ×4 (00:39→21:10)
[2019-03-08 08:52] LABS: BASO % 0.6 % (0-2.0); EOS % 4.7 % (0-4.5); HEMATOCRIT 37.7 % (32.4-45.2); HEMOGLOBIN 12.7 GM/dL (10.7-15.3); LYMPH % 15.6 % (8-40); MCH 30.1 pg (25.7-33.7); MCHC 33.8 g/dl (32.0-36.0); MEAN PLT VOLUME 9.2 fl (7.5-11.1); MONO % 8.5 % (3.8-10.2); NEUT % 70.6 % (42.8-82.8); PLATELET COUNT 209 K/MM3 (134-434); RBC 4.23 M/mm3 (3.60-5.2); RDW 13.7 % (11.6-15.6); WHITE BLOOD COUNT 7.2 K/mm3 (4.0-10.0)
[2019-03-08 09:12] LABS: BLOOD UREA NITROGEN 6.7 mg/dL (7-18); CREATININE 0.5 mg/dL (0.55-1.3); POTASSIUM 3.8 mmol/L (3.5-5.1)
[2019-03-08] MEDS: ENOXAPARIN NA (PORCINE) 40 MG/0.4 ML DISP.SYRIN SQ SCH (09:30)
--- NOTE | 2019-03-08 11:12 | PN ---
Physical Exam: SUBJECTIVE: Patient seen and examined by the bedside, AOx3. OBJECTIVE: Vital Signs Period Temp Pulse Resp BP Sys/Talamantes Pulse Ox Last 24 Hr 97.7 F-98.5 F 60-70 18-19 123-155/75-80 98 GENERAL: The patient is awake, alert, and fully oriented, in no acute distress. HEAD: Normal with no signs of trauma. EYES: PERRL, extraocular movements intact, sclera anicteric, conjunctiva clear. No ptosis. ENT: Ears normal, nares patent, oropharynx clear without exudates, moist mucous membranes. NECK: Trachea midline, full range of motion, supple. LUNGS: Breath sounds equal, clear to auscultation bilaterally, no wheezes, no crackles, no accessory muscle use. HEART: Regular rate and rhythm, S1, S2 without murmur, rub or gallop. ABDOMEN: Distended, soft, tenderness in LLQ, hyperactive bowel sounds EXTREMITIES: 2+ pulses, warm, well-perfused, no edema. NEUROLOGICAL: Cranial nerves II through XII grossly intact. Normal speech, gait not observed. PSYCH: Normal mood, normal affect. SKIN: Warm, dry, normal turgor, no rashes or lesions noted Laboratory Results - last 24 hr 03/08/19 03/08/19 08:00 08:00 WBC 7.2 RBC 4.23 Hgb 12.7 Hct 37.7 MCV 89.0 MCH 30.1 MCHC 33.8 RDW 13.7 Plt Count 209 D MPV 9.2 Absolute Neuts (auto) 5.1 Neutrophils % 70.6 Lymphocytes % 15.6 Monocytes % 8.5 Eosinophils % 4.7 H Basophils % 0.6 Nucleated RBC % 0 Sodium 140 Potassium 3.8 Chloride 104 Carbon Dioxide 27 Anion Gap 9 BUN 6.7 L Creatinine 0.5 L Est GFR (CKD-EPI)AfAm 119.38 Est GFR (CKD-EPI)NonAf 103.00 Random Glucose 96 Calcium 9.0 Active Medications Generic Name Dose Route Start Last Admin Trade Name Freq PRN Reason Stop Dose Admin Enoxaparin Sodium 40 mg 03/06/19 10:00 03/08/19 09:30 Lovenox - SQ 40 mg DAILY NICOLE Administration Metronidazole 500 mg in 100 mls @ 100 mls/hr 03/06/19 14:00 08/16/19 09:30 Flagyl 500mg Premixed Ivpb - IVPB 100 mls/hr Q8H-IV NICOLE Administration Levofloxacin 500 mg in 100 mls @ 100 mls/hr 03/07/19 10:00 03/08/19 09:30 Levaquin 500 Mg Premixed Ivpb - IVPB 100 mls/hr DAILY NICOLE Administration Protocol Morphine Sulfate 2 mg 03/06/19 15:37 03/08/19 10:44 Morphine Sulfate IVPUSH 2 mg Q4H PRN Administration PAIN LEVEL 4 - 6 Ondansetron HCl 4 mg 03/06/19 07:54 Zofran Injection IVPUSH Q6H PRN NAUSEA ASSESSMENT/PLAN: 63 YO F with PMH significant for HLD and 3 previous episodes of diverticulitis. She presented to the ER with sudden onset LLQ pain and was admitted for suspected diverticulitis. #Diverticulitis - Ab Xay: No free air - CT Abdomen: sigmoid inflammation consistent w/ diverticulitis - Pain reduced significantly - Started on clears, tolerating well, has passed gas but no BM - GI Dr. Joyce: shorter (5 day) abx course due to high risk C Diff, possible sigmoid resection post d/c, clears diet - Levaquin 500 Day 2, Flagyl 500mg Day 2 - Zofran PRN Q4, Morphine 2mg Q6 - Last colonoscopy 6 months ago, polyps, F/U due #HLD - continue home med Lipitor 10mg once on regular diet #FEN -monitor electrolytes -Clear liquid diet #DVT PPX -Lovenox 40 Visit type - Emergency Visit Emergency Visit: Yes ED Registration Date: 03/06/19 Care time: The patient presented to the Emergency Department on the above date and was hospitalized for further evaluation of their emergent condition. - New Patient This patient is new to me today: No - Critical Care Critical Care patient: No - Discharge Referral Referred to [facility] Med P.C.: No ATTENDING PHYSICIAN STATEMENT I saw and evaluated the patient. I reviewed the resident's note and discussed the case with the resident. I agree with the resident's findings and plan as documented. SUBJECTIVE: OBJECTIVE: ASSESSMENT AND PLAN:
--- NOTE | 2019-03-08 15:45 | PN ---
Teaching Attending Note Name of Resident: Clint Stuart ATTENDING PHYSICIAN STATEMENT I saw and evaluated the patient. I reviewed the resident's note and discussed the case with the resident. I agree with the resident's findings and plan as documented. SUBJECTIVE: Patient continues to feel better but feels nauseas on IV flagyl OBJECTIVE: Vital Signs Temperature 98.1 F 03/08/19 14:40 Pulse Rate 65 03/08/19 14:40 Respiratory Rate 20 03/08/19 14:40 Blood Pressure 138/69 03/08/19 14:40 O2 Sat by Pulse Oximetry (%) 95 03/08/19 10:00 GENERAL: The patient is awake, alert, and fully oriented, in no acute distress. HEAD: Normal with no signs of trauma. EYES: PERRL, extraocular movements intact, sclera anicteric, conjunctiva clear. No ptosis. ENT: Ears normal, nares patent, oropharynx clear without exudates, moist mucous membranes. NECK: Trachea midline, full range of motion, supple. LUNGS: Breath sounds equal, clear to auscultation bilaterally, no wheezes, no crackles, no accessory muscle use. HEART: Regular rate and rhythm, S1, S2 without murmur, rub or gallop. ABDOMEN: difuse tenderness improving LLQ > RLQ , mild distention, normoactive bowel sounds, no guarding, no rebound, no hepatosplenomegaly, no masses. EXTREMITIES: 2+ pulses, warm, well-perfused, no edema. NEUROLOGICAL: Cranial nerves II through XII grossly intact. Normal speech, gait not observed. PSYCH: Normal mood, normal affect. SKIN: Warm, dry, normal turgor, no rashes or lesions noted CBCD WBC 7.2 K/mm3 (4.0-10.0) 03/08/19 08:00 RBC 4.23 M/mm3 (3.60-5.2) 03/08/19 08:00 Hgb 12.7 GM/dL (10.7-15.3) 03/08/19 08:00 Hct 37.7 % (32.4-45.2) 03/08/19 08:00 MCV 89.0 fl (80-96) 03/08/19 08:00 MCHC 33.8 g/dl (32.0-36.0) 03/08/19 08:00 RDW 13.7 % (11.6-15.6) 03/08/19 08:00 Plt Count 209 K/MM3 (134-434) D 03/08/19 08:00 MPV 9.2 fl (7.5-11.1) 03/08/19 08:00 CMP Sodium 140 mmol/L (136-145) 03/08/19 08:00 Potassium 3.8 mmol/L (3.5-5.1) 03/08/19 08:00 Chloride 104 mmol/L (98-107) 03/08/19 08:00 Carbon Dioxide 27 mmol/L (21-32) 03/08/19 08:00 Anion Gap 9 MMOL/L (8-16) 03/08/19 08:00 BUN 6.7 mg/dL (7-18) L 03/08/19 08:00 Creatinine 0.5 mg/dL (0.55-1.3) L 03/08/19 08:00 Random Glucose 96 mg/dL (74-106) 03/08/19 08:00 Calcium 9.0 mg/dL (8.5-10.1) 03/08/19 08:00 Total Bilirubin 0.7 mg/dL (0.2-1) 03/07/19 07:04 AST 17 U/L (15-37) 03/07/19 07:04 ALT 21 U/L (13-61) 03/07/19 07:04 Alkaline Phosphatase 132 U/L (45-117) H 03/07/19 07:04 Total Protein 5.7 g/dl (6.4-8.2) L 03/07/19 07:04 Albumin 3.0 g/dl (3.4-5.0) L 03/07/19 07:04 Current Medications Generic Name Dose Route Start Last Admin Trade Name Freq PRN Reason Stop Dose Admin Enoxaparin Sodium 40 mg 03/06/19 10:00 03/08/19 09:30 Lovenox - SQ 40 mg DAILY NICOLE Administration Metronidazole 500 mg in 100 mls @ 100 mls/hr 03/06/19 14:00 03/08/19 09:30 Flagyl 500mg Premixed Ivpb - IVPB 100 mls/hr Q8H-IV NICOLE Administration Levofloxacin 500 mg in 100 mls @ 100 mls/hr 03/07/19 10:00 03/08/19 09:30 Levaquin 500 Mg Premixed Ivpb - IVPB 100 mls/hr DAILY NICOLE Administration Protocol Morphine Sulfate 2 mg 03/06/19 15:37 03/08/19 10:44 Morphine Sulfate IVPUSH 2 mg Q4H PRN Administration PAIN LEVEL 4 - 6 Ondansetron HCl 4 mg 03/06/19 07:54 Zofran Injection IVPUSH Q6H PRN NAUSEA Home Medications Medication Instructions Recorded RX: Atorvastatin Ca [Lipitor] 20 mg PO HS 12/07/17 CT scan: reviewed ASSESSMENT AND PLAN: Patient is a 63yo female with with PMH significant for HLD and 3 previous episodes of diverticulitis (last one being in November 2017). She presented to the ER with LLQ pain and was staeted on IV antibiotics. # Acute Diverticulitis on Flagyl and rocephin continue, improving #HLD: will c/w lipitor 10 HS DVT PPX: lovenox
--- NOTE | 2019-03-08 20:21 | PN ---
Progress Note (short form) - Note Progress Note: Pt had BM this a.m.; was nauseated this afternoon after dose of metronidazole was given but tolerated full liquid dinner. Abdomen still somewhat tender in LLQ , no peritoneal signs. WBC 7200 this a.m. To advance to low residue diet.
[2019-03-09] MEDS: MORPHINE SULFATE 2 MG/ML VIAL IVPUSH PRN ×2 (01:14→09:42)
[2019-03-09 07:26] LABS: HEMATOCRIT 36.9 % (32.4-45.2); HEMOGLOBIN 12.6 GM/dL (10.7-15.3); MCH 30.1 pg (25.7-33.7); MCHC 34.2 g/dl (32.0-36.0); MEAN CELL VOLUME 88.1 fl (80-96); MEAN PLT VOLUME 9.1 fl (7.5-11.1); PLATELET COUNT 221 K/MM3 (134-434); RBC 4.19 M/mm3 (3.60-5.2); RDW 14.3 % (11.6-15.6); WHITE BLOOD COUNT 7.3 K/mm3 (4.0-10.0)
[2019-03-09 07:51] LABS: ALBUMIN 3.5 g/dl (3.4-5.0); BILIRUBIN,TOTAL 0.3 mg/dL (0.2-1); BLOOD UREA NITROGEN 6.8 mg/dL (7-18); CALCIUM 9.1 mg/dL (8.5-10.1); CREATININE 0.5 mg/dL (0.55-1.3); POTASSIUM 4.1 mmol/L (3.5-5.1); TOT PROT 6.8 g/dl (6.4-8.2)
[2019-03-09] MEDS: ENOXAPARIN NA (PORCINE) 40 MG/0.4 ML DISP.SYRIN SQ SCH (09:42)
--- NOTE | 2019-03-09 11:03 | PN ---
Progress Note (short form) - Note Progress Note: WBC remains normal. Pt having BMs and passing flatus, tolerated full liquid diet. She did ask for morphine 2 hours ago, however. Now she says she has minimal discomfort but of course she still has morphine on board. To get low residue diet. Would continue IV antibiotic now but if this evening she remains in minimal discomfort could switch to p.o. with possible discharge tomorrow. Will defer to hospitalist service.
--- NOTE | 2019-03-09 18:22 | PN ---
Progress Note (short form) - Note Progress Note: Patient is feeling better with no acute distress, required morphin iv x 1 dose today. Vital Signs Temperature 97.8 F 03/09/19 15:14 Pulse Rate 62 03/09/19 15:14 Respiratory Rate 20 03/09/19 15:14 Blood Pressure 152/78 03/09/19 15:14 O2 Sat by Pulse Oximetry (%) 95 03/09/19 10:00 GENERAL: The patient is awake, alert, and fully oriented, in no acute distress. HEAD: Normal with no signs of trauma. EYES: PERRL, extraocular movements intact, sclera anicteric, conjunctiva clear. No ptosis. ENT: Ears normal, nares patent, oropharynx clear without exudates, moist mucous membranes. NECK: Trachea midline, full range of motion, supple. LUNGS: Breath sounds equal, clear to auscultation bilaterally, no wheezes, no crackles, no accessory muscle use. HEART: Regular rate and rhythm, S1, S2 without murmur, rub or gallop. ABDOMEN: diffuse tenderness improving LLQ > RLQ , mild distention, normoactive bowel sounds, no guarding, no rebound, no hepatosplenomegaly, no masses. EXTREMITIES: 2+ pulses, warm, well-perfused, no edema. NEUROLOGICAL: Cranial nerves II through XII grossly intact. Normal speech, gait not observed. PSYCH: Normal mood, normal affect. SKIN: Warm, dry, normal turgor, no rashes or lesions noted CBCD WBC 7.3 K/mm3 (4.0-10.0) 03/09/19 06:39 RBC 4.19 M/mm3 (3.60-5.2) 03/09/19 06:39 Hgb 12.6 GM/dL (10.7-15.3) 03/09/19 06:39 Hct 36.9 % (32.4-45.2) 03/09/19 06:39 MCV 88.1 fl (80-96) 03/09/19 06:39 MCHC 34.2 g/dl (32.0-36.0) 03/09/19 06:39 RDW 14.3 % (11.6-15.6) 03/09/19 06:39 Plt Count 221 K/MM3 (134-434) 03/09/19 06:39 MPV 9.1 fl (7.5-11.1) 03/09/19 06:39 CMP Sodium 140 mmol/L (136-145) 03/09/19 06:39 Potassium 4.1 mmol/L (3.5-5.1) 03/09/19 06:39 Chloride 106 mmol/L (98-107) 03/09/19 06:39 Carbon Dioxide 28 mmol/L (21-32) 03/09/19 06:39 Anion Gap 6 MMOL/L (8-16) L 03/09/19 06:39 BUN 6.8 mg/dL (7-18) L 03/09/19 06:39 Creatinine 0.5 mg/dL (0.55-1.3) L 03/09/19 06:39 Random Glucose 104 mg/dL (74-106) 03/09/19 06:39 Calcium 9.1 mg/dL (8.5-10.1) 03/09/19 06:39 Total Bilirubin 0.3 mg/dL (0.2-1) 03/09/19 06:39 AST 29 U/L (15-37) 03/09/19 06:39 ALT 25 U/L (13-61) 03/09/19 06:39 Alkaline Phosphatase 134 U/L (45-117) H 03/09/19 06:39 Total Protein 6.8 g/dl (6.4-8.2) 03/09/19 06:39 Albumin 3.5 g/dl (3.4-5.0) 03/09/19 06:39 Current Medications Generic Name Dose Route Start Last Admin Trade Name Nehal PRN Reason Stop Dose Admin Enoxaparin Sodium 40 mg 03/06/19 10:00 03/09/19 09:42 Lovenox - SQ 40 mg DAILY NICOLE Administration Metronidazole 500 mg in 100 mls @ 100 mls/hr 03/06/19 14:00 03/09/19 17:55 Flagyl 500mg Premixed Ivpb - IVPB 100 mls/hr Q8H-IV NICOLE Administration Levofloxacin 500 mg in 100 mls @ 100 mls/hr 03/07/19 10:00 03/09/19 09:41 Levaquin 500 Mg Premixed Ivpb - IVPB 100 mls/hr DAILY NICOLE Administration Protocol Ondansetron HCl 4 mg 03/06/19 07:54 Zofran Injection IVPUSH Q6H PRN NAUSEA Home Medications Medication Instructions Recorded Atorvastatin Ca [Lipitor] 20 mg PO HS 12/07/17 CT scan: reviewed ASSESSMENT AND PLAN: Patient is a 63yo female with with PMH significant for HLD and 3 previous episodes of diverticulitis (last one being in November 2017). She presented to the ER with LLQ pain and was started on IV antibiotics. # Acute Diverticulitis on Flagyl and rocephin continue, possible dc in am if stable #HLD: will c/w lipitor 10 HS DVT PPX: lovenox possible dcin am Visit type - Emergency Visit Emergency Visit: Yes ED Registration Date: 03/06/19 Care time: The patient presented to the Emergency Department on the above date and was hospitalized for further evaluation of their emergent condition. - New Patient This patient is new to me today: No - Critical Care Critical Care patient: No - Discharge Referral Referred to [facility] Med P.C.: No
[2019-03-10 06:03] VITALS: BP 120/67; PULSE 61; TEMP 98.2
[2019-03-10] MEDS: ENOXAPARIN NA (PORCINE) 40 MG/0.4 ML DISP.SYRIN SQ SCH (09:19)
--- NOTE | 2019-03-10 10:09 | PN ---
Teaching Attending Note Name of Resident: Zaina Hoang ATTENDING PHYSICIAN STATEMENT I saw and evaluated the patient. I reviewed the resident's note and discussed the case with the resident. I agree with the resident's findings and plan as documented. SUBJECTIVE: Patient is feeling better today, would like to go home. OBJECTIVE: Vital Signs Temperature 98.2 F 03/10/19 05:59 Pulse Rate 61 03/10/19 05:59 Respiratory Rate 20 03/10/19 05:59 Blood Pressure 120/67 03/10/19 05:59 O2 Sat by Pulse Oximetry (%) 95 03/09/19 22:00 GENERAL: The patient is awake, alert, and fully oriented, in no acute distress. HEAD: Normal with no signs of trauma. EYES: PERRL, extraocular movements intact, sclera anicteric, conjunctiva clear. No ptosis. ENT: Ears normal, nares patent, oropharynx clear without exudates, moist mucous membranes. NECK: Trachea midline, full range of motion, supple. LUNGS: Breath sounds equal, clear to auscultation bilaterally, no wheezes, no crackles, no accessory muscle use. HEART: Regular rate and rhythm, S1, S2 without murmur, rub or gallop. ABDOMEN:soft, NT, mild distention (her norm), normoactive bowel sounds, no guarding, no rebound, no hepatosplenomegaly, no masses. EXTREMITIES: 2+ pulses, warm, well-perfused, no edema. NEUROLOGICAL: Cranial nerves II through XII grossly intact. Normal speech, gait not observed. PSYCH: Normal mood, normal affect. SKIN: Warm, dry, normal turgor, no rashes or lesions noted CBCD WBC 7.3 K/mm3 (4.0-10.0) 03/09/19 06:39 RBC 4.19 M/mm3 (3.60-5.2) 03/09/19 06:39 Hgb 12.6 GM/dL (10.7-15.3) 03/09/19 06:39 Hct 36.9 % (32.4-45.2) 03/09/19 06:39 MCV 88.1 fl (80-96) 03/09/19 06:39 MCHC 34.2 g/dl (32.0-36.0) 03/09/19 06:39 RDW 14.3 % (11.6-15.6) 03/09/19 06:39 Plt Count 221 K/MM3 (134-434) 03/09/19 06:39 MPV 9.1 fl (7.5-11.1) 03/09/19 06:39 CMP Sodium 140 mmol/L (136-145) 03/09/19 06:39 Potassium 4.1 mmol/L (3.5-5.1) 03/09/19 06:39 Chloride 106 mmol/L (98-107) 03/09/19 06:39 Carbon Dioxide 28 mmol/L (21-32) 03/09/19 06:39 Anion Gap 6 MMOL/L (8-16) L 03/09/19 06:39 BUN 6.8 mg/dL (7-18) L 03/09/19 06:39 Creatinine 0.5 mg/dL (0.55-1.3) L 03/09/19 06:39 Random Glucose 104 mg/dL (74-106) 03/09/19 06:39 Calcium 9.1 mg/dL (8.5-10.1) 03/09/19 06:39 Total Bilirubin 0.3 mg/dL (0.2-1) 03/09/19 06:39 AST 29 U/L (15-37) 03/09/19 06:39 ALT 25 U/L (13-61) 03/09/19 06:39 Alkaline Phosphatase 134 U/L (45-117) H 03/09/19 06:39 Total Protein 6.8 g/dl (6.4-8.2) 03/09/19 06:39 Albumin 3.5 g/dl (3.4-5.0) 03/09/19 06:39 Current Medications Generic Name Dose Route Start Last Admin Trade Name Freq PRN Reason Stop Dose Admin Enoxaparin Sodium 40 mg 03/06/19 10:00 03/10/19 09:19 Lovenox - SQ 40 mg DAILY NICOLE Administration Metronidazole 500 mg in 100 mls @ 100 mls/hr 03/06/19 14:00 03/10/19 01:06 Flagyl 500mg Premixed Ivpb - IVPB 100 mls/hr Q8H-IV NICOLE Administration Levofloxacin 500 mg in 100 mls @ 100 mls/hr 03/07/19 10:00 03/10/19 09:19 Levaquin 500 Mg Premixed Ivpb - IVPB 100 mls/hr DAILY NICOLE Administration Protocol Ondansetron HCl 4 mg 03/06/19 07:54 Zofran Injection IVPUSH Q6H PRN NAUSEA Home Medications Medication Instructions Recorded Atorvastatin Ca [Lipitor] 20 mg PO HS 12/07/17 Lactobacillus Acidophilus [Bacid -] 1 each PO BID #60 capsule 03/10/19 Levofloxacin [Levaquin] 500 mg PO DAILY #10 tablet 03/10/19 CT scan: reviewed ASSESSMENT AND PLAN: Patient is a 63yo female with with PMH significant for HLD and 3 previous episodes of diverticulitis (last one being in November 2017). She presented to the ER with LLQ pain and was started on IV antibiotics. # Acute Diverticulitis on Flagyl and levaquin , will discharge her on oral levaquin for 5 more days. Bacid probiotics were ordered as well. also given information on a diet, the things to avoid. #HLD: will c/w lipitor 10 HS DVT PPX: lovenox dc patient home, follow up with Dr. Joyce in a week
--- NOTE | 2019-03-10 10:33 | DS ---
Physical Exam: SUBJECTIVE: Patient seen and examined at bedside. No acute events overnight. OBJECTIVE: Vital Signs Period Temp Pulse Resp BP Sys/Talamantes Pulse Ox Last 24 Hr 97.4 F-98.2 F 54-62 19-20 120-159/67-85 95 PHYSICAL EXAM GENERAL: The patient is awake, alert, and fully oriented, in no acute distress. HEAD: Normal with no signs of trauma. EYES: PERRL, extraocular movements intact, sclera anicteric, conjunctiva clear. No ptosis. ENT: Ears normal, nares patent, oropharynx clear without exudates, moist mucous membranes. NECK: Trachea midline, full range of motion, supple. LUNGS: Breath sounds equal, clear to auscultation bilaterally, no wheezes, no crackles, no accessory muscle use. HEART: Regular rate and rhythm, S1, S2 without murmur, rub or gallop. ABDOMEN: Distended, soft, tenderness in LLQ, hyperactive bowel sounds EXTREMITIES: 2+ pulses, warm, well-perfused, no edema. NEUROLOGICAL: Cranial nerves II through XII grossly intact. Normal speech, gait not observed. PSYCH: Normal mood, normal affect. SKIN: Warm, dry, normal turgor, no rashes or lesions noted LABS HOSPITAL COURSE: Date of Admission:03/06/19 63F with PMH significant for HLD and 3 previous episodes of diverticulitis ( last one being in November 2017) presented to the ER with LLQ abd pain. CTAP showed findings consistent with acute sigmoid diverticulitis w/o abscess formation. As a result, pt was given IV Ceftriaxone/Flagyl. She was seen and evaluated by GI with recommendation to continue IV abx. Throughout her hospital stay, her symptoms of bloating and abdominal pain improved and pt remained afebrile. Diet was advanced and well tolerated by patient. She was discharged home and advised to continue taking PO Levaquin, Flagyl, and Bacid. She was also instructed to follow up with her PCP and GI doctor as an outpatient in 1 week for routine evaluation. Date of Discharge: 03/10/19 Minutes to complete discharge: 35 Discharge Summary Reason For Visit: DIVERTICULITIS OF LARGE INTESTINE Condition: Improved - Instructions Diet, Activity, Other Instructions: You were seen in the hospital for complaints of abdominal pain. You were found to have acute diverticulitis. In the hospital, you were evaluated by the GI doctor with recommendation for IV antibiotics. Throughout your hospital stay, your abdominal symptoms improved. You are being discharged home. Medications We have made the following adjustments to your medications: Please START taking Levaquin 500 mg once a day for 5 more days. Your last dose will be Feb. Please START taking Flagyl 500 mg every 8 hours for 5 more days. You last dose will be Feb. Do Not drink alcohol with Flagyl or with your antibiotics Please START taking Bacid twice a day. You may continue taking the rest of your home medications as directed. Recommendations Please eat a low fiber diet. STOP eating sugar, grain, wheat, flour, broccoli, cauliflower, milk or dairy products for now. Follow Up Please follow up with your GI doctor, Dr. Joyce, within 1 week. If you experience worsening abdominal pain, persistent fever/chills, nausea, vomiting, or other associated symptoms, please proceed to your nearest emergency room immediately. Referrals: Jonas Joyce MD [Staff Physician] - 1 Week Disposition: HOME - Home Medications Comprehensive Discharge Medication List: Ambulatory Orders Atorvastatin Ca [Lipitor] 20 mg PO HS 12/07/17 Lactobacillus Acidophilus [Bacid -] 1 each PO BID #60 capsule 03/10/19 Levofloxacin [Levaquin] 500 mg PO DAILY #10 tablet 03/10/19 Metronidazole 500 mg PO Q8H #15 tablet 03/10/19 This patient is new to me today: No Emergency Visit: Yes ED Registration Date: 03/06/19 Care time: The patient presented to the Emergency Department on the above date and was hospitalized for further evaluation of their emergent condition. Critical Care patient: No - Discharge Referral Referred to [facility] Med P.C.: No ATTENDING PHYSICIAN STATEMENT I saw and evaluated the patient. I reviewed the resident's note and discussed the case with the resident. I agree with the resident's findings and plan as documented. SUBJECTIVE: OBJECTIVE: ASSESSMENT AND PLAN:
== END 2019-03-10 11:06 | disposition home or self-care (01) | DRG 392 ==
LOC: JER 03:49 → JERBED 06:11 → J6S 10:32
PROVIDERS: ADMIT Internal Medicine; ATTEND Internal Medicine
DX: K57.32 Diverticulitis of large intestine without perforation or abscess without bleeding (principal); E78.5 Hyperlipidemia, unspecified
CPT/HCPCS: 36415; 74018-TC-FY; 74176-TC; 80048; 80053; 81003; 82962; 83690; 83735; 84100; 85025; 85027; 85610; 86140; 93005; 93010; 99284-25; J0131; J7030

== ENCOUNTER 2019-06-25 09:00 | Inpatient (IN) | payer OTHER ==
--- NOTE | 2019-06-14 10:32 | HP ---
DATE OF ADMISSION: 06/26/2019 DATE OF DICTATION: 04/18/2019 Patient to be admitted to the [facility] in [place] in the near future; date to be determined. HISTORY: This is a 63-year-old woman who apparently has been suffering with intermittent bouts of diverticulitis since 2016. According to the patient and her GI doctor, she had 2 bouts in 2016, which were managed as an outpatient with no hospitalization and no imaging. In November 2017, she presented with extensive diverticulitis of the left colon, which required hospitalization and antibiotic management. That course of illness was unfortunately associated with a subsequent C. difficile which required rather long antibiotic management to ultimately get the patient to improve. Unfortunately, she went on to develop similar symptoms in May 2018. Again, it was felt she likely had diverticulosis. However, a CT scan completed June 17, 2018, demonstrated diverticulosis, but with no obvious diverticulitis. More recently, in February of this year, she presented again with similar complaints, and CT evaluation completed March 06, 2019, did, indeed, demonstrate an acute sigmoid diverticulitis which was uncomplicated. She was managed with antibiotics again and improved. At this juncture, request has been made by the GI service for elective resection given the recurrent bouts of left-sided diverticulitis, requiring hospitalization on 2 occasions and associated with subsequent C. difficile after long-term antibiotic management. According to the patient, she had a colonoscopy completed by her GI doctor in August of this year, which was unremarkable other than her diverticular disease. PAST MEDICAL HISTORY: Significant only for GERD otherwise. No history of heart disease, hypertension, diabetes, respiratory, renal, or hepatic insufficiency. PAST SURGICAL HISTORY: Significant for hysterectomy in 1996 for benign disease. ALLERGIES: None known. CURRENT MEDICATIONS: Atorvastatin only. Patient does take probiotics. SOCIAL HISTORY: Positive tobacco, approximately 5 cigarettes daily. Alcohol: Socially every other week. FAMILY HISTORY: Father with a history of vascular disease. Mother with history of "thinning of the blood," details not provided. REVIEW OF SYSTEMS: Otherwise nil. PHYSICAL EXAMINATION: Abdomen: Soft, nontender with no palpable findings. Low transverse scar noted consistent with prior hysterectomy. IMPRESSION: Recurrent sigmoid diverticulitis. PLAN: Patient admitted to the hospital for formal bowel prep in anticipation of laparoscopic resection of her sigmoid, low anterior anastomosis. Patient understands that she may require an open procedure. She also understands she may require a temporary diversion. Indications, alternatives, possible complications of the intended procedure were reviewed with the patient. Consent obtained. Patient to be seen preoperatively by her PMD. Please refer to those notes for those medical details. MILLY PENG M.D. LINDA/[id number]
[2019-06-25] MEDS ORDERED: PEG 3350/NA SULF BICARB CL/KCL 4000 ML SOLN.RECON PO ONE (12:45)
[2019-06-25] MEDS ORDERED: LACTATED RINGERS SOLUTION 1,000 ML IV SCH (17:45)
[2019-06-25] MEDS ORDERED: ERTAPENEM SODIUM 1 GM in SODIUM CHLORIDE 50 ML IVPB ONE (17:45)
[2019-06-25] MEDS ORDERED: PT OWN MED DRAWER 7, Y5N ONE (18:41)
[2019-06-25 19:04] VITALS: BMI 22.3
[2019-06-26] MEDS ORDERED: MIDAZOLAM HCL 2 MG/2 ML SINGLE DOSE VIAL ONE (12:30)
[2019-06-26] MEDS ORDERED: PROPOFOL 20 ML ONE (12:30)
[2019-06-26] MEDS ORDERED: KETAMINE HCL 200 MG/20 ML VIAL ONE (12:31)
[2019-06-26] MEDS ORDERED: ROCURONIUM BROMIDE 50 MG/5 ML SYRINGE ONE (12:32)
[2019-06-26] MEDS ORDERED: ceFAZolin SODIUM 1 GM VIAL IVPB ONE (12:45)
[2019-06-26] MEDS ORDERED: DEXAMETHASONE SOD PHOSPHATE 4 MG/1 ML VIAL ONE (12:47)
[2019-06-26] MEDS ORDERED: BUPIVACAINE HCL/PF 0.25% (2.5MG/ML) 10 ML VIAL ONE (12:47)
[2019-06-26] MEDS ORDERED: SODIUM CHLORIDE 0.9% P/F 10 ML VIAL IJ ONE (13:04)
[2019-06-26] MEDS ORDERED: VECURONIUM BROMIDE 10 MG VIAL ONE (13:04)
[2019-06-26] MEDS ORDERED: ERTAPENEM SODIUM 1 GM VIAL ONE (13:08)
[2019-06-26] MEDS ORDERED: ERTAPENEM SODIUM 1 GM VIAL IVPB ONE (13:10)
[2019-06-26] MEDS ORDERED: ACETAMINOPHEN 325 MG TABLET (FP) PO PRN (13:13)
[2019-06-26] MEDS ORDERED: morphine SULFATE 4 MG/ML VIAL IVPB PRN (13:13)
[2019-06-26] MEDS ORDERED: BUPIVACAINE HCL/PF 0.25% (2.5MG/ML) 10 ML VIAL IJ ONE (13:42)
[2019-06-26] MEDS ORDERED: DEXAMETHASONE SOD PHOSPHATE 4 MG/1 ML VIAL NR ONE (13:43)
[2019-06-26] MEDS ORDERED: LIDOCAINE HCL/PF 2% SDV 5ML VIAL ONE (14:13)
[2019-06-26] MEDS ORDERED: DEXMEDETOMIDINE HCL 200 MCG/2 ML IVPB ONE (14:39)
[2019-06-26] MEDS ORDERED: GlUCAGON HUMAN RECOMBINANT 1 MG/VIAL ONE ×2 (14:58→15:45)
[2019-06-26] MEDS ORDERED: PROMETHAZINE HCL 25 MG/1 ML VIAL IVPUSH PRN (15:05)
[2019-06-26] MEDS ORDERED: ONDANSETRON 4 MG/2 ML VIAL IVPUSH PRN (15:05)
[2019-06-26] MEDS ORDERED: GLYCOPYRROLATE 0.2 MG/1 ML VIAL ONE (16:12)
[2019-06-26] MEDS ORDERED: ONDANSETRON 4 MG/2 ML VIAL ONE (17:15)
[2019-06-26] MEDS: ONDANSETRON 4 MG/2 ML VIAL IVPUSH PRN (17:21)
[2019-06-26] MEDS ORDERED: LACTATED RINGERS SOLUTION 1,000 ML IV SCH (17:24)
[2019-06-26] MEDS ORDERED: PROMETHAZINE HCL 25 MG/1 ML VIAL ONE (17:48)
[2019-06-26] MEDS ORDERED: HYDROmorphone HCl 2 MG/ML VIAL ONE (18:28)
[2019-06-26] MEDS: HYDROmorphone HCL CARPU-JECT 2 MG/1 ML DISP.SYRIN IVPUSH ONE ×4 (18:30→19:20)
[2019-06-26] MEDS ORDERED: HYDROmorphone HCl 2 MG/ML VIAL IVPB PRN (19:06)
[2019-06-26] MEDS: morphine SULFATE 4 MG/ML VIAL IVPB PRN (21:10)
[2019-06-26] MEDS: D5-1/2NS+20 MEQ KCL - 20 MEQ/1,000 ML INFUS.BAG IV SCH (21:22)
[2019-06-27] MEDS: morphine SULFATE 4 MG/ML VIAL IVPB PRN ×6 (00:24→22:26)
--- NOTE | 2019-06-27 01:18 | OP ---
DATE OF OPERATION: 06/26/2019 PREOPERATIVE DIAGNOSIS: Sigmoid diverticulosis/recurrent diverticulitis. POSTOPERATIVE DIAGNOSIS: Sigmoid diverticulosis/recurrent diverticulitis. PROCEDURE: Laparoscopic resection of sigmoid colon and low anterior anastomosis/extensive lysis of adhesions/anal dilatation/rigid sigmoidoscopy/peritoneal lavage. OPERATING SURGEON: Garcia Posada M.D. ENTRY LEVEL SALES CONSULTANT: Eber Zurita M.D. ANESTHESIA: General. ANESTHESIOLOGIST: Chepe Cruz M.D. HISTORY: This is a 63-year-old woman who has had 5 bouts of sigmoid diverticulitis. She also went on to develop C difficile secondary to antibiotic use. Request made by [facility] for surgical management of her disease at the level of the left colon. Patient with significant diverticulosis. Indications, alternatives, possible complications reviewed. Consent obtained. DESCRIPTION OF PROCEDURE: With the patient in supine position, the lower extremities in stirrups, the abdomen and peritoneum were prepped and draped in sterile fashion using chlorhexidine. A small incision was made just above the umbilicus through which a Veress needle was placed into the abdominal cavity. The abdominal cavity was insufflated to an adequate pressure and volume using CO2 gas. Veress needle was removed. An 11-mm trocar port placed through the supraumbilical wound. The camera lens passed through this port, and the intraabdominal cavity visualized. Multiple adhesions were noted in the lower abdomen consistent with the prior hysterectomy. Both a 12-mm port as well as a 5-mm port were placed on the right lower quadrant. Two 5-mm ports were placed in the left lower quadrant. Graspers were inserted and the abdomen was explored. In order to complete the case and explore the abdomen, rather extensive lysis of adhesions ensued between the small bowel and the anterior abdominal wall, which was felt to be the result of a prior hysterectomy. After rather extensive lysis of adhesions, the sigmoid colon was then examined. It was quite adherent, and there was obvious disease just at the peritoneal reflection, which likely represented the site of recurrent bouts. However, there were also a multitude of ticks more proximally extending up behind the descending colon. Retracting the sigmoid colon both anteriorly and laterally, the inferior mesenteric vascular bundle was identified and was divided using the LigaSure system. The allowed entry into the retroperitoneum on the left side. The left ureter was easily identified. With the ureter in plain view, the left mesocolon was divided in a caudal direction using the LigaSure. The colon was then retracted medially, and the multitude of adhesions between the distal sigmoid colon and wall were divided under direct vision, becoming ultimately free of the distal large bowel. In order to facilitate resection of large ticks more proximally at the descending colon, the splenic flexure was taken down under direct vision, in order to ultimately facilitate a primary low anterior anastomosis. The proximal mesocolon was divided under direct vision as well, and the entire left colon was mobilized. Directing our attention distally, the proximal rectum was mobilized up to normal appearing tissue with no inflammatory adhesions. The rectum was taken just below the peritoneal reflection using an Endo JOHNNA stapler single fire. After the stapler was fired, the rectal stump was visualized and the staple line was intact throughout its length. The pneumoperitoneum was then allowed to escape and the supraumbilical trocar site incision was extended inferiorly creating a defect to allow delivery of the left colon. A wound protector was placed through the wound. The left colon was then delivered and exteriorized. Then 1 mL of glucagon was given intravenously. A generous portion of the left colon was excised in order to encompass a couple of large ticks which contained obvious fecaliths more proximally at the level of the descending colon. Ultimately the specimen was delivered. Through the cut end of the descending colon, the anvil of the 28-mm EEA stapler was advanced proximally. A JOHNNA 80 was used to close the descending colon. Ultimately, the stapler along with its spike was advanced through the staple line. The spike was removed and passed off the table. A pursestring suture was placed at the base of the spike for integrity. Colon along with anvil in place was then returned to the abdominal cavity. Towel clamps were used to close the defect, and the abdomen was reinsufflated with an adequate pressure and volume using CO2 gas. Now going below, anal dilatation ensued. Rectal dilators were used to dilate the rectum serially. Ultimately, the 28-mm EEA stapler was advanced transanally to the level of the staple line at the level of the rectum. The spike was advanced under direct vision. The descending colon along with its mobilized distal transverse portion, was then advanced, and the anvil was attached to the transanal stapler under direct vision. Stapler was approximated. It was ultimately fired and removed. Two complete donuts of colon were identified after the stapler was removed, one at the proximal end, the other at the distal end. Under direct vision laparoscopically, the anastomosis was inspected and appeared to be intact. There appeared to be good blood supply at the level of the anastomosis. There was no significant disparity in lumen size between the descending colon and the rectum. There was no undue tension noted. Pelvis was then filled with saline. Rigid sigmoidoscope was placed in the rectum, and the left colon was insufflated under water on 3 separate occasions occluding the proximal portion of the descending colon. Anastomosis was allowed to distend under water, and there was no air leak noted on each of the 3 attempts. Ultimately the occlusion was released, and the air advanced easily through the anastomosis into the more proximal colon, demonstrating patency as well. The rigid sigmoidoscope was then advanced up the rectum, and the anastomosis was visualized from below without traversing the anastomosis itself. Again, inspection demonstrated an intact anastomosis. The rigid sigmoidoscope was reduced. Peritoneal lavage ensued. Adequate hemostasis ensured. A Stephen-Virk drain was placed in the pelvis and exited through one of the left lower quadrant 5-mm port sites after the port was removed. The drain was tacked to skin with 2-0 silk suture material. The small midline periumbilical incision which had been made for extraction of the specimen was then closed using interrupted 0 PDS sutures. The 12-mm port site in the right lower quadrant was closed using interrupted 0 PDS fascial sutures as well. All the port sites were then irrigated, and all the wounds were closed using a skin stapler. Needle, sponge, and instrument count correct. Estimated blood loss approximately 200 mL . Specimen portion of left colon. Implant none. Drains 1 BOZENA. Patient tolerated the procedure, and the procedure was terminated. Moreno CONWAY/[id number] cc: Jonas Joyce MD
[2019-06-27] MEDS: oxyCODONE HCL 5 MG TABLET PO PRN ×4 (01:30→21:31)
[2019-06-27] MEDS: D5-1/2NS+20 MEQ KCL - 20 MEQ/1,000 ML INFUS.BAG IV SCH ×3 (05:50→21:31)
[2019-06-27] MEDS: PANTOPRAZOLE SODIUM 40 MG VIAL IVPUSH SCH (09:31)
[2019-06-27] MEDS: ENOXAPARIN NA (PORCINE) 40 MG/0.4 ML DISP.SYRIN SQ SCH (09:31)
[2019-06-27] MEDS ORDERED: ERTAPENEM SODIUM 1 GM in SODIUM CHLORIDE 50 ML IVPB ONE (10:00)
[2019-06-27 10:12] LABS: BASO % 0.2 % (0-2.0); EOS % 0.1 % (0-4.5); HEMATOCRIT 34.1 % (32.4-45.2); HEMOGLOBIN 11.4 GM/dL (10.7-15.3); LYMPH % 8.5 % (8-40); MCH 29.1 pg (25.7-33.7); MCHC 33.4 g/dl (32.0-36.0); MEAN CELL VOLUME 87.2 fl (80-96); MEAN PLT VOLUME 8.8 fl (7.5-11.1); MONO % 10.4 % (3.8-10.2); NEUT % 80.8 % (42.8-82.8); PLATELET COUNT 166 K/MM3 (134-434); RBC 3.91 M/mm3 (3.60-5.2); RDW 14.4 % (11.6-15.6); WHITE BLOOD COUNT 14.5 K/mm3 (4.0-10.0)
[2019-06-27 10:31] LABS: BLOOD UREA NITROGEN 6.3 mg/dL (7-18); CALCIUM 8.5 mg/dL (8.5-10.1); CREATININE 0.5 mg/dL (0.55-1.3); MAGNESIUM 2.2 mg/dL (1.8-2.4); PHOSPHOROUS 3.3 mg/dL (2.5-4.9); POTASSIUM 4.1 mmol/L (3.5-5.1)
--- NOTE | 2019-06-27 14:45 | PN ---
Progress Note (short form) - Note Progress Note: surgery pt seen and examined. not oob yet. sore. no nausea. afebrile abd- soft, distended, incisional tenderness, jayce sero- sanguinous Laboratory Tests 06/27/19 06/27/19 09:53 09:53 WBC 14.5 H Potassium 4.1 Phosphorus 3.3 Magnesium 2.2 A/P 1) Pod#1- npo, ivf, bailey, jayce 2) pain - morphine, oxycodone, tylenol 3) prophylaxis- finish invanz, cont lovenox, protonix, spirometer, oob 4) leukocytosis- reactive. should resolve.
[2019-06-27] MEDS ORDERED: KETOROLAC TROMETHAMINE 15 MG/ML VIAL IVPUSH PRN (23:10)
[2019-06-28] MEDS ORDERED: KETOROLAC TROMETHAMINE 30 MG/1 ML VIAL IVPUSH PRN (05:58)
[2019-06-28] MEDS: D5-1/2NS+20 MEQ KCL - 20 MEQ/1,000 ML INFUS.BAG IV SCH ×2 (06:11→21:56)
[2019-06-28 07:34] LABS: BLOOD UREA NITROGEN 7.7 mg/dL (7-18); CALCIUM 8.5 mg/dL (8.5-10.1); CREATININE 0.5 mg/dL (0.55-1.3); MAGNESIUM 2.1 mg/dL (1.8-2.4); PHOSPHOROUS 2.3 mg/dL (2.5-4.9); POTASSIUM 4.1 mmol/L (3.5-5.1)
[2019-06-28 07:35] LABS: BASO % 0.2 % (0-2.0); EOS % 1.6 % (0-4.5); HEMATOCRIT 32.7 % (32.4-45.2); LYMPH % 12.8 % (8-40); MCH 29.6 pg (25.7-33.7); MCHC 33.8 g/dl (32.0-36.0); MEAN CELL VOLUME 87.7 fl (80-96); MEAN PLT VOLUME 9.3 fl (7.5-11.1); MONO % 11.6 % (3.8-10.2); NEUT % 73.8 % (42.8-82.8); PLATELET COUNT 145 K/MM3 (134-434); RBC 3.72 M/mm3 (3.60-5.2); RDW 14.8 % (11.6-15.6); WHITE BLOOD COUNT 9.7 K/mm3 (4.0-10.0)
[2019-06-28] MEDS ORDERED: WATER IVPB ONE (08:18)
[2019-06-28] MEDS ORDERED: DEXTROSE IVPB ONE (08:18)
[2019-06-28] MEDS ORDERED: SODIUM PHOSPHATE IVPB ONE (08:18)
[2019-06-28] MEDS: ENOXAPARIN NA (PORCINE) 40 MG/0.4 ML DISP.SYRIN SQ SCH (09:08)
[2019-06-28] MEDS: PANTOPRAZOLE SODIUM 40 MG VIAL IVPUSH SCH (09:39)
--- NOTE | 2019-06-28 12:08 | PN ---
Progress Note (short form) - Note Progress Note: surgery pt seen and examined. ambulating well. gas pain. having flatus afebrile abd- soft, less distended, incisional tenderness, jayce sero- sanguinous Laboratory Tests 06/28/19 06/28/19 06:42 06:42 WBC 9.7 Hgb 11.0 Phosphorus 2.3 L A/P 1) Pod#2- npo, ivf, bailey, jayce 2) pain - dilaudid, oxycodone, tylenol 3) prophylaxis- lovenox, protonix, spirometer, oob 4) leukocytosis- reactive. resolved 5) hypophosphatemia- will replace
[2019-06-28] MEDS: HYDROmorphone HCl 2 MG/ML VIAL IVPB PRN ×4 (12:31→23:10)
--- NOTE | 2019-06-28 15:55 | PATH ---
Surgical Pathology Report Patient Name: EVITA ORDONEZ [facility]. Rec. #: [id number] /Age/Gender: 1955 (Age: 63) / F Account: [id number] Location: 4 SO PEDS/ADOL Taken: 06/26/2019 Received: 06/27/2019 Reported: 06/28/2019 Physicians: Garcia Posada M.D. Specimen(s) Received SIGMOID COLON Clinical History Diverticulum of large intestine without perforation or abscess Final Diagnosis SIGMOID COLON, RESECTION: SEGMENT OF COLON WITH DIVERTICULOSIS. SURGICAL MARGINS ARE VIABLE. Electronically Signed Maria Del Carmen Cee M.D. Gross Description Received in formalin labeled "sigmoid colon," is a 20 cm length portion of colon with an undesignated suture at one end. The specimen displays 2 stapled mucosal margins and abundant attached pericolonic adipose tissue. The serosa is pink-matamoros and smooth. The mucosa is matamoros with normal folds. Sectioning reveals multiple uncomplicated diverticula and a thickened bowel wall. No mucosal masses are identified. Communications Clerk sections are submitted in 7 cassettes as follows: 1-mucosal margin with undesignated suture; 2-opposing mucosal margin; 6-2-[id number] diverticula. /06/27/201906/27/2019
[2019-06-29] MEDS: HYDROmorphone HCl 2 MG/ML VIAL IVPB PRN ×6 (02:20→22:22)
[2019-06-29 08:12] LABS: BASO % 0.2 % (0-2.0); EOS % 3.4 % (0-4.5); HEMATOCRIT 32.5 % (32.4-45.2); HEMOGLOBIN 11.1 GM/dL (10.7-15.3); LYMPH % 14.9 % (8-40); MCH 29.8 pg (25.7-33.7); MCHC 34.1 g/dl (32.0-36.0); MEAN CELL VOLUME 87.5 fl (80-96); MEAN PLT VOLUME 9.4 fl (7.5-11.1); MONO % 13.6 % (3.8-10.2); NEUT % 67.9 % (42.8-82.8); PLATELET COUNT 149 K/MM3 (134-434); RBC 3.71 M/mm3 (3.60-5.2); RDW 14.4 % (11.6-15.6); WHITE BLOOD COUNT 7.5 K/mm3 (4.0-10.0)
[2019-06-29 08:15] LABS: BLOOD UREA NITROGEN 3.8 mg/dL (7-18); CALCIUM 8.5 mg/dL (8.5-10.1); CREATININE 0.4 mg/dL (0.55-1.3); MAGNESIUM 1.9 mg/dL (1.8-2.4); PHOSPHOROUS 3.2 mg/dL (2.5-4.9); POTASSIUM 3.8 mmol/L (3.5-5.1)
[2019-06-29] MEDS: ENOXAPARIN NA (PORCINE) 40 MG/0.4 ML DISP.SYRIN SQ SCH (10:08)
[2019-06-29] MEDS: PANTOPRAZOLE SODIUM 40 MG VIAL IVPUSH SCH (10:08)
--- NOTE | 2019-06-29 11:03 | PN ---
Progress Note (short form) - Note Progress Note: surgery pt seen and examined. ambulating well. more flatus. afebrile abd- soft, still distended, less incisional tenderness, jayce sero- sanguinous Laboratory Tests Laboratory Tests 06/29/19 06/29/19 06:35 06:35 WBC 7.5 Phosphorus 3.2 A/P 1) Pod#3- npo, ivf, bailey, jayce 2) pain - dilaudid, oxycodone, tylenol 3) prophylaxis- lovenox, protonix, spirometer, oob 4) leukocytosis- reactive. resolved 5) hypophosphatemia- resolved
[2019-06-29] MEDS: ONDANSETRON 4 MG/2 ML VIAL IVPUSH PRN (12:04)
[2019-06-29] MEDS: D5-1/2NS+20 MEQ KCL - 20 MEQ/1,000 ML INFUS.BAG IV SCH (14:54)
[2019-06-30] MEDS: HYDROmorphone HCl 2 MG/ML VIAL IVPB PRN ×6 (01:35→19:44)
[2019-06-30] MEDS: ENOXAPARIN NA (PORCINE) 40 MG/0.4 ML DISP.SYRIN SQ SCH (09:06)
[2019-06-30] MEDS: PANTOPRAZOLE SODIUM 40 MG VIAL IVPUSH SCH (09:07)
--- NOTE | 2019-06-30 09:43 | PN ---
Progress Note (short form) - Note Progress Note: surgery pt seen and examined. still well. no bm afebrile abd- soft, less distended, nt, jayce serous labs pending A/P 1) Pod#4- clear ljiquids, stop ivf,d/c bailey, cont jayce 2) pain - dilaudid, oxycodone, tylenol 3) prophylaxis- lovenox, protonix, spirometer, oob 4) leukocytosis- reactive. resolved-pending 5) hypophosphatemia- resolved-pending
[2019-06-30 10:51] LABS: BASO % 0.4 % (0-2.0); HEMATOCRIT 35.1 % (32.4-45.2); HEMOGLOBIN 11.8 GM/dL (10.7-15.3); LYMPH % 15.3 % (8-40); MCH 29.7 pg (25.7-33.7); MCHC 33.6 g/dl (32.0-36.0); MEAN CELL VOLUME 88.2 fl (80-96); MEAN PLT VOLUME 9.2 fl (7.5-11.1); MONO % 11.3 % (3.8-10.2); PLATELET COUNT 196 K/MM3 (134-434); RBC 3.99 M/mm3 (3.60-5.2); RDW 14.2 % (11.6-15.6); WHITE BLOOD COUNT 9.3 K/mm3 (4.0-10.0)
[2019-06-30 11:16] LABS: BLOOD UREA NITROGEN 3.9 mg/dL (7-18); CALCIUM 8.7 mg/dL (8.5-10.1); CREATININE 0.4 mg/dL (0.55-1.3); MAGNESIUM 1.9 mg/dL (1.8-2.4); PHOSPHOROUS 3.2 mg/dL (2.5-4.9); POTASSIUM 4.2 mmol/L (3.5-5.1)
[2019-06-30] MEDS: D5-1/2NS+20 MEQ KCL - 20 MEQ/1,000 ML INFUS.BAG IV SCH (12:02)
[2019-06-30] MEDS: ONDANSETRON 4 MG/2 ML VIAL IVPUSH PRN (21:55)
[2019-07-01 06:48] LABS: BASO % 0.3 % (0-2.0); EOS % 4.3 % (0-4.5); HEMATOCRIT 31.5 % (32.4-45.2); HEMOGLOBIN 10.9 GM/dL (10.7-15.3); LYMPH % 14.4 % (8-40); MCH 29.9 pg (25.7-33.7); MCHC 34.5 g/dl (32.0-36.0); MEAN CELL VOLUME 86.6 fl (80-96); MEAN PLT VOLUME 8.8 fl (7.5-11.1); MONO % 12.9 % (3.8-10.2); NEUT % 68.1 % (42.8-82.8); PLATELET COUNT 182 K/MM3 (134-434); RBC 3.64 M/mm3 (3.60-5.2); WHITE BLOOD COUNT 7.1 K/mm3 (4.0-10.0)
[2019-07-01 07:03] LABS: BLOOD UREA NITROGEN 4.7 mg/dL (7-18); CREATININE 0.4 mg/dL (0.55-1.3); MAGNESIUM 1.7 mg/dL (1.8-2.4); PHOSPHOROUS 3.9 mg/dL (2.5-4.9); POTASSIUM 4.1 mmol/L (3.5-5.1)
[2019-07-01] MEDS: HYDROmorphone HCl 2 MG/ML VIAL IVPB PRN (07:55)
[2019-07-01] MEDS: ENOXAPARIN NA (PORCINE) 40 MG/0.4 ML DISP.SYRIN SQ SCH (09:13)
[2019-07-01] MEDS: PANTOPRAZOLE SODIUM 40 MG VIAL IVPUSH SCH (09:13)
[2019-07-01] MEDS ORDERED: MAGNESIUM OXIDE 400 MG TABLET (FP) PO ONE (16:25)
--- NOTE | 2019-07-01 16:53 | DS ---
DATE OF ADMISSION: 06/25/2019 DATE OF DISCHARGE: 07/01/2019 ADMITTING DIAGNOSIS: History of complicated diverticulitis. DISCHARGE DIAGNOSIS: History of complicated diverticulitis. BRIEF HISTORY: This is a 63-year-old female with previous complicated diverticulitis. She was admitted to [facility] on June 25. She underwent IV hydration and bowel preparation on June 26. She had reversal of her colostomy. Please reference Dr. Garcia Posada's operative report for further details. Postoperative course was uncomplicated. She received Dilaudid as needed for pain. Her ileus eventually resolved. At the time of her discharge, she is ambulating, voiding, passing gas, having bowel movements, and tolerating a liquid diet. She will go home with only Tylenol as needed for pain. She will resume her usual medications of Lipitor. At the time of her discharge, her white blood cell count is normal, and her chemistries are unremarkable with the exception of a mildly low magnesium, which will be supplemented. She is okay to shower, okay to drive. She will not lift more than 20 pounds. She will follow up with Dr. Posada in approximately 1 weeks' time, be evaluated for staple removal. She has had her Stephen-Virk drain removed at the time of discharge. Also, at the time of discharge, her pathology report is back, and it confirms diverticulosis without malignancy. DO EVER CAT/[id number]
[2019-07-01 18:10] VITALS: BP 144/76; PULSE 62; TEMP 97.4
[2019-07-02] MEDS ORDERED: MAGNESIUM CL 64 MG TABLET.SA PO ONE (13:17)
== END 2019-07-01 18:50 | disposition home or self-care (01) | DRG 331 ==
LOC: J4S 12:18
PROVIDERS: ADMIT Surgery; ATTEND Surgery
PROC: 0D7Q4ZZ Dilation of Anus, Percutaneous Endoscopic Approach (ICD-10-PCS; 2019-06-26)
PROC: 0DJD8ZZ Inspection of Lower Intestinal Tract, Via Natural or Artificial Opening Endoscopic (ICD-10-PCS; 2019-06-26)
PROC: 3E1M38Z Irrigation of Peritoneal Cavity using Irrigating Substance, Percutaneous Approach (ICD-10-PCS; 2019-06-26)
PROC: 0DTNFZZ Resection of Sigmoid Colon, Via Natural or Artificial Opening With Percutaneous Endoscopic Assistance (ICD-10-PCS; principal; 2019-06-26 10:00)
PROC: 0DNW4ZZ Release Peritoneum, Percutaneous Endoscopic Approach (ICD-10-PCS; 2019-06-26 10:00)
DX: K57.30 Diverticulosis of large intestine without perforation or abscess without bleeding (principal); K57.32 Diverticulitis of large intestine without perforation or abscess without bleeding; K66.0 Peritoneal adhesions (postprocedural) (postinfection); D72.829 Elevated white blood cell count, unspecified; E83.39 Other disorders of phosphorus metabolism
CPT/HCPCS: 36415; 74018-TC-FY; 80048; 83735; 84100; 85025; 86850; 86900; 86901; 88307-TC; 94760; 97116-GP; 97161-GP

== ENCOUNTER 2023-11-04 03:06 | Emergency (ER) | payer OTHER ==
[2023-11-04 03:16] VITALS: BMI 22.6
[2023-11-04] MEDS ORDERED: ACETAMINOPHEN INJECTION 100 ML IVPB ONE (04:15)
[2023-11-04] MEDS ORDERED: ONDANSETRON 4 MG/2 ML VIAL ONE (04:15)
[2023-11-04] MEDS: SODIUM CHLORIDE 0.9% 500 ML INFUS.BAG IV ONE (04:36)
[2023-11-04] MEDS: ACETAMINOPHEN 1000 MG/100 ML BAG IVPB ONE (04:37)
[2023-11-04] MEDS: ONDANSETRON 4 MG/2 ML VIAL IVPUSH ONE (04:37)
[2023-11-04 04:45] LABS: HEMATOCRIT 38.5 % (32.4-45.2); MCH 31.4 pg (25.7-33.7); MCHC 33.8 g/dl (32.0-36.0); MEAN PLT VOLUME 8.1 fl (7.5-11.1); PLATELET COUNT 156 10^3/uL (134-434); RBC 4.14 M/mm3 (3.60-5.2)
[2023-11-04 05:07] LABS: INR 0.83 (0.83-1.09); PROTHROMBIN TIME (PATIENT) 9.6 SEC (9.7-13.0)
[2023-11-04 05:18] LABS: MAGNESIUM 1.9 mg/dL (1.8-2.4)
[2023-11-04 05:19] LABS: CALCIUM 8.9 mg/dL (8.5-10.1)
[2023-11-04 05:20] LABS: ALBUMIN 3.2 g/dl (3.4-5.0); BLOOD UREA NITROGEN 26.5 mg/dL (7-18)
[2023-11-04 05:23] LABS: CREATININE 0.6 mg/dL (0.55-1.3)
[2023-11-04 05:24] LABS: BILIRUBIN,TOTAL 0.3 mg/dL (0.2-1); TOT PROT 6.4 g/dl (6.4-8.2)
[2023-11-04 05:44] VITALS: BP 120/90; PULSE 72; RESP 16
[2023-11-04 05:44] LABS: ANISOCYTOSIS 2+; MACROCYTOSIS 0
== END 2023-11-04 06:00 | disposition home or self-care (01) ==
LOC: JER 03:06
PROC: 3E033NZ Introduction of Analgesics, Hypnotics, Sedatives into Peripheral Vein, Percutaneous Approach (ICD-10-PCS; principal; 2023-11-04)
PROC: 3E033GC Introduction of Other Therapeutic Substance into Peripheral Vein, Percutaneous Approach (ICD-10-PCS; 2023-11-04)
DX: R53.1 Weakness (principal); R11.0 Nausea; R10.84 Generalized abdominal pain; M79.2 Neuralgia and neuritis, unspecified
CPT/HCPCS: 36415; 71045-TC-FY; 80053; 83690; 83735; 84100; 84484; 85025; 85610; 85730; 93005; 93010; 99285-25; J0131

== ENCOUNTER 2023-12-04 23:54 | Emergency (ER) | payer OTHER ==
[2023-12-05 00:01] VITALS: BMI 22.6
[2023-12-05] MEDS ORDERED: ACETAMINOPHEN INJECTION 100 ML IVPB ONE (00:41)
[2023-12-05] MEDS ORDERED: METOCLOPRAMIDE HCL INJECTION 10 MG/2 ML VIAL ONE (00:41)
[2023-12-05] MEDS: LACTATED RINGERS SOLUTION 1000 ML INFUS.BAG IV ONE (00:48)
[2023-12-05] MEDS: SODIUM CHLORIDE 1,000 ML IV SCH (00:48)
[2023-12-05] MEDS: ACETAMINOPHEN 1000 MG/100 ML BAG IVPB ONE (00:50)
[2023-12-05] MEDS: METOCLOPRAMIDE HCL INJECTION 10 MG/2 ML VIAL IVPB ONE (00:50)
[2023-12-05] MEDS: SODIUM CHLORIDE 0.9% 500 ML INFUS.BAG IV ONE (00:51)
[2023-12-05 00:56] VITALS: TEMP 97.4
[2023-12-05 00:56] LABS: BASO % 0.7 % (0-2.0); EOS % 1.9 % (0-4.5); HEMATOCRIT 29.8 % (32.4-45.2); HEMOGLOBIN 10.1 GM/dL (10.7-15.3); LYMPH % 48.2 % (8-40); MCH 31.8 pg (25.7-33.7); MCHC 33.9 g/dl (32.0-36.0); MEAN CELL VOLUME 93.5 fl (80-96); MEAN PLT VOLUME 8.5 fl (7.5-11.1); MONO % 8.7 % (3.8-10.2); NEUT % 40.5 % (42.8-82.8); PLATELET COUNT 126 10^3/uL (134-434); RBC 3.18 M/mm3 (3.60-5.2); RDW 15.4 % (11.6-15.6); WHITE BLOOD COUNT 4.2 K/mm3 (4.0-10.0)
[2023-12-05 01:16] LABS: ALBUMIN 3.2 g/dl (3.4-5.0); CALCIUM 7.9 mg/dL (8.5-10.1)
[2023-12-05 01:18] LABS: BLOOD UREA NITROGEN 15.8 mg/dL (7-18)
[2023-12-05 01:20] LABS: CREATININE 0.4 mg/dL (0.55-1.3)
[2023-12-05 01:21] LABS: TOT PROT 6.6 g/dl (6.4-8.2)
[2023-12-05 01:22] LABS: BILIRUBIN,TOTAL 0.4 mg/dL (0.2-1)
[2023-12-05] MEDS ORDERED: KETOROLAC TROMETHAMINE 15 MG/ML VIAL ONE (01:30)
[2023-12-05 01:31] LABS: URINE APPEARANCE CLEAR; URINE BILIRUBIN NEGATIVE (NEGATIVE); URINE COLOR YELLOW; URINE GLUCOSE (UA) NEGATIVE (NEGATIVE); URINE KETONE NEGATIVE (NEGATIVE); URINE LEUK ESTERASE NEGATIVE (NEGATIVE); URINE NITRITE NEGATIVE (NEGATIVE); URINE PROTEIN NEGATIVE (NEGATIVE); URINE UROBILINOGEN 0.2 mg/dL (0.2-1.0)
[2023-12-05] MEDS: KETOROLAC TROMETHAMINE 15 MG/ML VIAL IVPUSH ONE (01:37)
[2023-12-05 02:13] VITALS: BP 156/85; PULSE 63; RESP 18
== END 2023-12-05 02:14 | disposition home or self-care (01) ==
LOC: JER 23:54
PROC: 3E033NZ Introduction of Analgesics, Hypnotics, Sedatives into Peripheral Vein, Percutaneous Approach (ICD-10-PCS; principal; 2023-12-05)
PROC: 3E0333Z Introduction of Anti-inflammatory into Peripheral Vein, Percutaneous Approach (ICD-10-PCS; 2023-12-05)
PROC: 3E033GC Introduction of Other Therapeutic Substance into Peripheral Vein, Percutaneous Approach (ICD-10-PCS; 2023-12-05)
DX: R51.9 Headache, unspecified (principal); H53.149 Visual discomfort, unspecified; H53.8 Other visual disturbances
CPT/HCPCS: 36415; 70450-TC; 70496-TC; 70498-TC; 80053; 80061; 81003; 82550; 82962; 83036; 84484; 85025; 93005; 93010; 99285-25; J0131; Q9967

== ENCOUNTER 2024-02-18 20:42 | Emergency (ER) | payer OTHER, MEDICARE ==
[2024-02-18 20:46] VITALS: RESP 18; TEMP 97.9; BMI 22.6
[2024-02-18] MEDS ORDERED: METOCLOPRAMIDE HCL INJECTION 10 MG/2 ML VIAL ONE (21:22)
[2024-02-18] MEDS ORDERED: ACETAMINOPHEN INJECTION 100 ML IVPB ONE (21:22)
[2024-02-18] MEDS: SODIUM CHLORIDE 1,000 ML IV STA (21:32)
[2024-02-18] MEDS: ACETAMINOPHEN 1000 MG/100 ML BAG IVPB ONE (21:32)
[2024-02-18 21:35] LABS: INR 0.88 (0.83-1.09); PROTHROMBIN TIME (PATIENT) 10.2 SEC (9.7-13.0)
[2024-02-18 21:37] LABS: BASO % 0.8 % (0-2.0); EOS % 1.9 % (0-4.5); HEMATOCRIT 40.9 % (32.4-45.2); HEMOGLOBIN 13.9 GM/dL (10.7-15.3); LYMPH % 42.6 % (8-40); MCH 32.6 pg (25.7-33.7); MCHC 34.1 g/dl (32.0-36.0); MEAN CELL VOLUME 95.6 fl (80-96); MEAN PLT VOLUME 8.7 fl (7.5-11.1); MONO % 6.9 % (3.8-10.2); NEUT % 47.8 % (42.8-82.8); PLATELET COUNT 166 10^3/uL (134-434); RBC 4.28 M/mm3 (3.60-5.2); RDW 15.3 % (11.6-15.6); WHITE BLOOD COUNT 6.3 K/mm3 (4.0-10.0)
[2024-02-18 21:38] LABS: ACTIVATED PTT 28.2 SECONDS (25.2-36.5)
[2024-02-18] MEDS: METOCLOPRAMIDE HCL INJECTION 10 MG/2 ML VIAL IVPB ONE (21:43)
[2024-02-18 21:47] LABS: CALCIUM 8.7 mg/dL (8.5-10.1)
[2024-02-18 21:49] LABS: ALBUMIN 3.9 g/dl (3.4-5.0)
[2024-02-18 21:51] LABS: CREATININE 0.6 mg/dL (0.55-1.3)
[2024-02-18 21:53] LABS: BILIRUBIN,TOTAL 0.4 mg/dL (0.2-1); TOT PROT 7.6 g/dl (6.4-8.2)
[2024-02-18] MEDS ORDERED: ONDANSETRON 4 MG/2 ML VIAL ONE (22:14)
[2024-02-18] MEDS: ONDANSETRON 4 MG/2 ML VIAL IVPUSH ONE (22:18)
[2024-02-18 22:30] LABS: URINE APPEARANCE CLEAR; URINE BILIRUBIN NEGATIVE (NEGATIVE); URINE COLOR YELLOW; URINE GLUCOSE (UA) NEGATIVE (NEGATIVE); URINE KETONE NEGATIVE (NEGATIVE); URINE LEUK ESTERASE NEGATIVE (NEGATIVE); URINE NITRITE NEGATIVE (NEGATIVE); URINE PROTEIN NEGATIVE (NEGATIVE); URINE UROBILINOGEN 0.2 mg/dL (0.2-1.0)
[2024-02-18 22:39] VITALS: PULSE 76
[2024-02-18 23:34] VITALS: BP 159/75
== END 2024-02-18 23:38 | disposition home or self-care (01) ==
LOC: JER 20:42
PROC: 3E033NZ Introduction of Analgesics, Hypnotics, Sedatives into Peripheral Vein, Percutaneous Approach (ICD-10-PCS; principal; 2024-02-18)
PROC: 3E033GC Introduction of Other Therapeutic Substance into Peripheral Vein, Percutaneous Approach (ICD-10-PCS; 2024-02-18)
PROC: 3E033GC Introduction of Other Therapeutic Substance into Peripheral Vein, Percutaneous Approach (ICD-10-PCS; 2024-02-18)
PROC: 3E0337Z Introduction of Electrolytic and Water Balance Substance into Peripheral Vein, Percutaneous Approach (ICD-10-PCS; 2024-02-18)
DX: R51.9 Headache, unspecified (principal); I10 Essential (primary) hypertension; R06.02 Shortness of breath; R00.2 Palpitations; R07.89 Other chest pain; R11.0 Nausea; F41.0 Panic disorder [episodic paroxysmal anxiety]; Z87.891 Personal history of nicotine dependence; Z20.822 Contact with and (suspected) exposure to COVID-19
CPT/HCPCS: 0241U-QW; 36415; 71046-TC-FY; 80053; 81003; 84484; 85025; 85610; 85730; 93005; 93010; 99285-25; J0131